=== PATIENT | male | born 1945 | race Two or more races ===

== ENCOUNTER 2016-11-28 14:15 | Emergency (ER) | payer MEDICARE, OTHER ==
[2016-11-28] MEDS ORDERED: SODIUM CHLORIDE 0.9% 2,000 ML IV STA (14:39)
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
[2016-11-28 15:02] LABS: Appearance,Urine Clear (Clear); Basophils # (A) 0.1 k/uL (0-0.2); Basophils % (A) 1 %; Bilirubin,Urine Negative (Negative); CH 30.3; CHCM 33.6; Eosinophils # (A) 0.2 k/uL (0-0.7); Eosinophils % (A) 2 %; Glucose,Urine (UA) 4+ (Negative); HCT 43.7 % (39.0-53.0); HDW 2.45; HGB 14.4 gm/dL (13.0-17.5); Ketones,Urine 1+ (Negative); Leukocyte Esterase,Urine Negative (Negative); Luc # (Auto) 0.26; Luc % (Auto) 3; Lymphocytes % (A) 26 %; MCH 29.9 pg (25.0-35.0); MCHC 33.1 g/dL (31.0-37.0); MCV 90.5 fL (80.0-100.0); Mean Platelet Volume 7.3; Monocytes # (A) 0.5 k/uL (0-1.0); Monocytes % (A) 6 %; Neutrophils # (A) 4.9 k/uL (1.3-7.7); Neutrophils % (A) 63 %; Nitrite,Urine Negative (Negative); Protein,Urine Negative (Negative); RBC 4.83 m/uL (4.30-5.90); RDW 13.6 % (11.5-15.5); Specific Gravity,Urine 1.027 (1.001-1.035); UA Billing (MACRO vs. MICRO) CHEM; Urobilinogen,Urine <2.0 mg/dL (<2.0); WBC 7.8 k/uL (3.8-10.6)
[2016-11-28 15:15] LABS: ALT 53 U/L (21-72); AST 28 U/L (17-59); Alkaline Phosphatase 76 U/L (38-126); Anion Gap 14 mmol/L; Blood Urea Nitrogen 13 mg/dL (9-20); Calcium 9.5 mg/dL (8.4-10.2); Carbon Dioxide 23 mmol/L (22-30); Chloride 104 mmol/L (98-107); Glucose 200 mg/dL (74-99); Magnesium 1.6 mg/dL (1.6-2.3); Non-African American GFR(MDRD) >60 (>60 ml/min/1.73 sqM); Phosphorous 2.7 mg/dL (2.5-4.5); Potassium 3.7 mmol/L (3.5-5.1); Sodium 141 mmol/L (137-145); Total Bilirubin 0.5 mg/dL (0.2-1.3); Total Protein 7.2 g/dL (6.3-8.2)
[2016-11-28 15:21] LABS: Glucose,Whole Blood 193 mg/dL (75-99)
[2016-11-28] MEDS ORDERED: ACETAMINOPHEN TAB 500 MG TAB PO STA (15:31)
[2016-11-28 15:49] VITALS: BP 154/78; PULSE 74; RESP 16; TEMP 98.1
[2016-11-28 15:55] LABS: Glucose,Whole Blood 137 mg/dL (75-99)
[2016-11-29 10:44] LABS: Glucose,Whole Blood 223 mg/dL (75-99)
== END 2016-11-28 15:56 | disposition home or self-care (01) ==
LOC: EC 14:15
DX: E11.65 Type 2 diabetes mellitus with hyperglycemia (principal); Z79.84 Long term (current) use of oral hypoglycemic drugs; F17.200 Nicotine dependence, unspecified, uncomplicated
CPT/HCPCS: 36415; 80053; 81003; 82009; 83735; 84100; 85025; 87086; 96360; 99284

== ENCOUNTER 2017-02-28 07:33 | Emergency (ER) | payer MEDICARE, OTHER ==
[2017-02-28] MEDS ORDERED: FAMOTIDINE 20 MG/2 ML VIAL IV STA (08:13)
[2017-02-28] MEDS ORDERED: SODIUM CHLORIDE 0.9% 1,000 ML IV STA (08:13)
[2017-02-28] MEDS ORDERED: DICYCLOMINE 10 MG/ML 2 ML AMP IM STA (08:13)
[2017-02-28] MEDS ORDERED: ONDANSETRON 4 MG/2 ML VIAL IVP STA (08:13)
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
[2017-02-28 08:29] LABS: Basophils # (A) 0.1 k/uL (0-0.2); Basophils % (A) 1 %; CH 30.8; CHCM 34.6; Eosinophils # (A) 0.2 k/uL (0-0.7); Eosinophils % (A) 2 %; HDW 2.96; HGB 14.7 gm/dL (13.0-17.5); Luc # (Auto) 0.27; Luc % (Auto) 3; Lymphocytes # (A) 2.3 k/uL (1.0-4.8); Lymphocytes % (A) 27 %; MCH 30.7 pg (25.0-35.0); MCHC 34.3 g/dL (31.0-37.0); MCV 89.5 fL (80.0-100.0); Mean Platelet Volume 8.1; Monocytes # (A) 0.6 k/uL (0-1.0); Monocytes % (A) 7 %; Neutrophils # (A) 5.3 k/uL (1.3-7.7); Neutrophils % (A) 60 %; RDW 14.1 % (11.5-15.5); WBC 8.7 k/uL (3.8-10.6); WBC (Perox) 8.58
[2017-02-28 08:50] LABS: ALT 50 U/L (21-72); AST 37 U/L (17-59); Alkaline Phosphatase 107 U/L (38-126); Amylase 55 U/L (30-110); Anion Gap 12 mmol/L; Blood Urea Nitrogen 9 mg/dL (9-20); Calcium 9.1 mg/dL (8.4-10.2); Carbon Dioxide 27 mmol/L (22-30); Chloride 107 mmol/L (98-107); Glucose 132 mg/dL (74-99); Non-African American GFR(MDRD) >60 (>60 ml/min/1.73 sqM); Potassium 3.5 mmol/L (3.5-5.1); Sodium 146 mmol/L (137-145); Total Bilirubin 0.8 mg/dL (0.2-1.3); Total Protein 7.9 g/dL (6.3-8.2)
--- NOTE | 2017-02-28 09:05 | XR ---
EXAMINATION TYPE: XR KUB DATE OF EXAM: 02/28/2017 8:59 AM COMPARISON: 09/16/2016 HISTORY: Upper abdominal pain for 2 days with associated anorexia TECHNIQUE: Upright single abdominal radiograph was obtained in the KUB projection. FINDINGS: Cholecystectomy clips reside within the right upper quadrant. Surgical sutures are seen zuhair ng the left hemidiaphragm. There is a mild rotational dextroconvex curvature of the thoracolumbar spi ne. Bowel gas pattern is unremarkable and nonobstructive. No abnormal radiopaque densities are seen w ithin the abdomen or pelvis. IMPRESSION: 1. Nonobstructive bowel gas pattern. 2. No radiopaque calculi within the abdomen or pelvis. 3. Postsurgical changes along the left hemidiaphragm and within the gallbladder fossa.
[2017-02-28 09:39] VITALS: TEMP 98.3
[2017-02-28 09:39] LABS: Appearance,Urine Clear (Clear); Bilirubin,Urine Negative (Negative); Glucose,Urine (UA) 4+ (Negative); Ketones,Urine 1+ (Negative); Leukocyte Esterase,Urine Negative (Negative); Nitrite,Urine Negative (Negative); PH, Urine 8.5 (5.0-8.0); Protein,Urine Negative (Negative); Specific Gravity,Urine 1.022 (1.001-1.035); UA Billing (MACRO vs. MICRO) CHEM; Urobilinogen,Urine <2.0 mg/dL (<2.0)
[2017-02-28] MEDS ORDERED: MORPHINE SULFATE 4 MG/ML SYRINGE IV STA (09:39)
[2017-02-28] MEDS ORDERED: RX INFO: IV CONTRAST WAS GIVEN 1 EACH MISC MISCELLANE PRN (09:39)
--- NOTE | 2017-02-28 10:54 | CT ---
EXAMINATION TYPE: CT abdomen pelvis w con DATE OF EXAM: 02/28/2017 10:45 AM COMPARISON: 09/16/2016 HISTORY: Headache and Pain CT DLP: 797.00 mGycm Automated exposure control for dose reduction was used. TECHNIQUE: Helical acquisition of images was performed from the lung bases through the pelvis. CONTRAST: Performed with Oral Contrast and with IV Contrast, patient injected with 100 ml mL of Omnipaque 300. FINDINGS: LUNG BASES: Left hemidiaphragm elevation is similar to the prior with sutures along the left hemidiap hragm and left basilar atelectasis. Pleural parenchymal scarring is also noted on the right as well a s minimal right basilar atelectasis. LIVER/GB: Diffuse hypoattenuation of the hepatic parenchyma is noted compatible with underlying hepat ic steatosis. This finding limits evaluation for underlying hepatic masses. No gross evidence of hepa tic masses seen. Gallbladder is surgically absent. PANCREAS: No pancreatic ductal dilatation. Pancreas is abnormal enhancement and morphology. SPLEEN: No significant abnormality is seen. ADRENALS: No significant abnormality is seen. KIDNEYS: The kidneys enhance and excrete symmetrically. FREE AIR: No free air is visualized. RETROPERITONEAL ADENOPATHY: None visualized REPRODUCTIVE ORGANS: [place] gland is heterogenous and enlarged measuring up to 5.3 cm in greatest tr ansverse dimension. URINARY BLADDER: No significant abnormality is seen. PELVIC ADENOPATHY: None visualized. OSSEOUS STRUCTURES: No significant abnormality is seen. BOWEL: Scattered sigmoid diverticula are seen without pericolonic fat stranding. Bowel is nondilated and nonobstructed. Appendix is within normal limits of size. OTHER: Abdominal aorta is of normal course and caliber with calcified and noncalcified atheromatous c hanges of the abdominal aorta and its branches. IMPRESSION: 1. OVERALL UNCHANGED EXAM IN COMPARISON TO THE PRIOR WITH NO ACUTE INTRA-ABDOMINAL PATHOLOGY IDENTIFI ED. 2. HEPATIC STEATOSIS. 3. SIGMOID DIVERTICULOSIS WITHOUT EVIDENCE OF DIVERTICULITIS. 4. POSTSURGICAL CHANGES ALONG THE LEFT HEMIDIAPHRAGM WITH LEFT HEMIDIAPHRAGM ELEVATION AND LEFT BASIL AR ATELECTASIS.
[2017-02-28 11:30] VITALS: BP 123/76; PULSE 95; RESP 18
== END 2017-02-28 11:37 | disposition home or self-care (01) ==
LOC: EC 07:33
DX: R10.9 Unspecified abdominal pain (principal); R51 Headache; R63.8 Other symptoms and signs concerning food and fluid intake; E11.9 Type 2 diabetes mellitus without complications; F17.200 Nicotine dependence, unspecified, uncomplicated; Z79.84 Long term (current) use of oral hypoglycemic drugs; Z90.49 Acquired absence of other specified parts of digestive tract
CPT/HCPCS: 36415; 80053; 82150; 83690; 85025; 81003; 74000; 74177; 99285; 96374; 96375 ×2; 96372; J2270; J0500; J2405; Q9967

== ENCOUNTER 2017-05-19 11:43 | Emergency (ER) | payer MEDICARE, OTHER ==
[2017-05-19] MEDS ORDERED: SODIUM CHLORIDE 0.9% 1,000 ML IV STA (12:31)
[2017-05-19] MEDS ORDERED: SODIUM CHLORIDE 0.9% 500 ML IV STA (12:31)
[2017-05-19 12:38] LABS: Glucose,Whole Blood 111 mg/dL (75-99)
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
[2017-05-19 13:10] VITALS: TEMP 98
[2017-05-19] MEDS ORDERED: MORPHINE SULFATE 4 MG/ML SYRINGE IVP STA (13:11)
[2017-05-19] MEDS ORDERED: SODIUM CHLORIDE 0.9% 500 ML IV ONE (13:12)
[2017-05-19 13:14] LABS: Basophils # (A) 0.1 k/uL (0-0.2); Basophils % (A) 1 %; CH 29.8; CHCM 33.6; Eosinophils # (A) 0.2 k/uL (0-0.7); Eosinophils % (A) 2 %; HCT 44.8 % (39.0-53.0); HDW 2.51; HGB 14.8 gm/dL (13.0-17.5); Luc # (Auto) 0.18; Luc % (Auto) 2; Lymphocytes # (A) 2.5 k/uL (1.0-4.8); Lymphocytes % (A) 29 %; MCH 29.5 pg (25.0-35.0); MCHC 33.1 g/dL (31.0-37.0); MCV 89.1 fL (80.0-100.0); Mean Platelet Volume 7.7; Monocytes # (A) 0.5 k/uL (0-1.0); Monocytes % (A) 6 %; Neutrophils # (A) 5.2 k/uL (1.3-7.7); Neutrophils % (A) 61 %; RBC 5.03 m/uL (4.30-5.90); RDW 14.8 % (11.5-15.5); WBC 8.6 k/uL (3.8-10.6); WBC (Perox) 8.22
[2017-05-19 13:21] VITALS: PULSE 69
[2017-05-19 13:25] LABS: INR 0.9 (<1.2); Prothrombin Time 9.7 sec (9.0-12.0)
[2017-05-19 13:33] LABS: ALT 28 U/L (21-72); AST 25 U/L (17-59); Alkaline Phosphatase 95 U/L (38-126); Anion Gap 12 mmol/L; Blood Urea Nitrogen 6 mg/dL (9-20); Calcium 9.6 mg/dL (8.4-10.2); Carbon Dioxide 24 mmol/L (22-30); Chloride 103 mmol/L (98-107); Glucose 101 mg/dL (74-99); Magnesium 1.8 mg/dL (1.6-2.3); Non-African American GFR(MDRD) >60 (>60 ml/min/1.73 sqM); Phosphorous 2.8 mg/dL (2.5-4.5); Potassium 4.3 mmol/L (3.5-5.1); Sodium 139 mmol/L (137-145); Total Bilirubin 0.4 mg/dL (0.2-1.3); Total Protein 7.8 g/dL (6.3-8.2)
[2017-05-19 13:36] LABS: Creatine Kinase 128 U/L (55-170)
[2017-05-19 13:49] LABS: Creatine Kinase MB 1.3 ng/mL (0.0-2.4); Troponin I <0.012 ng/mL (0.000-0.034)
--- NOTE | 2017-05-19 13:54 | CT ---
EXAMINATION TYPE: CT brain wo con DATE OF EXAM: 05/19/2017 COMPARISON: Previous study dated 06/07/2016 HISTORY: Dizziness, MORENO, weakness CT DLP: 1121 mGycm Automated exposure control for dose reduction was used. FINDINGS: There are generalized changes of sulcal prominence and ventriculomegaly, compatible with mild atrophi c change. There is diffuse periventricular white matter lucency, compatible with small vessel ischemi c change. There is no acute focal lesion, mass effect or midline shift identified. I do not see evide nce of intracranial blood. There is a 1.8 cm retention cyst or polyp involving the inferior aspect of the right maxillary sinus. There is mild, chronic mucoperiosteal thickening involving the left maxillary sinus. The remaining p aranasal sinuses are clear. Fluid in the attic of both middle ears has cleared. IMPRESSION: 1. NO ACUTE INTRACRANIAL ABNORMALITY. 2. ATROPHIC CHANGE. 3. CHRONIC WHITE MATTER ISCHEMIC CHANGE. 4. MUCOPERIOSTEAL DISEASE INVOLVING BOTH MAXILLARY SINUSES.
--- NOTE | 2017-05-19 13:59 | XR ---
EXAMINATION TYPE: XR chest 2V DATE OF EXAM: 05/19/2017 COMPARISON: 09/16/2016 HISTORY: Shortness of breath TECHNIQUE: Frontal and lateral views of the chest are obtained. FINDINGS: Scattered senescent parenchymal changes noted. Hyperinflation compatible with COPD. No evidence for infiltrate. No evidence for atelectasis. Left basilar parenchymal scarring. Chronic p leural thickening bilateral costophrenic angles. Heart size is stable. Mediastinal structures are stable and grossly unremarkable. No evidence for hilar prominence. Degenerative changes dorsal spine. IMPRESSION: 1. No evidence for acute pulmonary disease.
[2017-05-19 14:24] VITALS: BP 119/71; RESP 17
== END 2017-05-19 14:45 | disposition home or self-care (01) ==
LOC: EC 11:43
DX: R53.1 Weakness (principal); R53.83 Other fatigue; R42 Dizziness and giddiness; R51 Headache; R41.82 Altered mental status, unspecified; E11.9 Type 2 diabetes mellitus without complications; F17.200 Nicotine dependence, unspecified, uncomplicated; Z79.84 Long term (current) use of oral hypoglycemic drugs; Z79.899 Other long term (current) drug therapy
CPT/HCPCS: 99284; 96374; 96361; 36415; 93005; 80053; 82550; 82553; 83735; 84100; 84484; 85025; 85610; 85730; 71020; 70450; J2270

== ENCOUNTER 2017-08-10 17:11 | Emergency (ER) | payer MEDICARE ==
[2017-08-10 17:28] VITALS: RESP 18; TEMP 98.7
[2017-08-10] MEDS ORDERED: SODIUM CHLORIDE 0.9% 1,000 ML IV STA ×2 (17:41)
[2017-08-10] MEDS ORDERED: ONDANSETRON 4 MG/2 ML VIAL IVP STA (17:41)
[2017-08-10] MEDS ORDERED: LORazepam 2 MG/ML INJ IV STA (17:41)
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
[2017-08-10 18:30] LABS: Basophils # (A) 0.1 k/uL (0-0.2); Basophils % (A) 1 %; CH 29.9; CHCM 32.7; Eosinophils # (A) 0.2 k/uL (0-0.7); Eosinophils % (A) 3 %; HCT 42.3 % (39.0-53.0); HDW 2.56; HGB 13.7 gm/dL (13.0-17.5); Luc # (Auto) 0.27; Luc % (Auto) 3; Lymphocytes # (A) 2.3 k/uL (1.0-4.8); Lymphocytes % (A) 25 %; MCH 29.7 pg (25.0-35.0); MCHC 32.3 g/dL (31.0-37.0); Mean Platelet Volume 7.4; Monocytes # (A) 0.7 k/uL (0-1.0); Monocytes % (A) 7 %; Neutrophils # (A) 5.4 k/uL (1.3-7.7); Neutrophils % (A) 61 %; RDW 14.5 % (11.5-15.5); WBC 8.9 k/uL (3.8-10.6); WBC (Perox) 8.78
[2017-08-10 18:35] LABS: Prothrombin Time 10.4 sec (9.0-12.0)
[2017-08-10 18:39] LABS: Appearance,Urine Clear (Clear); Bilirubin,Urine Negative (Negative); Glucose,Urine (UA) Negative (Negative); Ketones,Urine Negative (Negative); Leukocyte Esterase,Urine Negative (Negative); Nitrite,Urine Negative (Negative); Protein,Urine Trace (Negative); Specific Gravity,Urine 1.024 (1.001-1.035); UA Billing (MACRO vs. MICRO) CHEM; Urobilinogen,Urine <2.0 mg/dL (<2.0)
[2017-08-10 18:43] LABS: Glucose,Whole Blood 74 mg/dL (75-99)
[2017-08-10 18:45] LABS: ALT 24 U/L (21-72); AST 15 U/L (17-59); Alkaline Phosphatase 70 U/L (38-126); Amylase 49 U/L (30-110); Anion Gap 10 mmol/L; Blood Urea Nitrogen 18 mg/dL (9-20); Calcium 9.3 mg/dL (8.4-10.2); Carbon Dioxide 22 mmol/L (22-30); Chloride 110 mmol/L (98-107); Glucose 80 mg/dL (74-99); Non-African American GFR(MDRD) >60 (>60 ml/min/1.73 sqM); Potassium 3.6 mmol/L (3.5-5.1); Sodium 142 mmol/L (137-145); Total Bilirubin 0.2 mg/dL (0.2-1.3); Total Protein 7.2 g/dL (6.3-8.2)
--- NOTE | 2017-08-10 19:17 | XR ---
EXAMINATION TYPE: XR chest 2V DATE OF EXAM: 08/10/2017 COMPARISON: Prior chest x-ray 05/19/2017 HISTORY: Headache and dizziness, nausea, COPD TECHNIQUE: Frontal and lateral views of the chest are obtained. FINDINGS: Cardiac mediastinal silhouette, pulmonary vascularity and ramos are stable. There is some e levation of the left hemidiaphragm which is chronic. Patchy basilar density is noted. Interstitium is increased. There are overlying cardiac leads. There are areas of possible scarring present. Suspect there are calcified pleural plaques. Hyperinflation may be indicative of COPD. IMPRESSION: No acute cardiopulmonary process. Possible asbestos related disease.
--- NOTE | 2017-08-10 19:18 | XR ---
Abdomen HISTORY: Dizziness, nausea Frontal view of the abdomen on 2 images correlated to prior abdomen 02/28/2017 Calcified pleural plaque noted. There are basilar scarring changes. Surgical clips present in the rig ht upper quadrant. There is a mild spinal curvature. No evident bowel obstruction or pneumoperitoneum . There are vascular calcifications. IMPRESSION: Nonobstructive bowel gas pattern.
[2017-08-10] MEDS ORDERED: ORPHENADRINE 30 MG/ML 2 ML VIAL IVP STA (19:53)
[2017-08-10] MEDS ORDERED: KETOROLAC 30 MG/ML 1 ML VIAL IVP STA (19:53)
--- NOTE | 2017-08-10 19:54 | CT ---
EXAMINATION TYPE: CT brain wo con DATE OF EXAM: 08/10/2017 COMPARISON: Prior CT 05/19/2017 HISTORY: Headache and dizziness. History of diabetes. CT DLP: 1177.00 mGycm Automated exposure control for dose reduction was used. Helical acquisition through the brain FINDINGS: Minimal inflammatory change noted in the paranasal sinuses. Cerebral vascular calcifications are pres ent. There is no hemorrhage or hydrocephalus. Cortical atrophy is noted. Periventricular white matter shows patchy low attenuation. IMPRESSION: STABLE EXAM, NO ACUTE ABNORMALITY. AGE-RELATED CHANGES OF ATROPHY AND PROBABLE CHRONIC SMALL VESSEL I SCHEMIA. MILD SINUS DISEASE.
[2017-08-10 20:26] VITALS: BP 147/78; PULSE 66
== END 2017-08-10 20:25 | disposition home or self-care (01) ==
LOC: EC 17:11
DX: R51 Headache (principal); E11.649 Type 2 diabetes mellitus with hypoglycemia without coma; R11.0 Nausea; R10.816 Epigastric abdominal tenderness; I10 Essential (primary) hypertension; F17.200 Nicotine dependence, unspecified, uncomplicated; Z79.84 Long term (current) use of oral hypoglycemic drugs; Z79.899 Other long term (current) drug therapy
CPT/HCPCS: 96375 ×4; 96361 ×2; 96374 ×2; 99285 ×2; 36415; 93005; 80053; 82150; 83690; 84484; 85025; 85610; 81003; 71020; 74000; 70450; J2060; J2360; J2405; J1885

== ENCOUNTER 2017-10-15 14:56 | Emergency (ER) | payer MEDICARE | END 2017-10-15 16:40 | disposition home or self-care (01) | LOC: EC 14:56 | DX: L29.9 Pruritus, unspecified (principal); F17.200 Nicotine dependence, unspecified, uncomplicated | CPT/HCPCS: 99282 ==

== ENCOUNTER 2018-01-01 16:42 | Emergency (ER) | payer MEDICARE ==
[2018-01-01] MEDS ORDERED: SODIUM CHLORIDE 0.9% 500 ML IV ONE (17:19)
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
[2018-01-01 17:37] VITALS: RESP 18
[2018-01-01 17:50] LABS: Basophils # (A) 0.1 k/uL (0-0.2); Basophils % (A) 1 %; Eosinophils # (A) 0.2 k/uL (0-0.7); Eosinophils % (A) 2 %; HCT 40.3 % (39.0-53.0); HGB 13.7 gm/dL (13.0-17.5); Lymphocytes # (A) 2.3 k/uL (1.0-4.8); Lymphocytes % (A) 27 %; MCH 29.6 pg (25.0-35.0); MCHC 34.1 g/dL (31.0-37.0); MCV 86.8 fL (80.0-100.0); Mean Platelet Volume 7.1; Monocytes # (A) 0.5 k/uL (0-1.0); Monocytes % (A) 6 %; Neutrophils # (A) 5.2 k/uL (1.3-7.7); Neutrophils % (A) 61 %; Platelet Count 331 k/uL (150-450); RBC 4.65 m/uL (4.30-5.90); RDW 14.2 % (11.5-15.5); WBC 8.5 k/uL (3.8-10.6)
[2018-01-01 18:03] LABS: ALT 21 U/L (21-72); AST 26 U/L (17-59); Albumin 4.5 g/dL (3.5-5.0); Alkaline Phosphatase 88 U/L (38-126); Anion Gap 13 mmol/L; Blood Urea Nitrogen 12 mg/dL (9-20); Calcium 9.8 mg/dL (8.4-10.2); Carbon Dioxide 20 mmol/L (22-30); Chloride 105 mmol/L (98-107); Glucose 141 mg/dL (74-99); Potassium 4.5 mmol/L (3.5-5.1); Sodium 138 mmol/L (137-145); Total Bilirubin 0.5 mg/dL (0.2-1.3); Total Protein 7.9 g/dL (6.3-8.2)
[2018-01-01] MEDS ORDERED: KETOROLAC 30 MG/ML 1 ML VIAL IVP STA (18:16)
[2018-01-01] MEDS ORDERED: ACETAMINOPHEN TAB 325 MG TAB PO STA (18:16)
--- NOTE | 2018-01-01 18:35 | CT ---
EXAMINATION TYPE: CT brain wo con DATE OF EXAM: 01/01/2018 HISTORY: Headache CT DLP: 1051.6 mGycm. Automated Exposure Control for Dose Reduction was Utilized. TECHNIQUE: CT scan of the head is performed without contrast. COMPARISON: CT brain August 10, 2017. FINDINGS: There is no acute intracranial hemorrhage or midline shift identified. There is diffuse v entricular and sulcal prominence consistent with diffuse age-related cerebral atrophy. There is low- attenuation in the periventricular white matter consistent with chronic small vessel ischemic change. The globes remain intact bilaterally. There is persistent mild mucosal thickening and small polyp formation in bilateral ethmoid sinuses. Stable. There is chronic opacity and sclerosis of bilateral mastoid air cells redemonstrated IMPRESSION: No acute intracranial hemorrhage or midline shift. There is persistent mild diffuse age -related cerebral atrophy and moderate chronic small vessel ischemic change redemonstrated. No signif icant change from prior CT.
[2018-01-01 18:38] VITALS: PULSE 70
[2018-01-01 19:16] VITALS: BP 142/80; TEMP 98.7
[2018-01-01 19:19] LABS: T4, Free (Free Thyroxine) 1.19 ng/dL (0.78-2.19)
== END 2018-01-01 19:54 | disposition home or self-care (01) ==
LOC: EC 16:42
DX: E03.9 Hypothyroidism, unspecified (principal); R51 Headache; E11.9 Type 2 diabetes mellitus without complications; I10 Essential (primary) hypertension; F17.200 Nicotine dependence, unspecified, uncomplicated; Z79.84 Long term (current) use of oral hypoglycemic drugs; Z79.899 Other long term (current) drug therapy
CPT/HCPCS: 36415; 84439; 80053; 84443; 85025; 70450; 99284; 96374; 96361 ×2; J1885

== ENCOUNTER → 2018-02-01 | Outpatient (CLI) | payer MEDICARE ==
[2018-02-01 12:47] LABS: HCT 40.4 % (39.0-53.0); HGB 13.7 gm/dL (13.0-17.5); MCHC 33.8 g/dL (31.0-37.0); MCV 88.7 fL (80.0-100.0); Mean Platelet Volume 7.1; Platelet Count 315 k/uL (150-450); RBC 4.56 m/uL (4.30-5.90); RDW 14.2 % (11.5-15.5); WBC 9.3 k/uL (3.8-10.6)
[2018-02-01 13:09] LABS: ALT 33 U/L (21-72); AST 21 U/L (17-59); Albumin 4.5 g/dL (3.5-5.0); Alkaline Phosphatase 94 U/L (38-126); Anion Gap 16 mmol/L; Blood Urea Nitrogen 10 mg/dL (9-20); Calcium 9.6 mg/dL (8.4-10.2); Carbon Dioxide 24 mmol/L (22-30); Chloride 106 mmol/L (98-107); Glucose 122 mg/dL (74-99); Sodium 146 mmol/L (137-145); Total Bilirubin 0.3 mg/dL (0.2-1.3); Total Protein 7.6 g/dL (6.3-8.2)
== END | disposition home or self-care (01) ==
LOC: LABWHC1 12:03
PROVIDERS: ATTEND Physician Assistant
DX: L29.9 Pruritus, unspecified (principal)
CPT/HCPCS: 36415; 80053; 85027

== ENCOUNTER 2018-03-08 05:07 | Inpatient (IN) | payer MEDICARE ==
--- NOTE | 2018-03-08 07:07 | XR ---
EXAM: XR Chest, 2 Views CLINICAL HISTORY: ITS.REASON XR Reason: Pain TECHNIQUE: Frontal and lateral views of the chest. COMPARISON: 08/10/17. FINDINGS: Lungs: Redemonstration of chronic lung changes with prominent interstitial opacities and bibasilar scarring/atelectasis. Pleural space: Persistent elevated left hemidiaphragm. No pneumothorax. Heart: Stable cardiomediastinal silhouette. Mediastinum: See above. Bones/joints: Stable. IMPRESSION: Chronic lung changes with mild basilar opacities, query scarring/atelectasis. Mild superimposed acute process is difficult to completely exclude, recommend clinical correlation.
[2018-03-08] MEDS ORDERED: IPRATROPIUM 0.5 MG/2.5 ML NEBU INHALATION STA (07:44)
[2018-03-08] MEDS ORDERED: SODIUM CHLORIDE 0.9% 1,000 ML IV STA (07:44)
[2018-03-08] MEDS ORDERED: ALBUTEROL NEBULIZED 2.5 MG/3 ML INHALATION STA (07:44)
[2018-03-08] MEDS ORDERED: SODIUM CHLORIDE 0.9% 500 ML IV STA (07:44)
[2018-03-08] MEDS ORDERED: methylPREDNISolone SOD SUCCI 125 MG/2 ML VIAL IV STA (07:44)
[2018-03-08] MEDS ORDERED: MORPHINE SULFATE 4 MG/ML SYRINGE IVP STA (07:47)
[2018-03-08] MEDS ORDERED: MORPHINE SULFATE 4 MG/ML SYRINGE IVP PRN (07:47)
[2018-03-08] MEDS ORDERED: cefTRIAXone IN SWFI 1,000 MG/10 ML SYRINGE IVP STA (07:49)
[2018-03-08] MEDS ORDERED: AZITHROMYCIN 500 MG in SODIUM CHLORIDE 0.9% 250 ML IVPB STA (07:49)
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
[2018-03-08 08:19] LABS: Basophils % (A) 0 %; Eosinophils # (A) 0.4 k/uL (0-0.7); Eosinophils % (A) 4 %; HCT 37.3 % (39.0-53.0); HGB 12.3 gm/dL (13.0-17.5); Lymphocytes # (A) 2.2 k/uL (1.0-4.8); Lymphocytes % (A) 25 %; MCHC 33.1 g/dL (31.0-37.0); MCV 87.6 fL (80.0-100.0); Mean Platelet Volume 7.5; Monocytes # (A) 0.7 k/uL (0-1.0); Monocytes % (A) 7 %; Neutrophils # (A) 5.6 k/uL (1.3-7.7); Neutrophils % (A) 62 %; Platelet Count 326 k/uL (150-450); RBC 4.26 m/uL (4.30-5.90); RDW 14.2 % (11.5-15.5); WBC 9.1 k/uL (3.8-10.6)
[2018-03-08 08:33] LABS: ALT 31 U/L (21-72); AST 18 U/L (17-59); Alkaline Phosphatase 88 U/L (38-126); Anion Gap 13 mmol/L; Blood Urea Nitrogen 6 mg/dL (9-20); Carbon Dioxide 25 mmol/L (22-30); Chloride 104 mmol/L (98-107); Glucose 139 mg/dL (74-99); Magnesium 1.9 mg/dL (1.6-2.3); Potassium 3.8 mmol/L (3.5-5.1); Sodium 142 mmol/L (137-145); Total Bilirubin 0.3 mg/dL (0.2-1.3); Total Protein 6.6 g/dL (6.3-8.2)
[2018-03-08 08:41] LABS: Creatine Kinase 118 U/L (55-170)
[2018-03-08 08:42] LABS: D-Dimer 0.49 mg/L FEU (<0.60); INR 0.9 (<1.2); Partial Thromboplastin Time 23.7 sec (22.0-30.0); Prothrombin Time 9.4 sec (9.0-12.0)
[2018-03-08 08:54] LABS: Creatine Kinase MB 0.9 ng/mL (0.0-2.4); Troponin I <0.012 ng/mL (0.000-0.034)
[2018-03-08] MEDS ORDERED: NICOTINE 21MG/24HR PATCH TRANSDERM SCH (09:00)
--- NOTE | 2018-03-08 09:12 | XR ---
EXAMINATION TYPE: XR chest 2V DATE OF EXAM: 03/08/2018 COMPARISON: 08/10/2017 HISTORY: Difficulty breathing and cough TECHNIQUE: Frontal and lateral views of the chest are obtained. FINDINGS: There is pulmonary hyperinflation, biapical lucency and pleural parenchymal scarring versu s chronic atelectasis at the lung bases. Minimal left hemidiaphragm elevation is again chronic. Surgi ariella sutures overlying the right medial clavicle are noted. Probable cholecystectomy clips are seen. D egenerative changes of the glenohumeral joints and thoracic spine are mild. IMPRESSION: Chronic changes and sequela of COPD. No new acute cardiopulmonary process.
[2018-03-08] MEDS: ENOXAPARIN 40 MG/0.4 ML SYRINGE SQ SCH (11:07)
[2018-03-08] MEDS: IPRATROPIUM-ALBUTEROL 3 ML NEB INHALATION SCH ×3 (11:42→20:37)
[2018-03-08] MEDS ORDERED: methylPREDNISolone SOD SUCCI 125 MG/2 ML VIAL IV SCH (12:00)
[2018-03-08] MEDS ORDERED: IBUPROFEN 200 MG TAB PO PRN (12:02)
[2018-03-08] MEDS ORDERED: NALOXONE 0.4 MG/ML 1 ML VIAL IV PRN (12:03)
[2018-03-08] MEDS ORDERED: MELATONIN 3 MG TABLET PO PRN (12:03)
[2018-03-08] MEDS ORDERED: CALCIUM CARBONATE 500 MG CHEWABLE PO PRN (12:03)
[2018-03-08] MEDS ORDERED: ONDANSETRON 4 MG/2 ML VIAL IVP PRN (12:03)
[2018-03-08] MEDS ORDERED: ACETAMINOPHEN TAB 325 MG TAB PO PRN (12:03)
[2018-03-08 12:05] LABS: Glucose,Whole Blood 346 mg/dL (75-99)
[2018-03-08] MEDS ORDERED: INSULIN REGULAR BOLUS (FROM DRIP BAG) IV ONE (12:15)
[2018-03-08] MEDS ORDERED: INSULIN ASPART 100 UNIT/ML 1 ML 10 ML VIAL SQ SCH (12:30)
[2018-03-08] MEDS: INSULIN ASPART 100 UNIT/ML 1 ML 10 ML VIAL SQ SCH ×2 (12:48→18:00)
[2018-03-08] MEDS: INSULIN REGULAR 100 UNIT in SODIUM CHLORIDE 0.9% 100 ML IV SCH (12:48)
[2018-03-08] MEDS: metFORMIN 500 MG TAB PO SCH ×2 (12:53→20:48)
[2018-03-08] MEDS: HYDROcodone/APAP 10-325MG 1 EACH TAB PO PRN (12:53)
[2018-03-08] MEDS: LEVOTHYROXINE 25 MCG TAB PO SCH (12:54)
[2018-03-08] MEDS: LOSARTAN 50 MG TAB PO SCH (12:54)
[2018-03-08 13:37] LABS: Glucose,Whole Blood 312 mg/dL (75-99)
[2018-03-08 13:51] LABS: Glucose,Whole Blood 244 mg/dL (75-99)
[2018-03-08 15:18] LABS: Glucose,Whole Blood 160 mg/dL (75-99)
[2018-03-08] MEDS: MORPHINE ORAL SOLN 10 MG/5 ML CUP PO PRN ×2 (16:26→22:42)
[2018-03-08] MEDS: NICOTINE 14MG/24HR PATCH TRANSDERM SCH (16:27)
[2018-03-08] MEDS: BUDESONIDE 1 MG/2 ML NEBU INHALATION SCH ×2 (16:37→20:37)
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
[2018-03-08] MEDS: guaiFENesin 600 MG TABLET.ER PO SCH ×2 (17:26→20:49)
[2018-03-08 17:33] LABS: Glucose,Whole Blood 148 mg/dL (75-99)
[2018-03-08 19:25] LABS: Hemoglobin A1C 7.4 % (4.0-6.0)
[2018-03-08 19:30] LABS: Glucose,Whole Blood 216 mg/dL (75-99)
[2018-03-08 21:15] LABS: Glucose,Whole Blood 237 mg/dL (75-99)
[2018-03-08] MEDS: ALPRAZolam 0.25 MG TAB PO PRN (22:42)
[2018-03-08] MEDS: methylPREDNISolone SOD SUCCI 40 MG/ML 1 ML VIAL IV SCH (22:43)
[2018-03-08 23:18] LABS: Glucose,Whole Blood 198 mg/dL (75-99)
[2018-03-09] MEDS: IPRATROPIUM-ALBUTEROL 3 ML NEB INHALATION SCH ×8 (00:22→23:55)
[2018-03-09 01:18] LABS: Glucose,Whole Blood 209 mg/dL (75-99)
[2018-03-09 03:28] LABS: Glucose,Whole Blood 195 mg/dL (75-99)
[2018-03-09 05:26] LABS: Glucose,Whole Blood 183 mg/dL (75-99)
[2018-03-09] MEDS: MORPHINE ORAL SOLN 10 MG/5 ML CUP PO PRN ×2 (05:36→20:08)
[2018-03-09] MEDS: LEVOTHYROXINE 25 MCG TAB PO SCH (06:08)
[2018-03-09] MEDS: INSULIN REGULAR 100 UNIT in SODIUM CHLORIDE 0.9% 100 ML IV SCH (07:02)
[2018-03-09 07:22] LABS: Glucose,Whole Blood 170 mg/dL (75-99)
[2018-03-09] MEDS: NICOTINE 14MG/24HR PATCH TRANSDERM SCH (07:56)
[2018-03-09] MEDS: ENOXAPARIN 40 MG/0.4 ML SYRINGE SQ SCH (07:56)
[2018-03-09] MEDS: methylPREDNISolone SOD SUCCI 40 MG/ML 1 ML VIAL IV SCH ×3 (07:56→23:04)
[2018-03-09] MEDS: INSULIN ASPART 100 UNIT/ML 1 ML 10 ML VIAL SQ SCH ×4 (07:56→23:05)
[2018-03-09] MEDS: cefTRIAXone IN SWFI 1,000 MG/10 ML SYRINGE IVP SCH (07:56)
[2018-03-09] MEDS: LOSARTAN 50 MG TAB PO SCH (07:57)
[2018-03-09] MEDS: metFORMIN 500 MG TAB PO SCH ×2 (07:57→21:49)
[2018-03-09] MEDS: guaiFENesin 600 MG TABLET.ER PO SCH ×2 (07:57→21:50)
[2018-03-09] MEDS: BUDESONIDE 1 MG/2 ML NEBU INHALATION SCH ×2 (08:21→19:12)
[2018-03-09] MEDS ORDERED: AZITHROMYCIN 500 MG in SODIUM CHLORIDE 0.9% 250 ML IVPB SCH (09:00)
[2018-03-09 09:12] LABS: Glucose,Whole Blood 252 mg/dL (75-99)
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
[2018-03-09 11:35] LABS: Glucose,Whole Blood 154 mg/dL (75-99)
[2018-03-09 13:52] LABS: Glucose,Whole Blood 238 mg/dL (75-99)
--- NOTE | 2018-03-09 14:55 | CT ---
EXAMINATION TYPE: CT chest wo con DATE OF EXAM: 03/09/2018 COMPARISON: CT chest February 13, 2010. HISTORY: Shortness of breath and cough for [address] DLP: 604 mGycm. Automated Exposure Control for Dose Reduction was Utilized. TECHNIQUE: CT scan of the thorax is performed without IV contrast. FINDINGS: LUNGS: There is persistent elevated left hemidiaphragm. There is persistent bibasilar scarring and/or atelectasis. There is background mild to moderate emphysematous change most prominent in the lung ap ices with mild to moderate biapical pleural/parenchymal scarring. There is stable 5 x 4 mm nodule axi al image 30 unchanged from prior study axial image 25. No new consolidation or groundglass opacity is seen. No pleural effusion or pneumothorax is evident bilaterally. Calcification or less likely sutur es are noted at level of left hemidiaphragm. Correlate clinically MEDIASTINUM: Lack of IV contrast is noted to limit evaluation for mediastinal and especially hilar ad enopathy. There are no definitive new greater than 1 cm hilar or mediastinal lymph nodes. Subcarinal lymph node measures 1.8 x 1.1 cm on axial image 32 not significantly changed from prior study. No c ardiomegaly or pericardial effusion is seen. There is 4 vessel origin from aortic arch which is que l variant. OTHER: Visualized liver is hypodense consistent with fatty infiltration. Cholecystectomy clips are re demonstrated. Slight underlying scoliosis and upper thoracic spine is again seen. There is mild to mo derate multilevel anterior and lateral spurring in the lower thoracic spine. IMPRESSION: Chronic emphysematous change with bibasilar scarring and/or atelectasis and elevated left hemidiaphragm. No suspicious acute pulmonary process.
[2018-03-09 15:07] LABS: Glucose,Whole Blood 189 mg/dL (75-99)
[2018-03-09] MEDS: HYDROcodone/APAP 10-325MG 1 EACH TAB PO PRN (15:21)
[2018-03-09 17:13] LABS: Glucose,Whole Blood 131 mg/dL (75-99)
[2018-03-09 18:49] LABS: Glucose,Whole Blood 205 mg/dL (75-99)
[2018-03-09 20:59] LABS: Glucose,Whole Blood 315 mg/dL (75-99)
--- NOTE | 2018-03-09 21:23 | PN ---
PROGRESS NOTE DATE OF SERVICE: 03/09/18. PRESENTING COMPLAINT: Short of breath, wheezing. INTERVAL HISTORY: The patient is a smoker who presented with COPD exacerbation, cough, some little sputum, up to the bathroom. Feels a shade better. Did tolerate a diet. Did some wheezing and still some wheezing and cough is present. REVIEW OF SYSTEMS: Done for constitutional, cardiovascular, GI, pulmonary and relevant findings as above. CURRENT MEDICATIONS: Reviewed that include IV Solu-Medrol, nebulized bronchodilator, Azithromycin, ceftriaxone. PHYSICAL EXAMINATION: Temperature 98.7, pulse 100, respirations 17, blood pressure 132/86, pulse ox 91% on room air. General appearance: Sitting up, awake. Eyes pupils are equal. Conjunctivae normal. HEENT external appearance of nose and ears normal. Oral cavity normal. Neck JVD not raised. Mass not palpable. Respiratory effort increased. Lungs decreased breath sounds. Some basal crackles. Prolonged expiration. Cardiovascular first and second sounds normal. No edema. ABDOMEN: Soft, nontender. Liver and spleen not palpable. PSYCHIATRY: Alert and oriented x3. Mood and affect slightly anxious. INVESTIGATIONS: Accu-Cheks are noted. ASSESSMENT: 1. Acute right lower lobe pneumonia suspect gram-negative organism, present on admission. 2. Acute chronic obstructive pulmonary disease exacerbation in a patient known smoker. 3. Chronic nicotine dependence patient is a cigarette smoker. 4. Diabetes mellitus type 2, uncontrolled, hypoglycemia, remains on insulin drip. 5. Essential hypertension. 6. Hypothyroidism. 7. Chronic low back pain from osteoarthritis. 8. Hyperglycemia, uncontrolled, steroids, patient requiring insulin drip. PLAN: Continue current medication and treatment plan. We will stop the insulin drip and use some Lantus instead. MMODL / IJN: [id number] /
[2018-03-09] MEDS: INSULIN DETEMIR 100 UNIT/ML 10 ML VIAL SQ SCH (21:49)
[2018-03-09 22:13] LABS: Glucose,Whole Blood 288 mg/dL (75-99)
[2018-03-10] MEDS: HYDROcodone/APAP 10-325MG 1 EACH TAB PO PRN ×2 (02:05→10:37)
[2018-03-10] MEDS: IPRATROPIUM-ALBUTEROL 3 ML NEB INHALATION SCH ×6 (03:45→23:48)
[2018-03-10] MEDS: LEVOTHYROXINE 25 MCG TAB PO SCH (06:29)
[2018-03-10 07:05] LABS: Glucose,Whole Blood 197 mg/dL (75-99)
[2018-03-10] MEDS: metFORMIN 500 MG TAB PO SCH ×2 (07:55→21:06)
[2018-03-10] MEDS: guaiFENesin 600 MG TABLET.ER PO SCH ×2 (07:55→21:06)
[2018-03-10] MEDS: methylPREDNISolone SOD SUCCI 40 MG/ML 1 ML VIAL IV SCH ×3 (07:55→23:01)
[2018-03-10] MEDS: cefTRIAXone IN SWFI 1,000 MG/10 ML SYRINGE IVP SCH (07:55)
[2018-03-10] MEDS: LOSARTAN 50 MG TAB PO SCH (07:56)
[2018-03-10] MEDS: ENOXAPARIN 40 MG/0.4 ML SYRINGE SQ SCH (07:56)
[2018-03-10] MEDS: AZITHROMYCIN 500 MG TAB PO SCH (07:56)
[2018-03-10] MEDS: INSULIN ASPART 100 UNIT/ML 1 ML 10 ML VIAL SQ SCH ×7 (07:56→20:40)
[2018-03-10] MEDS: BUDESONIDE 1 MG/2 ML NEBU INHALATION SCH ×2 (08:59→19:31)
[2018-03-10 09:13] LABS: Anion Gap 18 mmol/L; Blood Urea Nitrogen 14 mg/dL (9-20); Calcium 9.7 mg/dL (8.4-10.2); Carbon Dioxide 22 mmol/L (22-30); Chloride 102 mmol/L (98-107); Glucose 209 mg/dL (74-99); Potassium 3.9 mmol/L (3.5-5.1); Sodium 142 mmol/L (137-145)
[2018-03-10 11:39] LABS: Glucose,Whole Blood 205 mg/dL (75-99)
[2018-03-10 17:33] LABS: Glucose,Whole Blood 152 mg/dL (75-99)
[2018-03-10] MEDS: MORPHINE ORAL SOLN 10 MG/5 ML CUP PO PRN (17:33)
[2018-03-10] MEDS: NICOTINE 14MG/24HR PATCH TRANSDERM SCH (17:33)
[2018-03-10 20:33] LABS: Glucose,Whole Blood 103 mg/dL (75-99)
[2018-03-10] MEDS: INSULIN DETEMIR 100 UNIT/ML 10 ML VIAL SQ SCH (21:06)
--- NOTE | 2018-03-11 00:09 | PN ---
PROGRESS NOTE DATE OF SERVICE: March 10, 2018. PRESENTING COMPLAINT: Short of breath. INTERVAL HISTORY: Patient is a smoker, presented with COPD exacerbation. Still this sputum is coming up. Still wheezing, feeling a shade better. Diet is improving. He has been up to the bathroom a couple of times. REVIEW OF SYSTEMS: Done for constitutional, cardiovascular, GI, pulmonary findings as above. CURRENT MEDICATIONS: Reviewed that include Zithromax and ceftriaxone. PHYSICAL EXAMINATION: Temperature 97.2, pulse 72, respiratory 18, blood pressure fluctuating, will get a 2nd reading. Last reading was 198/88, though also reading with 140 present pulse ox 98% on room air. General appearance: Sitting up in bed, awake. Eyes: Pupils equal, conjunctivae normal. HEENT external appearance of nose and ears normal. Oral cavity normal. Neck JVD not raised. Mass not palpable. Respiratory effort increased. Lungs decreased breath sounds. Prolonged expiration and wheezing. Cardiovascular: 1st and 2nd sounds normal. No edema. ABDOMEN: Soft, nontender. Liver and spleen not palpable. Psychiatry: Alert and oriented x3. Mood and affect normal. INVESTIGATIONS: CT scan of chest shows elevated left diaphragm. Potassium 3.9. Hematocrit is normal. Accu-Cheks are noted. ASSESSMENT: 1. Pneumonia suspect gram-negative organism, slowly improving. 2. Acute chronic obstructive pulmonary disease exacerbation in a patient with known smoker. 3. Chronic nicotine dependence in a cigarette smoker. 4. Diabetes mellitus type 2 uncontrolled. 5. Hyperglycemia. Remains on insulin drip. 6. Essential hypertension. 7. Hypothyroidism. 8. Chronic low back pain from osteoarthritis. 9. Chronically elevated left diaphragm. PLAN: Continue medication and treatment plan. Care was discussed with the patient. Encouraged to ambulate. MMODL / IJN: [id number] /
[2018-03-11] MEDS: IPRATROPIUM-ALBUTEROL 3 ML NEB INHALATION SCH ×6 (02:56→23:55)
[2018-03-11] MEDS: ALPRAZolam 0.25 MG TAB PO PRN (03:22)
[2018-03-11] MEDS: LEVOTHYROXINE 25 MCG TAB PO SCH (06:43)
[2018-03-11] MEDS: HYDROcodone/APAP 10-325MG 1 EACH TAB PO PRN ×2 (07:16→22:32)
[2018-03-11 07:19] LABS: Glucose,Whole Blood 199 mg/dL (75-99)
[2018-03-11] MEDS: BUDESONIDE 1 MG/2 ML NEBU INHALATION SCH ×2 (07:28→20:10)
[2018-03-11] MEDS: INSULIN ASPART 100 UNIT/ML 1 ML 10 ML VIAL SQ SCH ×7 (08:09→20:47)
[2018-03-11] MEDS: methylPREDNISolone SOD SUCCI 40 MG/ML 1 ML VIAL IV SCH ×3 (08:09→20:40)
[2018-03-11] MEDS: cefTRIAXone IN SWFI 1,000 MG/10 ML SYRINGE IVP SCH (08:09)
[2018-03-11] MEDS: guaiFENesin 600 MG TABLET.ER PO SCH ×2 (08:10→20:40)
[2018-03-11] MEDS: ENOXAPARIN 40 MG/0.4 ML SYRINGE SQ SCH (08:10)
[2018-03-11] MEDS: LOSARTAN 50 MG TAB PO SCH (08:10)
[2018-03-11] MEDS: metFORMIN 500 MG TAB PO SCH ×2 (08:10→20:40)
[2018-03-11] MEDS: AZITHROMYCIN 500 MG TAB PO SCH (08:10)
[2018-03-11] MEDS: NICOTINE 14MG/24HR PATCH TRANSDERM SCH (08:25)
[2018-03-11 08:55] LABS: Anion Gap 16 mmol/L; Blood Urea Nitrogen 20 mg/dL (9-20); Calcium 9.7 mg/dL (8.4-10.2); Carbon Dioxide 25 mmol/L (22-30); Chloride 99 mmol/L (98-107); Glucose 207 mg/dL (74-99); Potassium 4.7 mmol/L (3.5-5.1); Sodium 140 mmol/L (137-145)
[2018-03-11] MEDS: MORPHINE ORAL SOLN 10 MG/5 ML CUP PO PRN ×2 (11:12→18:16)
[2018-03-11] MEDS ORDERED: MAGNESIUM HYDROXIDE 2,400 MG/10 ML CUP PO PRN (11:57)
[2018-03-11 12:29] LABS: Glucose,Whole Blood 171 mg/dL (75-99)
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
[2018-03-11 16:50] LABS: Glucose,Whole Blood 279 mg/dL (75-99)
[2018-03-11] MEDS: CEFUROXIME 250 MG TAB PO SCH (20:40)
[2018-03-11] MEDS: INSULIN DETEMIR 100 UNIT/ML 10 ML VIAL SQ SCH (20:47)
--- NOTE | 2018-03-11 20:49 | PN ---
PROGRESS NOTE DATE OF SERVICE: 03/11/2018 PRESENTING COMPLAINT: Short of breath. INTERVAL HISTORY: Patient with a COPD exacerbation. Breathing is getting better, still short of breath when he gets about. Overall doing better, tolerating his diet well, being followed by Pulmonary. REVIEW OF SYSTEMS: Done for constitutional, cardiovascular, GI, pulmonary; relevant findings as above. CURRENT MEDICATIONS: Reviewed that include IV Solu-Medrol. EXAMINATION: Temperature 98.3, pulse 92, respirations 18, blood pressure 162/95 pulse ox 98% on 2L. GENERAL APPEARANCE: Sitting up, not in distress. EYES: Pupils equal. Conjunctivae normal. HEENT: External nose and ears normal. Oral cavity normal. NECK: JVD not raised. Mass not palpable. RESPIRATORY: Effort increased. LUNGS: Decreased breath sounds. Prolonged expiration, wheezing. CARDIOVASCULAR: First and second sounds normal. No edema. ABDOMEN: Soft, nontender. Liver and spleen not palpable. PSYCHIATRY: Alert and oriented x3. Mood and affect anxious-appearing. INVESTIGATIONS: Potassium 4.7. Accu-Cheks are noted. ASSESSMENT: 1. Pneumonia, suspect gram-negative organism, improving. 2. Acute chronic obstructive pulmonary disease exacerbation in a patient with known smoker, slow to respond. 3. Chronic nicotine dependence in a cigarette smoker. 4. Diabetes mellitus type 2, uncontrolled with hyperglycemia. The patient has been on insulin drip. 5. Essential hypertension. 6. Hypothyroidism. 7. Chronic low back pain from osteoarthritis. 8. Chronically elevated left diaphragm. The patient is off the insulin drip. Continue current medication and treatment plan. Since the patient is afebrile, will switch over to oral antibiotic. MMODL / IJN: [id number] /
[2018-03-11 20:52] LABS: Glucose,Whole Blood 232 mg/dL (75-99)
[2018-03-12] MEDS: IPRATROPIUM-ALBUTEROL 3 ML NEB INHALATION SCH ×5 (03:39→20:32)
[2018-03-12] MEDS: LEVOTHYROXINE 25 MCG TAB PO SCH (06:13)
[2018-03-12 07:28] LABS: Glucose,Whole Blood 264 mg/dL (75-99)
[2018-03-12] MEDS: INSULIN ASPART 100 UNIT/ML 1 ML 10 ML VIAL SQ SCH ×7 (08:05→21:44)
[2018-03-12] MEDS: ENOXAPARIN 40 MG/0.4 ML SYRINGE SQ SCH (08:06)
[2018-03-12] MEDS: CEFUROXIME 250 MG TAB PO SCH ×2 (08:06→21:47)
[2018-03-12] MEDS: methylPREDNISolone SOD SUCCI 40 MG/ML 1 ML VIAL IV SCH (08:06)
[2018-03-12] MEDS: metFORMIN 500 MG TAB PO SCH ×2 (08:06→21:46)
[2018-03-12] MEDS: guaiFENesin 600 MG TABLET.ER PO SCH ×2 (08:07→21:46)
[2018-03-12] MEDS: LOSARTAN 50 MG TAB PO SCH (08:07)
[2018-03-12] MEDS: AZITHROMYCIN 500 MG TAB PO SCH (08:07)
[2018-03-12] MEDS: NICOTINE 14MG/24HR PATCH TRANSDERM SCH (08:08)
[2018-03-12 08:33] LABS: Anion Gap 15 mmol/L; Blood Urea Nitrogen 21 mg/dL (9-20); Calcium 9.9 mg/dL (8.4-10.2); Carbon Dioxide 23 mmol/L (22-30); Chloride 98 mmol/L (98-107); Glucose 234 mg/dL (74-99); Potassium 4.4 mmol/L (3.5-5.1); Sodium 136 mmol/L (137-145)
[2018-03-12] MEDS: BUDESONIDE 1 MG/2 ML NEBU INHALATION SCH ×2 (08:43→20:32)
[2018-03-12] MEDS: MORPHINE ORAL SOLN 10 MG/5 ML CUP PO PRN (11:13)
[2018-03-12 12:14] LABS: Glucose,Whole Blood 262 mg/dL (75-99)
[2018-03-12 17:19] LABS: Glucose,Whole Blood 140 mg/dL (75-99)
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
[2018-03-12] MEDS: HYDROcodone/APAP 10-325MG 1 EACH TAB PO PRN (18:22)
--- NOTE | 2018-03-12 20:43 | PN ---
PROGRESS NOTE DATE OF SERVICE: March 12, 2018. PRESENT COMPLAINT: Short of breath. INTERVAL HISTORY: The patient presented with COPD exacerbation. Cough is getting better. Sputum production is minimal. Appetite is getting better. Up and about from the bathroom. REVIEW OF SYSTEMS: Done for constitutional, cardiovascular, GI, pulmonary; relevant findings as above. CURRENT MEDICATIONS: Reviewed that include IV Solu-Medrol, bronchodilators, Zithromax, Ceftin. PHYSICAL EXAMINATION: Temperature 99.2, pulse 93, respiration 16, blood pressure 127/78, pulse ox 98% on room air. General appearance: Sitting up in a chair, more comfortable. Eyes pupils are equal. Conjunctivae normal. HEENT: External appearance of nose and ears normal. Oral cavity normal. Neck JVD not raised. Mass not palpable. Respiratory effort increased. Lungs decreased breath sounds. Decreased wheezing. Cardiovascular 1st and second sounds normal. No edema. ABDOMEN: Soft, nontender. Liver and spleen not palpable. Psychiatry: Alert and oriented x3. Mood and affect normal. INVESTIGATIONS: Potassium 4.4. Accu-Cheks are noted. ASSESSMENT: 1. Pneumonia suspect gram-negative organism. Continues to improve. 2. Acute chronic obstructive pulmonary disease exacerbation in a no smoker getting better. 3. Chronic nicotine dependence in a cigarette smoker. 4. Diabetes mellitus type 2, uncontrolled with hypoglycemia. 5. Essential hypertension. 6. Hypothyroidism. 7. Chronic low back pain from osteoarthritis. 8. Chronically elevated left diaphragm. PLAN: Overall doing much better. Patient was switched over to oral steroids. Care was discussed with the patient. Looking for possible discharge tomorrow. MMODL / IJN: [id number] /
[2018-03-12 21:09] LABS: Glucose,Whole Blood 116 mg/dL (75-99)
[2018-03-12] MEDS: predniSONE 20 MG TAB PO SCH (21:46)
[2018-03-12] MEDS: INSULIN DETEMIR 100 UNIT/ML 10 ML VIAL SQ SCH (21:47)
[2018-03-13] MEDS: IPRATROPIUM-ALBUTEROL 3 ML NEB INHALATION SCH ×4 (00:25→11:43)
[2018-03-13] MEDS: LEVOTHYROXINE 25 MCG TAB PO SCH (06:21)
[2018-03-13 07:39] LABS: Glucose,Whole Blood 222 mg/dL (75-99)
[2018-03-13 07:43] VITALS: BP 134/82; RESP 16; TEMP 97.4
[2018-03-13] MEDS: CEFUROXIME 250 MG TAB PO SCH (07:45)
[2018-03-13] MEDS: INSULIN ASPART 100 UNIT/ML 1 ML 10 ML VIAL SQ SCH ×4 (07:45→12:05)
[2018-03-13] MEDS: AZITHROMYCIN 500 MG TAB PO SCH (07:46)
[2018-03-13] MEDS: guaiFENesin 600 MG TABLET.ER PO SCH (07:46)
[2018-03-13] MEDS: metFORMIN 500 MG TAB PO SCH (07:46)
[2018-03-13] MEDS: ENOXAPARIN 40 MG/0.4 ML SYRINGE SQ SCH (07:46)
[2018-03-13] MEDS: LOSARTAN 50 MG TAB PO SCH (07:47)
[2018-03-13] MEDS: predniSONE 20 MG TAB PO SCH (07:47)
[2018-03-13] MEDS: BUDESONIDE 1 MG/2 ML NEBU INHALATION SCH (08:01)
[2018-03-13 11:56] VITALS: PULSE 96
[2018-03-13 12:09] LABS: Glucose,Whole Blood 182 mg/dL (75-99)
[2018-03-13 12:37] LABS: Anion Gap 17 mmol/L; Blood Urea Nitrogen 25 mg/dL (9-20); Calcium 10.1 mg/dL (8.4-10.2); Carbon Dioxide 22 mmol/L (22-30); Chloride 99 mmol/L (98-107); Glucose 221 mg/dL (74-99); Potassium 4.9 mmol/L (3.5-5.1); Sodium 138 mmol/L (137-145)
--- NOTE | 2018-03-14 06:10 | DS ---
DISCHARGE SUMMARY DATE OF ADMISSION: 03/08/2018 DATE OF DISCHARGE: 03/13/2018 FINAL DIAGNOSES: 1. Pneumonia suspect gram-negative organism. 2. Acute chronic obstructive pulmonary disease exacerbation in a current smoker. 3. Chronic nicotine dependence in a cigarette smoker. 4. Diabetes mellitus type 2, uncontrolled with hyperglycemia. 5. Essential hypertension. 6. Hypothyroidism. 7. Chronic low back pain from osteoarthritis. 8. Chronically elevated left diaphragm. HOSPITAL COURSE: This is a patient presented with pneumonia, COPD exacerbation, doing much better with antibiotics. By the time of discharge, tolerating a diet. ON EXAM: LUNGS: Improved air entry. CARDIOVASCULAR: First and second sounds normal. CONSULTATION: Dr. Bakari Herbert from Pulmonary. DISCHARGE MEDICATIONS: 1. Metformin 1000 mg b.i.d. 2. Cozaar 100 mg daily. 3. Advil 200 mg q.8 p.r.n. 4. Synthroid 25 mcg a day. 5. [place] 10 one tablet t.i.d. p.r.n. 6. Ceftin 500 mg p.o. b.i.d. 6 tablets. 7. DuoNeb t.i.d. 8. Melatonin 3 mg at bedtime p.r.n. 9. Nicotine patch 14, 30. 10.Prednisone taper. Follow up with Dr. Bakari Herbert in one week. MMODL / IJN: [id number] /
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
== END 2018-03-13 15:22 | disposition home or self-care (01) | DRG 177 ==
LOC: EC 05:07 → 4MS4W 07:45
PROVIDERS: ADMIT Hospitalist; ATTEND Hospitalist
DX: J15.6 Pneumonia due to other Gram-negative bacteria (principal); J96.21 Acute and chronic respiratory failure with hypoxia; J44.0 Chronic obstructive pulmonary disease with (acute) lower respiratory infection; J44.1 Chronic obstructive pulmonary disease with (acute) exacerbation; E11.42 Type 2 diabetes mellitus with diabetic polyneuropathy; E11.65 Type 2 diabetes mellitus with hyperglycemia; E03.9 Hypothyroidism, unspecified; F17.210 Nicotine dependence, cigarettes, uncomplicated; T38.0X5A Adverse effect of glucocorticoids and synthetic analogues, initial encounter; G89.29 Other chronic pain; I11.9 Hypertensive heart disease without heart failure; K21.9 Gastro-esophageal reflux disease without esophagitis; J98.6 Disorders of diaphragm; M47.9 Spondylosis, unspecified; K40.90 Unilateral inguinal hernia, without obstruction or gangrene, not specified as recurrent; M19.90 Unspecified osteoarthritis, unspecified site; M54.5 Low back pain; Z79.899 Other long term (current) drug therapy; Z79.890 Hormone replacement therapy; Z79.84 Long term (current) use of oral hypoglycemic drugs; Z90.49 Acquired absence of other specified parts of digestive tract; Z90.2 Acquired absence of lung [part of]; Z83.3 Family history of diabetes mellitus; Y92.009 Unspecified place in unspecified non-institutional (private) residence as the place of occurrence of the external cause
CPT/HCPCS: 36415; 71046; 71250; 80048; 80053; 82550; 82553; 83036; 83735; 84484; 85025; 85379; 85610; 85730; 93005; 94640; 94760; 96374; 96375; 99285

== ENCOUNTER 2018-09-12 08:33 | Emergency (ER) | payer MEDICARE ==
[2018-09-12 08:59] VITALS: RESP 18
[2018-09-12] MEDS ORDERED: ONDANSETRON 4 MG/2 ML VIAL IVP STA (09:26)
[2018-09-12] MEDS ORDERED: HYDROmorphone 1 MG/ML 1 ML SYRINGE IVP STA (09:26)
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
[2018-09-12 10:26] LABS: Basophils % (A) 1 %; Eosinophils # (A) 0.2 k/uL (0-0.7); Eosinophils % (A) 2 %; HCT 43.6 % (39.0-53.0); HGB 14.2 gm/dL (13.0-17.5); Lymphocytes # (A) 1.9 k/uL (1.0-4.8); Lymphocytes % (A) 23 %; MCH 29.1 pg (25.0-35.0); MCHC 32.6 g/dL (31.0-37.0); MCV 89.4 fL (80.0-100.0); Mean Platelet Volume 7.3; Monocytes # (A) 0.5 k/uL (0-1.0); Monocytes % (A) 6 %; Neutrophils # (A) 5.6 k/uL (1.3-7.7); Neutrophils % (A) 66 %; Platelet Count 324 k/uL (150-450); RBC 4.87 m/uL (4.30-5.90); RDW 13.6 % (11.5-15.5); WBC 8.5 k/uL (3.8-10.6)
[2018-09-12 10:33] LABS: ALT 30 U/L (21-72); AST 37 U/L (17-59); Albumin 4.5 g/dL (3.5-5.0); Alkaline Phosphatase 102 U/L (38-126); Anion Gap 13 mmol/L; Blood Urea Nitrogen 9 mg/dL (9-20); Calcium 9.5 mg/dL (8.4-10.2); Carbon Dioxide 23 mmol/L (22-30); Chloride 103 mmol/L (98-107); Glucose 189 mg/dL (74-99); Magnesium 2.6 mg/dL (1.6-2.3); Potassium 4.2 mmol/L (3.5-5.1); Sodium 139 mmol/L (137-145); Total Bilirubin 0.5 mg/dL (0.2-1.3); Total Protein 7.8 g/dL (6.3-8.2)
[2018-09-12 10:51] LABS: Creatine Kinase 69 U/L (55-170)
[2018-09-12 10:54] LABS: INR 0.9 (<1.2); Partial Thromboplastin Time 22.9 sec (22.0-30.0); Prothrombin Time 9.4 sec (9.0-12.0)
--- NOTE | 2018-09-12 10:56 | CT ---
EXAMINATION TYPE: CT brain wo con DATE OF EXAM: 09/12/2018 COMPARISON: 01/01/2018 HISTORY: hypertension/headache CT DLP: 855.[address] of the brain was performed. The ventricles, basal cisterns and sulci overlying the cerebral convexities demonstrate mild enlargem ent. There is no evidence for intracranial hemorrhage or sulcal effacement. There is decreased attenuation about the periventricular white matter and deep white matter of both c erebral hemispheres, compatible with chronic small vessel ischemia. Differential diagnosis does inclu de demyelination. No mass effects are seen.No midline shift. Osseous calvarium is intact. Left maxillary mucosal thickening. If symptoms persist consider MRI. IMPRESSION: 1. Age related atrophic and chronic small vessel ischemic change without acute intracranial process s een at this time.
--- NOTE | 2018-09-12 11:00 | XR ---
EXAMINATION TYPE: XR chest 2V DATE OF EXAM: 09/12/2018 COMPARISON: 03/08/2018 HISTORY: 73-year-old male with chest pain and shortness of breath TECHNIQUE: PA and lateral views FINDINGS: Heart normal size. Mild elongation thoracic aorta. Mild diffuse interstitial prominence. Some minimal blunting of the right costophrenic angle without appreciable pleural effusion on the lateral view moore ggesting pleural parenchymal scarring. Strandy and patchy left basilar opacity. Stable line along the medial right upper lobe from prior wedge resection. Some more focal patchy peripheral right mid to u pper lung opacity. IMPRESSION: COPD with some atelectasis or early developing infiltrate at the peripheral right upper and midlung. Correlate for any infectious signs/symptoms. Continued bibasilar areas of atelectasis or scarring.
[2018-09-12 11:04] LABS: Creatine Kinase MB 0.7 ng/mL (0.0-2.4); Troponin I <0.012 ng/mL (0.000-0.034)
[2018-09-12] MEDS ORDERED: KETOROLAC 60 MG/2 ML VIAL IVP STA (11:29)
[2018-09-12 13:02] VITALS: BP 151/90; PULSE 70; TEMP 98.6
== END 2018-09-12 13:02 | disposition home or self-care (01) ==
LOC: EC 08:33
DX: R51 Headache (principal); J44.9 Chronic obstructive pulmonary disease, unspecified; E11.9 Type 2 diabetes mellitus without complications; I10 Essential (primary) hypertension; E03.9 Hypothyroidism, unspecified; K21.9 Gastro-esophageal reflux disease without esophagitis; F17.200 Nicotine dependence, unspecified, uncomplicated; Z79.84 Long term (current) use of oral hypoglycemic drugs; Z79.1 Long term (current) use of non-steroidal anti-inflammatories (NSAID); Z79.899 Other long term (current) drug therapy
CPT/HCPCS: 36415; 93005; 80053; 82550; 82553; 83735; 84484; 85025; 85610; 85730; 71046; 70450; 99284; 96374; 96375 ×2; J2405; J1885; J1170

== ENCOUNTER 2018-10-02 23:25 | Inpatient (IN) | payer MEDICARE ==
[2018-10-02] MEDS ORDERED: SODIUM CHLORIDE 0.9% 1,000 ML IV STA (23:33)
[2018-10-02] MEDS ORDERED: IPRATROPIUM-ALBUTEROL 3 ML NEB INHALATION STA (23:41)
[2018-10-02] MEDS ORDERED: methylPREDNISolone SOD SUCCI 125 MG/2 ML VIAL IV STA (23:41)
[2018-10-02] MEDS ORDERED: ALBUTEROL NEBULIZED 2.5 MG/3 ML INHALATION STA (23:42)
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
[2018-10-02] MEDS ORDERED: ACETAMINOPHEN TAB 500 MG TAB PO STA (23:50)
[2018-10-02 23:56] LABS: Basophils # (A) 0.1 k/uL (0-0.2); Basophils % (A) 0 %; Eosinophils # (A) 0.2 k/uL (0-0.7); Eosinophils % (A) 2 %; HCT 38.3 % (39.0-53.0); HGB 12.5 gm/dL (13.0-17.5); Lymphocytes # (A) 1.2 k/uL (1.0-4.8); Lymphocytes % (A) 10 %; MCH 29.1 pg (25.0-35.0); MCHC 32.7 g/dL (31.0-37.0); Mean Platelet Volume 7.2; Monocytes # (A) 0.6 k/uL (0-1.0); Monocytes % (A) 5 %; Neutrophils # (A) 9.9 k/uL (1.3-7.7); Neutrophils % (A) 81 %; Platelet Count 258 k/uL (150-450); RBC 4.31 m/uL (4.30-5.90); RDW 13.4 % (11.5-15.5); WBC 12.3 k/uL (3.8-10.6)
[2018-10-03 00:06] LABS: ALT 29 U/L (21-72); AST 34 U/L (17-59); Albumin 4.3 g/dL (3.5-5.0); Alkaline Phosphatase 84 U/L (38-126); Anion Gap 10 mmol/L; Blood Urea Nitrogen 12 mg/dL (9-20); Calcium 9.2 mg/dL (8.4-10.2); Carbon Dioxide 22 mmol/L (22-30); Chloride 104 mmol/L (98-107); Glucose 177 mg/dL (74-99); Magnesium 1.5 mg/dL (1.6-2.3); Potassium 4.3 mmol/L (3.5-5.1); Sodium 136 mmol/L (137-145); Total Bilirubin 0.3 mg/dL (0.2-1.3); Total Protein 7.1 g/dL (6.3-8.2)
[2018-10-03 00:16] LABS: INR 0.9 (<1.2); Partial Thromboplastin Time 23.8 sec (22.0-30.0); Prothrombin Time 9.6 sec (9.0-12.0)
[2018-10-03] MEDS ORDERED: MAGNESIUM SULFATE-D5W PMX 1 GM in DEXTROSE/WATER 1 100ML.BAG IVPB ONE ×2 (00:16→18:30)
[2018-10-03 00:21] LABS: Creatine Kinase 288 U/L (55-170)
[2018-10-03] MEDS ORDERED: AZITHROMYCIN 500 MG in SODIUM CHLORIDE 0.9% 250 ML IVPB STA (00:23)
--- NOTE | 2018-10-03 00:23 | XR ---
EXAMINATION TYPE: XR chest 2V DATE OF EXAM: 10/03/2018 COMPARISON: 09/12/2018 HISTORY: Difficulty breathing TECHNIQUE: Frontal and lateral views of the chest are obtained. FINDINGS: There is patchy atelectasis at the lung bases. There is no heart failure. Heart size is no rmal. There are no hilar masses. Mediastinum is normal. IMPRESSION: Bilateral lower lobe basilar atelectasis slightly worse than last exam. Normal heart.
[2018-10-03 00:33] LABS: Creatine Kinase MB 0.7 ng/mL (0.0-2.4); Troponin I <0.012 ng/mL (0.000-0.034)
[2018-10-03] MEDS ORDERED: IPRATROPIUM-ALBUTEROL 3 ML NEB INHALATION PRN (01:21)
[2018-10-03] MEDS ORDERED: ACETAMINOPHEN TAB 500 MG TAB PO PRN (01:42)
[2018-10-03] MEDS ORDERED: IBUPROFEN 600 MG TAB PO STA (01:50)
[2018-10-03] MEDS: SODIUM CHLORIDE 0.9% 1,000 ML IV SCH ×2 (01:54→16:58)
[2018-10-03 03:11] VITALS: BMI 26.2
[2018-10-03 05:43] LABS: Appearance,Urine Clear (Clear); Bilirubin,Urine Negative (Negative); Blood,Urine Negative (Negative); Color,Urine Light Yellow; Glucose,Urine (UA) 4+ (Negative); Ketones,Urine 1+ (Negative); Leukocyte Esterase,Urine Negative (Negative); Nitrite,Urine Negative (Negative); PH, Urine 5.5 (5.0-8.0); Protein,Urine Negative (Negative); Specific Gravity,Urine 1.015 (1.001-1.035); Urobilinogen,Urine <2.0 mg/dL (<2.0)
[2018-10-03 07:10] LABS: Glucose,Whole Blood 511 mg/dL (75-99)
[2018-10-03] MEDS: ALBUTEROL NEBULIZED 2.5 MG/3 ML INHALATION SCH ×4 (07:18→20:53)
[2018-10-03] MEDS ORDERED: INSULIN ASPART 100 UNIT/ML 1 ML 10 ML VIAL SQ ONE ×2 (08:15→12:16)
[2018-10-03] MEDS: predniSONE 20 MG TAB PO SCH (08:31)
[2018-10-03] MEDS ORDERED: DIVALPROEX 250 MG TABLET.DR PO SCH (09:00)
[2018-10-03] MEDS: NAPROXEN 250 MG TAB PO SCH ×2 (09:14→21:18)
[2018-10-03] MEDS: metFORMIN 500 MG TAB PO SCH ×2 (09:14→21:17)
[2018-10-03] MEDS: LEVOTHYROXINE 25 MCG TAB PO SCH (09:15)
[2018-10-03] MEDS: LOSARTAN-HCTZ 50-12.5 MG 1 EACH TAB PO SCH (09:16)
[2018-10-03] MEDS: HYDROcodone/APAP 10-325MG 1 EACH TAB PO PRN ×2 (10:23→17:24)
[2018-10-03 11:27] LABS: Glucose,Whole Blood 412 mg/dL (75-99)
[2018-10-03 11:42] LABS: Basophils % (A) 0 %; Eosinophils # (A) 0.1 k/uL (0-0.7); Eosinophils % (A) 0 %; HCT 35.4 % (39.0-53.0); HGB 11.6 gm/dL (13.0-17.5); Lymphocytes # (A) 0.8 k/uL (1.0-4.8); Lymphocytes % (A) 6 %; MCH 29.9 pg (25.0-35.0); MCHC 32.8 g/dL (31.0-37.0); MCV 91.1 fL (80.0-100.0); Mean Platelet Volume 7.7; Monocytes # (A) 0.3 k/uL (0-1.0); Monocytes % (A) 3 %; Neutrophils # (A) 11.6 k/uL (1.3-7.7); Neutrophils % (A) 90 %; Platelet Count 231 k/uL (150-450); RBC 3.89 m/uL (4.30-5.90); RDW 13.4 % (11.5-15.5); WBC 12.9 k/uL (3.8-10.6)
[2018-10-03 11:58] LABS: Albumin 3.9 g/dL (3.5-5.0); Calcium 9.3 mg/dL (8.4-10.2); Magnesium 2.1 mg/dL (1.6-2.3); Potassium 4.8 mmol/L (3.5-5.1); Total Bilirubin 0.2 mg/dL (0.2-1.3); Total Protein 6.6 g/dL (6.3-8.2)
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
[2018-10-03] MEDS: NICOTINE 14MG/24HR PATCH TRANSDERM SCH (12:28)
[2018-10-03] MEDS: guaiFENesin 600 MG TABLET.ER PO SCH ×2 (12:28→21:18)
[2018-10-03] MEDS: INSULIN ASPART 100 UNIT/ML 1 ML 10 ML VIAL SQ SCH ×3 (12:29→21:18)
[2018-10-03] MEDS ORDERED: SUMAtriptan SUCCINATE 25 MG TAB PO STA (12:42)
[2018-10-03] MEDS: ENOXAPARIN 40 MG/0.4 ML SYRINGE SQ SCH (13:06)
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
[2018-10-03 17:16] LABS: Glucose,Whole Blood 372 mg/dL (75-99)
[2018-10-03] MEDS: DIVALPROEX 250 MG TABLET.DR PO SCH (19:22)
[2018-10-03] MEDS: METOCLOPRAMIDE 5 MG/ML 2 ML VIAL IVP SCH (19:26)
[2018-10-03 21:15] LABS: Glucose,Whole Blood 329 mg/dL (75-99)
--- NOTE | 2018-10-03 21:39 | MR ---
EXAMINATION TYPE: MR brain wo/w con DATE OF EXAM: 10/03/2018 COMPARISON: None HISTORY: New onset headache TECHNIQUE: Multiplanar, multisequence images of the brain and brainstem is performed without and with IV contras t, utilizing 7.5 mL intravenous Gadavist . FINDINGS: There is cerebral cortical atrophy. There is no mass effect nor midline shift. There is no sign of intracranial hemorrhage. There is no evidence of cortical infarct. There is coalescent increa sed signal in the periventricular white matter with areas that measure up to 2 cm. The brain stem is intact. There is some mucosal thickening in the ethmoid sinus. Sella turcica appears normal. The contrast images show no pathologic enhancement. There is no evidence of an orbital mass. There is normal contrast opacification of the venous sinuses. There is arterial flow in the anterior middle a nd posterior cerebral arteries. There is arterial flow in the vertebrobasilar artery system. Sella tu rcica appears normal. IMPRESSION: Mild atrophy. Moderate periventricular white matter changes. I would consider both demyel inating disease and chronic small vessel ischemia. Mild sinusitis.
[2018-10-03 21:43] LABS: Hemoglobin A1C 9.1 % (4.0-6.0)
[2018-10-03] MEDS: AZITHROMYCIN 500 MG TAB PO SCH (23:27)
[2018-10-04] MEDS: HYDROcodone/APAP 10-325MG 1 EACH TAB PO PRN ×3 (00:29→16:46)
[2018-10-04] MEDS: methylPREDNISolone SOD SUCCI 125 MG/2 ML VIAL IV SCH ×3 (03:41→16:44)
[2018-10-04] MEDS: METOCLOPRAMIDE 5 MG/ML 2 ML VIAL IVP SCH ×3 (03:42→17:45)
[2018-10-04] MEDS: SODIUM CHLORIDE 0.9% 1,000 ML IV SCH ×3 (03:46→21:30)
[2018-10-04] MEDS: LEVOTHYROXINE 25 MCG TAB PO SCH (06:27)
[2018-10-04 07:06] LABS: Glucose,Whole Blood 304 mg/dL (75-99)
[2018-10-04] MEDS: predniSONE 20 MG TAB PO SCH (07:14)
[2018-10-04] MEDS: ALBUTEROL NEBULIZED 2.5 MG/3 ML INHALATION SCH ×4 (07:51→19:59)
[2018-10-04] MEDS: INSULIN ASPART 100 UNIT/ML 1 ML 10 ML VIAL SQ SCH ×4 (08:02→21:27)
[2018-10-04] MEDS: guaiFENesin 600 MG TABLET.ER PO SCH ×2 (08:08→21:25)
[2018-10-04] MEDS: metFORMIN 500 MG TAB PO SCH ×2 (08:08→21:26)
[2018-10-04] MEDS: FAMOTIDINE 20 MG TAB PO SCH (08:08)
[2018-10-04] MEDS: ENOXAPARIN 40 MG/0.4 ML SYRINGE SQ SCH (08:10)
[2018-10-04] MEDS: NAPROXEN 250 MG TAB PO SCH ×2 (08:11→22:24)
[2018-10-04] MEDS: LOSARTAN-HCTZ 50-12.5 MG 1 EACH TAB PO SCH (08:11)
[2018-10-04] MEDS: DIVALPROEX 250 MG TABLET.DR PO SCH ×3 (08:12→22:25)
[2018-10-04] MEDS: NICOTINE 14MG/24HR PATCH TRANSDERM SCH (08:17)
--- NOTE | 2018-10-04 09:24 | CONS ---
CONSULTATION DATE OF CONSULTATION: 10/03/2018 CHIEF COMPLAINT: Headache. HISTORY OF PRESENT ILLNESS: Mr. Camacho is a pleasant 73-year-old male, who is being evaluated today on 10/03/2018 by the neurology service per the request of Dr. Tejeda for intractable headache. The patient was brought into [facility] Emergency Room with the main complaint of uncontrolled coughing and shortness of breath. He also had a fever with a temperature of 102.5. His CBC showed leukocytosis at 12.3, and his chest x-ray showed evidence of right lower lobe pneumonia. He was started on IV antibiotics and admitted for further workup and management. He was also complaining of a headache that is mostly in the bilateral frontal region. He started having this headache several weeks ago and was recently started on Depakote with no improvements. He states that he has not had any radiological imaging done for his new onset headache. He denies any history of migraines. His comprehensive metabolic profile was normal except for hyperglycemia at 177. His cardiac enzymes were normal except for slightly elevated CPK at 288. His urinalysis and flu tests were normal. At the time of my evaluation, he is lying in his bed and appears to be in no acute distress. He is complaining of headache at the time of my evaluation, and rates it at 7 out of 10 in intensity. He describes the pain as a pressure pain and denies any associated photophobia or phonophobia, nausea or vomiting. He is also complaining of low back pain. He states he has chronic low back pain for several years. He denied any specific injury or trauma. He does take Epps at home as needed. PAST MEDICAL HISTORY: Chronic obstructive pulmonary disease, diabetes, gastroesophageal reflux disease, hypertension, hypothyroidism, chronic low back pain, history of lower GI bleed, history of orthopedic surgeries and cholecystectomy. SOCIAL HISTORY: The patient is a current everyday smoker. He denies any alcohol or drug use. FAMILY HISTORY: Positive for diabetes. HOME MEDICATIONS: Reviewed in the chart. ALLERGIES: No known drug allergies. REVIEW OF SYSTEMS: CONSTITUTIONAL: Positive for fatigue. EYES: Negative. ENT: Negative. CARDIOVASCULAR: Negative. RESPIRATORY: As mentioned above. NEUROLOGICAL: As mentioned above. He denies any lateralizing weakness. He does report numbness and tingling in bilateral feet. GASTROINTESTINAL: Negative. GENITOURINARY: Negative. PSYCHIATRIC: Negative. MUSCULOSKELETAL: As mentioned above. ENDOCRINE: Positive for diabetes and hypothyroidism. DERMATOLOGICAL: Negative. PHYSICAL EXAM: Vital signs show a temperature 97.6, pulse 77, respiration 17, blood pressure 118/72. GENERAL APPEARANCE: The patient is a well-developed, elderly male, who appears to be in no acute distress. HEENT: Normocephalic, atraumatic, no facial asymmetry is seen. NECK: Supple with no masses felt. CARDIOVASCULAR: Regular rate and rhythm. ABDOMEN: Nontender, nondistended. Extremities showed edema with no clubbing seen. NEUROLOGICAL EXAM: The patient is awake and oriented x3. Speech and language are normal. Strength is full in all 4 extremities. Sensory exam showed diminished light touch sensation in bilateral distal lower extremities. No facial asymmetry is seen on cranial nerve testing. No tremors or seizure-like activity is seen. IMPRESSION: 1. Intractable headache. 2. Pneumonia. 3. Chronic low back pain. 4. Lower extremity sensory deficit. 5. Diabetes. RECOMMENDATION: The patient continues to complain of a pressure headache mainly in the bilateral frontal region. He denies any previous history of headaches and started having these headaches several weeks ago given his current age, intracranial etiology needs to be ruled out. I will order an MRI of the brain with and without contrast. For his current pain, I will give him 3 doses of IV Solu-Medrol at 125 mg every 8 hours. I will also give him Reglan 10 mg IV every 8 hours and magnesium sulfate 1 gram as a single dose. An EEG has been ordered. 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 I discussed with him treatment options regarding his low back pain and this will be discussed further in outpatient clinic. Continue the rest of your current workup and management. I will continue to follow with you. Further recommendations to follow. Thank you for allowing me to participate in the care of your patient. If you have any questions, please feel free to contact me. MMVIPUL / IJN: [id number] /
[2018-10-04 09:45] LABS: Basophils % (A) 0 %; Eosinophils % (A) 0 %; HCT 36.7 % (39.0-53.0); Lymphocytes # (A) 1.6 k/uL (1.0-4.8); Lymphocytes % (A) 9 %; MCH 30.1 pg (25.0-35.0); MCHC 32.6 g/dL (31.0-37.0); MCV 92.1 fL (80.0-100.0); Mean Platelet Volume 7.8; Monocytes # (A) 0.6 k/uL (0-1.0); Monocytes % (A) 3 %; Neutrophils # (A) 15.1 k/uL (1.3-7.7); Neutrophils % (A) 87 %; Platelet Count 226 k/uL (150-450); RBC 3.98 m/uL (4.30-5.90); RDW 13.4 % (11.5-15.5); WBC 17.4 k/uL (3.8-10.6)
[2018-10-04 09:53] LABS: ALT 34 U/L (21-72); AST 40 U/L (17-59); Albumin 4.1 g/dL (3.5-5.0); Alkaline Phosphatase 76 U/L (38-126); Anion Gap 14 mmol/L; Blood Urea Nitrogen 21 mg/dL (9-20); Calcium 9.6 mg/dL (8.4-10.2); Carbon Dioxide 23 mmol/L (22-30); Chloride 100 mmol/L (98-107); Glucose 266 mg/dL (74-99); Magnesium 1.8 mg/dL (1.6-2.3); Potassium 4.7 mmol/L (3.5-5.1); Sodium 137 mmol/L (137-145); Total Bilirubin 0.4 mg/dL (0.2-1.3)
[2018-10-04 11:10] LABS: Glucose,Whole Blood 229 mg/dL (75-99)
--- NOTE | 2018-10-04 11:20 | P.PN ---
Subjective Progress Note Date: 10/04/18 This is a 73-year-old male, patient of [facility]. Patient has a known past medical history of COPD, diabetes mellitus type 2, GERD, hypertension , vertebral fractures, nicotine dependence and hypothyroidism. Patient presents to the emergency room with 3 day complaint of nonproductive cough and worsening shortness of breath with no improvement. Chest x-ray showed bilateral lower lobe atelectasis. He did have elevated white count 12.3 temp as high as 102.5 and was tachycardic on admission. Influenza screen was negative. He was started on Rocephin and azithromycin for a possible developing pneumonia. Was given 1 dose of IV Solu-Medrol in the ER. Pulmonary service has been placed on consult. Patient also complaining of a headache. Patient reports that his been dealing with frequent headaches since August. He is followed up with neurology in the outpatient setting he had a computed tomography scan of the brain in August with no acute changes. And he is recently been started on Depakote 3 days ago. Patient is still complaining of a headache. Did have some improvement with the Murdock. Patient denies any chest pain, nausea or vomiting, bowel movement changes or urinary symptoms. He did have elevated blood sugar in the 500s likely related to steroids this polyp as well as eating the neighboring patients burrito. Patient is been educated to follow diabetic diet. 10/04/18 patient reports improvement in his shortness of breath. Still having slight cough. He's been afebrile. IV site medical started by neurology in regards to patient's headache. MRI of the brain revealing mild atrophy, moderate periventricular white matter changes. Consider demyelination disease and chronic small vessel ischemic changes. And mild sinusitis. Patient doesn' t port some improvement in his headache with the IV Solu-Medrol. However, patient reports the headache is still persisting. Blood sugars are elevated in the 300s. NovoLog extra 5 units was given. If remains elevated patient will need to be placed on a insulin drip. Patient denies any chest pain. Reports having bowel movements. Denies any burning with urination. Objective - Vital Signs Vital signs: Vital Signs Temp 98.9 F 10/04/18 05:00 Pulse 84 10/04/18 08:01 Resp 16 10/04/18 05:00 BP 154/73 10/04/18 05:00 Pulse Ox 93 L 10/04/18 05:00 Intake & Output 10/03/18 10/04/18 10/04/18 18:59 06:59 18:59 Intake Total 2079 1300 Balance 2079 1300 Weight 83 kg Intake: Intake, IV Titration 900 800 Amount Magnesium Sulfate-D5w Pmx 100 1 gm In Dextrose/Water 1 100ml.bag @ 100 mls/hr IVPB ONCE ONE Rx#: [id number] Sodium Chloride 0.9% 1, 900 650 000 ml @ 75 mls/hr IV . [id number] TER[facility] Rx#:[id number] cefTRIAXone 1,000 mg In 50 Sodium Chloride 0.9% 50 ml @ 100 mls/hr IVPB Q24H [facility] Rx#:[id number] Oral 1180 500 Other: Voiding Method Toilet Toilet Toilet # Voids 3 1 - Exam Head normocephalic Neck supple Lungs a few coarse breath sounds and diminished bilaterally Heart regular rate and rhythm S1-S2, no rub or gallop Abdomen is soft nontender nondistended positive bowel sounds no hepatosplenomegaly Extremities no edema Neuro alert and orientated to 3 - Labs CBC & Chem 7: 10/04/18 09:02 10/04/18 09:02 Labs: Abnormal Lab Results - Last 24 Hours (Table) 10/03/18 10/03/18 10/03/18 Range/Units 11:22 11:22 11:22 WBC 12.9 H (3.8-10.6) k/uL RBC 3.89 L (4.30-5.90) m/uL Hgb 11.6 L (13.0-17.5) gm/dL Hct 35.4 L (39.0-53.0) % Neutrophils # 11.6 H (1.3-7.7) k/uL Lymphocytes # 0.8 L (1.0-4.8) k/uL Chloride 108 H (98-107) mmol/L Carbon Dioxide 20 L (22-30) mmol/L BUN 21 H (9-20) mg/dL Glucose 429 H (74-99) mg/dL POC Glucose (mg/dL) (75-99) mg/dL Hemoglobin A1c 9.1 H (4.0-6.0) % 10/03/18 10/03/18 10/03/18 Range/Units 11:26 17:15 21:13 WBC (3.8-10.6) k/uL RBC (4.30-5.90) m/uL Hgb (13.0-17.5) gm/dL Hct (39.0-53.0) % Neutrophils # (1.3-7.7) k/uL Lymphocytes # (1.0-4.8) k/uL Chloride (98-107) mmol/L Carbon Dioxide (22-30) mmol/L BUN (9-20) mg/dL Glucose (74-99) mg/dL POC Glucose (mg/dL) 412 H 372 H 329 H (75-99) mg/dL Hemoglobin A1c (4.0-6.0) % 10/04/18 10/04/18 10/04/18 Range/Units 07:04 09:02 09:02 WBC 17.4 H (3.8-10.6) k/uL RBC 3.98 L (4.30-5.90) m/uL Hgb 12.0 L (13.0-17.5) gm/dL Hct 36.7 L (39.0-53.0) % Neutrophils # 15.1 H (1.3-7.7) k/uL Lymphocytes # (1.0-4.8) k/uL Chloride (98-107) mmol/L Carbon Dioxide (22-30) mmol/L BUN 21 H (9-20) mg/dL Glucose 266 H (74-99) mg/dL POC Glucose (mg/dL) 304 H (75-99) mg/dL Hemoglobin A1c (4.0-6.0) % 10/04/18 Range/Units 11:08 WBC (3.8-10.6) k/uL RBC (4.30-5.90) m/uL Hgb (13.0-17.5) gm/dL Hct (39.0-53.0) % Neutrophils # (1.3-7.7) k/uL Lymphocytes # (1.0-4.8) k/uL Chloride (98-107) mmol/L Carbon Dioxide (22-30) mmol/L BUN (9-20) mg/dL Glucose (74-99) mg/dL POC Glucose (mg/dL) 229 H (75-99) mg/dL Hemoglobin A1c (4.0-6.0) % Microbiology - Last 24 Hours (Table) 10/02/18 23:40 Blood Culture - Preliminary Blood No Growth after 24 hours Assessment and Plan Assessment: 1. Acute COPD exacerbation: Continue nebulizer treatments and prednisone. Patient did receive 1 dose of IV Solu-Medrol in the ER. Await pulmonary evaluation 2. Possible developing community-acquired pneumonia: Chest x-ray showing bilateral lower lobe atelectasis. Patient currently on Rocephin and azithromycin. Consult pulmonary service. Add incentive spirometer. Add Mucinex 3. Sepsis present on admission with temporal 102.5, tachycardic and elevated white count 12.3. Influenza screen negative. Likely related to a possible developing pneumonia. Continue antibiotics. Continue IV fluids. Check blood culture. 4. Hypomagnesemia: Improved with supplement. Repeat magnesium 2.1 5. Nicotine dependence: Discussed smoking cessation greater than 3 minutes. add nicotine patch 6. Migraine headaches: Recently started on Depakote about [address] Irvin. Computed tomography scan of the brain completed in August 2018 showing no acute changes. Did reveal chronic small vessel ischemic changes and age-related atrophy. Patient still complaining of headaches. Did have some improvement with the Murdock. Patient evaluated by neurology. They have ordered 3 doses of IV Solu-Medrol and IV magnesium. MRI of the brain showing mild atrophy and moderate periventricular white matter changes. Await further neurology recommendations. 7. Essential hypertension. Blood pressure stable 8. Hypothyroidism continue Synthroid 9. History of vertebral fractures and chronic back pain 10. Diabetes type 2: resume metformin and add sliding scale. Hyperglycemia secondary to steroids. Patient receiving a dose of NovoLog 5 units. We'll monitor. If blood sugars remain elevated. Patient may require insulin drip. 11. Mild sinusitis. Continue antibiotics Consult physical therapy GI prophylaxis Pepcid and DVT prophylaxis Lovenox
[2018-10-04] MEDS ORDERED: BUTALB/APAP/CAFF 50-325-40MG TAB PO PRN (15:36)
--- NOTE | 2018-10-04 15:59 | P.PN ---
Subjective Progress Note Date: 10/04/18 Principal diagnosis: Patient is a pleasant 73-year-old male who is being followed by the neurology service for intractable headache. Patient reports he saw Dr. Irvin on Wednesday and was given Depakote 250 mg 3 times a day. Patient states no improvement in headache with Depakote. Patient became short of breath the following day and came to [facility] for evaluation. Patient does not have any history of migraine headaches. Patient had MRI of the brain done which showed mild atrophy. MRI of the brain also showed white matter changes. No acute finding. Patient has been receiving IV Solu-Medrol, Reglan and had a one-time dose of magnesium. Patient states this did help his headache. He reports his headache is back at this time. His blood pressure has been elevated which may be contributing to his headache. At the time of my evaluation, patient's resting comfortably in bed and appears to be in no acute distress. Objective - Vital Signs Vital signs: Vital Signs Temp 97.5 F L 10/04/18 12:23 Pulse 87 10/04/18 12:23 Resp 16 10/04/18 12:23 BP 162/83 10/04/18 12:23 Pulse Ox 91 L 10/04/18 12:23 Intake & Output 10/03/18 10/04/18 10/04/18 18:59 06:59 18:59 Intake Total 2080 1300 600 Balance 2080 1300 600 Weight 83 kg 83 kg Intake: Intake, IV Titration 900 800 600 Amount Magnesium Sulfate-D5w Pmx 100 1 gm In Dextrose/Water 1 100ml.bag @ 100 mls/hr IVPB ONCE ONE Rx#: [id number] Sodium Chloride 0.9% 1, 900 650 600 000 ml @ 75 mls/hr IV . [id number] [facility] Rx#:[id number] cefTRIAXone 1,000 mg In 50 Sodium Chloride 0.9% 50 ml @ 100 mls/hr IVPB Q24H TER[facility] Rx#:[id number] Oral 1180 500 Other: Voiding Method Toilet Toilet Toilet # Voids 3 1 - Exam PHYSICAL EXAM: GENERAL APPEARANCE: Patient is a well-developed, male who appears to be in no acute distress. HEENT: Normocephalic, atraumatic, no facial asymmetry is seen. Neck is supple with no masses felt. CARDIOVASCULAR: Regular rate and rhythm. ABDOMEN: Nontender, nondistended. EXTREMITIES: Show no edema or clubbing. NEUROLOGICAL EXAM: Patient is awake, alert, and oriented 3. Speech and language are normal. Strength is full in all 4 extremities. Sensory deficit noted to bilateral distal lower extremities. No facial asymmetry is seen on cranial nerve testing. No tremors or seizure-like activity noted. - Labs CBC & Chem 7: 10/04/18 09:02 10/04/18 09:02 Labs: Abnormal Lab Results - Last 24 Hours (Table) 10/03/18 10/03/18 10/03/18 Range/Units 11:22 17:15 21:13 WBC (3.8-10.6) k/uL RBC (4.30-5.90) m/uL Hgb (13.0-17.5) gm/dL Hct (39.0-53.0) % Neutrophils # (1.3-7.7) k/uL BUN (9-20) mg/dL Glucose (74-99) mg/dL POC Glucose (mg/dL) 372 H 329 H (75-99) mg/dL Hemoglobin A1c 9.1 H (4.0-6.0) % 10/04/18 10/04/18 10/04/18 Range/Units 07:04 09:02 09:02 WBC 17.4 H (3.8-10.6) k/uL RBC 3.98 L (4.30-5.90) m/uL Hgb 12.0 L (13.0-17.5) gm/dL Hct 36.7 L (39.0-53.0) % Neutrophils # 15.1 H (1.3-7.7) k/uL BUN 21 H (9-20) mg/dL Glucose 266 H (74-99) mg/dL POC Glucose (mg/dL) 304 H (75-99) mg/dL Hemoglobin A1c (4.0-6.0) % 10/04/18 Range/Units 11:08 WBC (3.8-10.6) k/uL RBC (4.30-5.90) m/uL Hgb (13.0-17.5) gm/dL Hct (39.0-53.0) % Neutrophils # (1.3-7.7) k/uL BUN (9-20) mg/dL Glucose (74-99) mg/dL POC Glucose (mg/dL) 229 H (75-99) mg/dL Hemoglobin A1c (4.0-6.0) % Microbiology - Last 24 Hours (Table) 10/02/18 23:40 Blood Culture - Preliminary Blood No Growth after 24 hours Assessment and Plan Plan: Impression: 1. Intractable headache 2. Pneumonia 3. Chronic low back pain 4. Lower extremity sensory deficit 5. Diabetes Recommendation: The patient continues to complain of headache which she describes as a pressure in his head. Patient states headache is mostly in the frontal area. Patient states headaches are new for him. This started in August. As mentioned above, MRI of the brain with and without contrast showed no acute abnormality. MRI of the brain did show small vessel ischemic disease or demyelinating disease which is in the differential. I recommend starting aspirin 81 mg for chronic small vessel ischemic disease as this is more likely in a patient this age. EEG was done and results are pending. As for his ongoing headache, I will prescribe Toradol 15 mg IV every 8 hours when necessary and Fioricet every 8 hours when necessary. No focal neurological deficit noted. As for his sensory deficit and low back pain, further workup can be performed in the outpatient clinic. Continue current medical management. I will continue to follow with you. Further recommendations to follow. I performed an examination of the patient and discussed the management with the RESTAURANT ASSISTANT MANAGER. I have reviewed the RESTAURANT ASSISTANT MANAGER notes and agree with the findings and plan of care.
[2018-10-04] MEDS: KETOROLAC 30 MG/ML 1 ML VIAL IVP PRN (16:45)
[2018-10-04 17:05] LABS: Glucose,Whole Blood 297 mg/dL (75-99)
--- NOTE | 2018-10-04 18:54 | P.PN ---
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, hypertension hypertensive cardiovascular disease, chronic migrainous headaches 10/04/2018, patient seen eval examined during the rounds cuff congestion shortness breath is improved respiratory status slightly better with still get short of breath and activity and exertion patient is still continue to complain of headaches intermittently neurology is evaluating this patient on is for EEG later on today 73-year-old male who has end-stage lung disease is severe COPD emphysema with complex past medical history associated with type 2 diabetes mellitus GERD hypertension a potential cardiovascular disease and disease The second to severe COPD emphysema patient has been long-term smoker he has not been feeling well for the last 3 or 4 days increased cuff congestion shortness of breath he was started on Rocephin for Zithromax with some relief and improvement but still get short of breath, patient has intermittent headaches as well neurology has been following, on specific questioning denies any seizure-like to a loss of consciousness hemiparesis, denies any chest pain or radiation of pain dye and dry as any bowel or bladder dysfunction Objective - Vital Signs Vital signs: Vital Signs Temp 97.5 F L 10/04/18 12:23 Pulse 80 10/04/18 16:47 Resp 16 10/04/18 12:23 BP 162/83 10/04/18 12:23 Pulse Ox 91 L 10/04/18 12:23 Intake & Output 10/03/18 10/04/18 10/04/18 18:59 06:59 18:59 Intake Total 2080 1300 600 Balance 2080 1300 600 Weight 83 kg 83 kg Intake: Intake, IV Titration 900 800 600 Amount Magnesium Sulfate-D5w Pmx 100 1 gm In Dextrose/Water 1 100ml.bag @ 100 mls/hr IVPB ONCE ONE Rx#: [id number] Sodium Chloride 0.9% 1, 900 650 600 000 ml @ 75 mls/hr IV . [id number] [facility] Rx#:[id number] cefTRIAXone 1,000 mg In 50 Sodium Chloride 0.9% 50 ml @ 100 mls/hr IVPB Q24H [facility] Rx#:[id number] Oral 1180 500 Other: Voiding Method Toilet Toilet Toilet # Voids 3 1 - Exam HEENT head atraumatic normocephalic Eyes clear without exam neck supple without adenopathy jugular venous distention or bruit Neck supple without adenopathy jugular venous distention carotid bruit, no lymphadenopathy Lungs bilateral respiratory extreme wheezing and rhonchi present Heart regular rate and rhythm S1-S2 audible abdominal soft no rebound rigidity extremities +1 pedal pulses neurological examination awake alert no focal neurological deficit - Labs CBC & Chem 7: 10/04/18 09:02 10/04/18 09:02 Labs: Abnormal Lab Results - Last 24 Hours (Table) 10/03/18 10/03/18 10/04/18 Range/Units 11:22 21:13 07:04 WBC (3.8-10.6) k/uL RBC (4.30-5.90) m/uL Hgb (13.0-17.5) gm/dL Hct (39.0-53.0) % Neutrophils # (1.3-7.7) k/uL BUN (9-20) mg/dL Glucose (74-99) mg/dL POC Glucose (mg/dL) 329 H 304 H (75-99) mg/dL Hemoglobin A1c 9.1 H (4.0-6.0) % 10/04/18 10/04/18 10/04/18 Range/Units 09:02 09:02 11:08 WBC 17.4 H (3.8-10.6) k/uL RBC 3.98 L (4.30-5.90) m/uL Hgb 12.0 L (13.0-17.5) gm/dL Hct 36.7 L (39.0-53.0) % Neutrophils # 15.1 H (1.3-7.7) k/uL BUN 21 H (9-20) mg/dL Glucose 266 H (74-99) mg/dL POC Glucose (mg/dL) 229 H (75-99) mg/dL Hemoglobin A1c (4.0-6.0) % 10/04/18 Range/Units 17:04 WBC (3.8-10.6) k/uL RBC (4.30-5.90) m/uL Hgb (13.0-17.5) gm/dL Hct (39.0-53.0) % Neutrophils # (1.3-7.7) k/uL BUN (9-20) mg/dL Glucose (74-99) mg/dL POC Glucose (mg/dL) 297 H (75-99) mg/dL Hemoglobin A1c (4.0-6.0) % Microbiology - Last 24 Hours (Table) 10/02/18 23:40 Blood Culture - Preliminary Blood No Growth after 24 hours Assessment and Plan Assessment: Acute COPD exacerbation Purulent tracheobronchitis Bilateral lower lobe pneumonia Sepsis with a spiking fever tachypnea and tachycardia and leukocytosis Hypomagnesemia Severe COPD emphysema Chronic headaches Plan: Broad-spectrum antibiotics Breathing treatments IV steroids Increase activity as tolerated further evaluation outpatient setting Antibiotics and steroids can be switched to oral 24 hours Neurological workup for chronic headaches Time with Patient: Greater than 30
--- NOTE | 2018-10-04 18:58 | EEG ---
ELECTROENCEPHALOGRAM REPORT DATE OF SERVICE: 10/04/2018 REASON FOR TESTING: Headache and dizziness. DESCRIPTION OF THE PROCEDURE: This EEG was performed using a 21-channel digital electroencephalograph, following international 10-20 system. DESCRIPTION OF THE RECORDING: From the beginning of the tracing, and with the patient's eyes closed, the background rhythm was mostly consisting of 8 Hz alpha frequency in the posterior occipital leads. No obvious asymmetry is seen. Occasional movement artifacts and lead artifacts are seen. Photic stimulation was performed with a minimal driving response seen. No pathological waves were elicited. Hyperventilation was not performed. The patient remains awake throughout the tracing. No epileptiform discharges were seen. His EKG lead showed a regular rate and rhythm. INTERPRETATION: This awake EEG can be considered within normal limits. There was no asymmetry seen. No epileptiform discharges were noticed. The absence of epileptiform discharges does not rule out the diagnosis of epilepsy; therefore clinical correlation is recommended. MMVIPUL / MARALN: [id number] /
[2018-10-04 20:06] LABS: Glucose,Whole Blood 375 mg/dL (75-99)
[2018-10-05] MEDS: HYDROcodone/APAP 10-325MG 1 EACH TAB PO PRN ×4 (00:33→23:48)
[2018-10-05] MEDS: methylPREDNISolone SOD SUCCI 125 MG/2 ML VIAL IV SCH ×2 (00:35→08:00)
[2018-10-05] MEDS: AZITHROMYCIN 500 MG TAB PO SCH ×2 (01:02→22:48)
[2018-10-05] MEDS: METOCLOPRAMIDE 5 MG/ML 2 ML VIAL IVP SCH ×3 (03:42→17:57)
[2018-10-05] MEDS: LEVOTHYROXINE 25 MCG TAB PO SCH (05:55)
[2018-10-05 07:26] LABS: Glucose,Whole Blood 301 mg/dL (75-99)
[2018-10-05] MEDS: INSULIN ASPART 100 UNIT/ML 1 ML 10 ML VIAL SQ SCH ×3 (08:00→17:57)
[2018-10-05] MEDS: ENOXAPARIN 40 MG/0.4 ML SYRINGE SQ SCH (08:00)
[2018-10-05] MEDS: NICOTINE 14MG/24HR PATCH TRANSDERM SCH (08:01)
[2018-10-05] MEDS: guaiFENesin 600 MG TABLET.ER PO SCH ×2 (08:01→22:47)
[2018-10-05] MEDS: metFORMIN 500 MG TAB PO SCH ×2 (08:02→22:47)
[2018-10-05] MEDS: ASPIRIN 81 MG PO SCH (08:02)
[2018-10-05] MEDS: FAMOTIDINE 20 MG TAB PO SCH (08:02)
[2018-10-05] MEDS: DIVALPROEX 250 MG TABLET.DR PO SCH ×3 (08:03→22:50)
[2018-10-05] MEDS: LOSARTAN-HCTZ 50-12.5 MG 1 EACH TAB PO SCH (08:03)
[2018-10-05] MEDS: NAPROXEN 250 MG TAB PO SCH ×2 (08:04→22:48)
[2018-10-05] MEDS: ALBUTEROL NEBULIZED 2.5 MG/3 ML INHALATION SCH ×4 (09:18→20:05)
[2018-10-05 09:32] LABS: Basophils % (A) 0 %; Eosinophils # (A) 0.6 k/uL (0-0.7); Eosinophils % (A) 3 %; HCT 40.1 % (39.0-53.0); HGB 12.8 gm/dL (13.0-17.5); Lymphocytes # (A) 1.4 k/uL (1.0-4.8); Lymphocytes % (A) 7 %; MCH 28.8 pg (25.0-35.0); MCHC 31.9 g/dL (31.0-37.0); MCV 90.2 fL (80.0-100.0); Mean Platelet Volume 7.6; Monocytes # (A) 0.7 k/uL (0-1.0); Monocytes % (A) 3 %; Neutrophils # (A) 17.1 k/uL (1.3-7.7); Neutrophils % (A) 86 %; Platelet Count 305 k/uL (150-450); RBC 4.45 m/uL (4.30-5.90); RDW 13.4 % (11.5-15.5); WBC 19.8 k/uL (3.8-10.6)
[2018-10-05 09:58] LABS: ALT 30 U/L (21-72); AST 32 U/L (17-59); Albumin 4.4 g/dL (3.5-5.0); Alkaline Phosphatase 81 U/L (38-126); Anion Gap 17 mmol/L; Blood Urea Nitrogen 25 mg/dL (9-20); Carbon Dioxide 21 mmol/L (22-30); Chloride 99 mmol/L (98-107); Glucose 314 mg/dL (74-99); Potassium 5.4 mmol/L (3.5-5.1); Sodium 137 mmol/L (137-145); Total Bilirubin 0.5 mg/dL (0.2-1.3); Total Protein 7.4 g/dL (6.3-8.2)
[2018-10-05] MEDS ORDERED: SODIUM POLYSTYRENE SULFONATE 15 GM/60 ML BOTTLE PO STA (10:47)
--- NOTE | 2018-10-05 10:56 | P.PN ---
Subjective Progress Note Date: 10/05/18 This is a 73-year-old male, patient of [facility]. Patient has a known past medical history of COPD, diabetes mellitus type 2, GERD, hypertension , vertebral fractures, nicotine dependence and hypothyroidism. Patient presents to the emergency room with 3 day complaint of nonproductive cough and worsening shortness of breath with no improvement. Chest x-ray showed bilateral lower lobe atelectasis. He did have elevated white count 12.3 temp as high as 102.5 and was tachycardic on admission. Influenza screen was negative. He was started on Rocephin and azithromycin for a possible developing pneumonia. Was given 1 dose of IV Solu-Medrol in the ER. Pulmonary service has been placed on consult. Patient also complaining of a headache. Patient reports that his been dealing with frequent headaches since August. He is followed up with neurology in the outpatient setting he had a computed tomography scan of the brain in August with no acute changes. And he is recently been started on Depakote 3 days ago. Patient is still complaining of a headache. Did have some improvement with the [place]. Patient denies any chest pain, nausea or vomiting, bowel movement changes or urinary symptoms. He did have elevated blood sugar in the 500s likely related to steroids this polyp as well as eating the neighboring patients burrito. Patient is been educated to follow diabetic diet. 10/04/18 patient reports improvement in his shortness of breath. Still having slight cough. He's been afebrile. IV site medical started by neurology in regards to patient's headache. MRI of the brain revealing mild atrophy, moderate periventricular white matter changes. Consider demyelination disease and chronic small vessel ischemic changes. And mild sinusitis. Patient doesn' t port some improvement in his headache with the IV Solu-Medrol. However, patient reports the headache is still persisting. Blood sugars are elevated in the 300s. NovoLog extra 5 units was given. If remains elevated patient will need to be placed on a insulin drip. Patient denies any chest pain. Reports having bowel movements. Denies any burning with urination. On 10/05/2018 patient is currently resting in bed. Patient does report some improvement shortness of breath still has cough. Patient remains afebrile. Patient remains on IV Solu-Medrol for migraine headache. This time patient denies chest pain or shortness of breath. Patient denies nausea vomiting or diarrhea. Patient denies any urinary burning or frequency Objective - Vital Signs Vital signs: Vital Signs Temp 98.1 F 10/05/18 05:00 Pulse 78 10/05/18 09:33 Resp 18 10/05/18 05:00 BP 169/84 10/05/18 05:00 Pulse Ox 91 L 10/05/18 05:00 Intake & Output 10/04/18 10/05/18 10/05/18 18:59 06:59 18:59 Intake Total 600 860 Balance 600 860 Weight 83 kg Intake: Intake, IV Titration 600 860 Amount Sodium Chloride 0.9% 1, 600 760 000 ml @ 75 mls/hr IV . [id number] [facility] Rx#:[id number] cefTRIAXone 1,000 mg In 100 Sodium Chloride 0.9% 50 ml @ 100 mls/hr IVPB Q24H [facility] Rx#:[id number] Other: Voiding Method Toilet Toilet - Exam Head normocephalic Neck supple Lungs a few coarse breath sounds and diminished bilaterally Heart regular rate and rhythm S1-S2, no rub or gallop Abdomen is soft nontender nondistended positive bowel sounds no hepatosplenomegaly Extremities no edema Neuro alert and orientated to 3 - Labs CBC & Chem 7: 10/05/18 08:51 10/05/18 08:51 Labs: Abnormal Lab Results - Last 24 Hours (Table) 10/04/18 10/04/18 10/04/18 Range/Units 11:08 17:04 20:05 WBC (3.8-10.6) k/uL Hgb (13.0-17.5) gm/dL Neutrophils # (1.3-7.7) k/uL Potassium (3.5-5.1) mmol/L Carbon Dioxide (22-30) mmol/L BUN (9-20) mg/dL Glucose (74-99) mg/dL POC Glucose (mg/dL) 229 H 297 H 375 H (75-99) mg/dL 10/05/18 10/05/18 10/05/18 Range/Units 07:21 08:51 08:51 WBC 19.8 H (3.8-10.6) k/uL Hgb 12.8 L (13.0-17.5) gm/dL Neutrophils # 17.1 H (1.3-7.7) k/uL Potassium 5.4 H (3.5-5.1) mmol/L Carbon Dioxide 21 L (22-30) mmol/L BUN 25 H (9-20) mg/dL Glucose 314 H (74-99) mg/dL POC Glucose (mg/dL) 301 H (75-99) mg/dL Microbiology - Last 24 Hours (Table) 10/02/18 23:40 Blood Culture - Preliminary Blood No Growth after 48 hours Assessment and Plan Assessment: 1. Acute COPD exacerbation: Continue nebulizer treatments and prednisone. Patient did receive 1 dose of IV Solu-Medrol in the ER. Per pulmonary services continue breathing treatments and antibiotics 2. Possible developing community-acquired pneumonia: Chest x-ray showing bilateral lower lobe atelectasis. Patient currently on Rocephin and azithromycin. Consult pulmonary service. Add incentive spirometer. Add Mucinex 3. Sepsis present on admission with temporal 102.5, tachycardic and elevated white count 12.3. Influenza screen negative. Likely related to a possible developing pneumonia. Continue antibiotics. Continue IV fluids. Check blood culture. 4. Hypomagnesemia: Improved with supplement. Repeat magnesium 2.1 5. Nicotine dependence: Discussed smoking cessation greater than 3 minutes. add nicotine patch 6. Migraine headaches: Recently started on Depakote about [address] Irvin. Computed tomography scan of the brain completed in August 2018 showing no acute changes. Did reveal chronic small vessel ischemic changes and age-related atrophy. Patient still complaining of headaches. Did have some improvement with the [place]. Patient evaluated by neurology. They have ordered 3 doses of IV Solu-Medrol and IV magnesium. MRI of the brain showing mild atrophy and moderate periventricular white matter changes. Per neurology MRI of brain did show small vessel ischemic disease or demyelinating disease which is in the differential patient started aspirin 81 mg patient also started on Toradol and fioricet. 7. Essential hypertension. Blood pressure stable 8. Hypothyroidism continue Synthroid 9. History of vertebral fractures and chronic back pain 10. Diabetes type 2: resume metformin and add sliding scale. Hyperglycemia secondary to steroids. Patient receiving a dose of NovoLog 5 units. We'll monitor. If blood sugars remain elevated. Patient may require insulin drip. 11. Mild sinusitis. Continue antibiotics 12. Hyperkalemia potassium 5.4. Kayexalate will be ordered recheck from 1300 Consult physical therapy GI prophylaxis Pepcid and DVT prophylaxis Lovenox I performed an examination of the patient and discussed their management with the Nurse Practitioner. I have reviewed the Nurse Practitioner's notes and agree with the documented findings and plan of care
[2018-10-05 11:27] LABS: Glucose,Whole Blood 316 mg/dL (75-99)
--- NOTE | 2018-10-05 17:17 | P.PN ---
Subjective Progress Note Date: 10/05/18 Principal diagnosis: Patient is a pleasant 73-year-old male who is being followed by the neurology service for intractable headache. Patient reports he saw Dr. Irvin on Wednesday and was given Depakote 250 mg 3 times a day. Patient states no improvement in headache with Depakote. Patient became short of breath the following day and came to [facility] for evaluation. Patient does not have any history of migraine headaches. Patient had MRI of the brain done which showed mild atrophy. MRI of the brain also showed white matter changes. No acute finding. Patient has been receiving IV Solu-Medrol, Reglan and had a one-time dose of magnesium. Patient states this did help his headache. He reports his headache is back at this time. His blood pressure has been elevated which may be contributing to his headache. At the time of my evaluation, patient's resting comfortably in bed and appears to be in no acute distress. 10/05/2018 Patient is a 73-year-old male who is being followed by the neurology service for intractable headache. Patient reports headaches started around the beginning of August. Patient saw Dr. Irvin was put on Depakote 250 mg 3 times a day with little relief of headache. Patient is getting IV steroids along with when necessary Toradol and Fioricet. Patient reports slight improvement in headache. MRI of the brain showed no acute abnormality. EEG was normal. At the time of my evaluation, patient's resting comfortably in bed and appears to be in no acute distress. Objective - Vital Signs Vital signs: Vital Signs Temp 97.8 F 10/05/18 13:00 Pulse 82 10/05/18 15:53 Resp 18 10/05/18 13:00 BP 130/68 10/05/18 13:00 Pulse Ox 96 10/05/18 13:00 Intake & Output 10/04/18 10/05/18 10/05/18 18:59 06:59 18:59 Intake Total 937 452 2194 Balance 492 359 9960 Weight 83 kg Intake: Intake, IV Titration 600 860 600 Amount Sodium Chloride 0.9% 1, 600 760 600 000 ml @ 75 mls/hr IV . [id number] [facility] Rx#:[id number] cefTRIAXone 1,000 mg In 100 Sodium Chloride 0.9% 50 ml @ 100 mls/hr IVPB Q24H [facility] Rx#:[id number] Oral 620 Other: Voiding Method Toilet Toilet Toilet # Voids 5 - Exam PHYSICAL EXAM: GENERAL APPEARANCE: Patient is a well-developed, male who appears to be in no acute distress. HEENT: Normocephalic, atraumatic, no facial asymmetry is seen. Neck is supple with no masses felt. CARDIOVASCULAR: Regular rate and rhythm. ABDOMEN: Nontender, nondistended. EXTREMITIES: Show no edema or clubbing. NEUROLOGICAL EXAM: Patient is awake, alert, and oriented 3. Speech and language are normal. Strength is full in all 4 extremities. Sensory deficit noted to bilateral distal lower extremities. No facial asymmetry is seen on cranial nerve testing. No tremors or seizure-like activity noted. - Labs CBC & Chem 7: 10/05/18 08:51 10/05/18 13:57 Labs: Abnormal Lab Results - Last 24 Hours (Table) 10/04/18 10/05/18 10/05/18 Range/Units 20:05 07:21 08:51 WBC 19.8 H (3.8-10.6) k/uL Hgb 12.8 L (13.0-17.5) gm/dL Neutrophils # 17.1 H (1.3-7.7) k/uL Potassium (3.5-5.1) mmol/L Carbon Dioxide (22-30) mmol/L BUN (9-20) mg/dL Glucose (74-99) mg/dL POC Glucose (mg/dL) 375 H 301 H (75-99) mg/dL 10/05/18 10/05/18 Range/Units 08:51 11:25 WBC (3.8-10.6) k/uL Hgb (13.0-17.5) gm/dL Neutrophils # (1.3-7.7) k/uL Potassium 5.4 H (3.5-5.1) mmol/L Carbon Dioxide 21 L (22-30) mmol/L BUN 25 H (9-20) mg/dL Glucose 314 H (74-99) mg/dL POC Glucose (mg/dL) 316 H (75-99) mg/dL Microbiology - Last 24 Hours (Table) 10/02/18 23:40 Blood Culture - Preliminary Blood No Growth after 48 hours Assessment and Plan Plan: Impression: 1. Intractable headache 2. Pneumonia 3. Chronic low back pain 4. Lower extremity sensory deficit 5. Diabetes Recommendation: The patient continues to complain of headache which he describes as a pressure in his head. Patient states headache is mostly in the frontal area. Patient states headaches are new for him. This started in August. As mentioned above, MRI of the brain with and without contrast showed no acute abnormality. MRI of the brain did show small vessel ischemic disease or demyelinating disease which is in the differential. I recommend starting aspirin 81 mg for chronic small vessel ischemic disease as this is more likely in a patient this age. EEG was normal. As for his ongoing headache , he may continue Toradol 15 mg IV every 8 hours when necessary and Fioricet every 8 hours when necessary. If headaches persist, a sphenopalatine block can be performed in the office. No focal neurological deficit noted. As for his sensory deficit and low back pain, further workup can be performed in the outpatient clinic. Continue current medical management. I will continue to follow with you. Further recommendations to follow. I performed an examination of the patient and discussed the management with the CHOKER SETTER. I have reviewed the CHOKER SETTER notes and agree with the findings and plan of care.
[2018-10-05 17:28] LABS: Glucose,Whole Blood 413 mg/dL (75-99)
[2018-10-05] MEDS: KETOROLAC 30 MG/ML 1 ML VIAL IVP PRN (17:55)
[2018-10-05] MEDS ORDERED: INSULIN ASPART 100 UNIT/ML 1 ML 10 ML VIAL SQ ONE (18:57)
[2018-10-05 19:30] LABS: Glucose,Whole Blood 456 mg/dL (75-99)
[2018-10-05 20:06] LABS: Glucose,Whole Blood 551 mg/dL (75-99)
[2018-10-05] MEDS ORDERED: INSULIN REGULAR BOLUS (FROM DRIP BAG) IV ONE (20:34)
[2018-10-05] MEDS ORDERED: INSULIN REGULAR 100 UNIT in SODIUM CHLORIDE 0.9% 100 ML IV SCH (20:45)
[2018-10-05 22:08] LABS: Glucose,Whole Blood 245 mg/dL (75-99)
[2018-10-05 23:59] LABS: Glucose,Whole Blood 82 mg/dL (75-99)
--- NOTE | 2018-10-06 00:21 | P.PN ---
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, hypertension hypertensive cardiovascular disease, chronic migrainous headaches 10/05/2018, patient seen eval examined during the rounds clinically patient has been doing slightly better in terms of breathing but is still of ongoing cough congestion shortness of breath, neurology is evaluating patient for migraine headache, patient has been gently rehydrated also getting IV steroids for COPD exacerbation 10/04/2018, patient seen eval examined during the rounds cuff congestion shortness breath is improved respiratory status slightly better with still get short of breath and activity and exertion patient is still continue to complain of headaches intermittently neurology is evaluating this patient on is for EEG later on today 73-year-old male who has end-stage lung disease is severe COPD emphysema with complex past medical history associated with type 2 diabetes mellitus GERD hypertension a potential cardiovascular disease and disease The second to severe COPD emphysema patient has been long-term smoker he has not been feeling well for the last 3 or 4 days increased cuff congestion shortness of breath he was started on Rocephin for Zithromax with some relief and improvement but still get short of breath, patient has intermittent headaches as well neurology has been following, on specific questioning denies any seizure-like to a loss of consciousness hemiparesis, denies any chest pain or radiation of pain dye and dry as any bowel or bladder dysfunction Objective - Vital Signs Vital signs: Vital Signs Temp 96.9 F L 10/05/18 20:17 Pulse 97 10/05/18 20:17 Resp 16 10/05/18 20:17 BP 156/76 10/05/18 20:17 Pulse Ox 93 L 10/05/18 20:17 Intake & Output 10/05/18 10/05/18 10/06/18 06:59 18:59 06:59 Intake Total 860 1220 35.939 Balance 860 1220 35.939 Intake: Intake, IV Titration 860 600 35.939 Amount Insulin Regular 100 unit 35.939 In Sodium Chloride 0.9% 100 ml @ Titrate IV .Q0M [facility] Rx#:[id number] Sodium Chloride 0.9% 1, 760 600 000 ml @ 75 mls/hr IV . [id number] [facility] Rx#:[id number] cefTRIAXone 1,000 mg In 100 Sodium Chloride 0.9% 50 ml @ 100 mls/hr IVPB Q24H [facility] Rx#:[id number] Oral 620 Other: Voiding Method Toilet Toilet # Voids 5 - Exam HEENT head atraumatic normocephalic Eyes clear without exam neck supple without adenopathy jugular venous distention or bruit Neck supple without adenopathy jugular venous distention carotid bruit, no lymphadenopathy Lungs bilateral respiratory extreme wheezing and rhonchi present Heart regular rate and rhythm S1-S2 audible abdominal soft no rebound rigidity extremities +1 pedal pulses neurological examination awake alert no focal neurological deficit - Labs CBC & Chem 7: 10/05/18 08:51 10/05/18 13:57 Labs: Abnormal Lab Results - Last 24 Hours (Table) 10/05/18 10/05/18 10/05/18 Range/Units 07:21 08:51 08:51 WBC 19.8 H (3.8-10.6) k/uL Hgb 12.8 L (13.0-17.5) gm/dL Neutrophils # 17.1 H (1.3-7.7) k/uL Potassium 5.4 H (3.5-5.1) mmol/L Carbon Dioxide 21 L (22-30) mmol/L BUN 25 H (9-20) mg/dL Glucose 314 H (74-99) mg/dL POC Glucose (mg/dL) 301 H (75-99) mg/dL 10/05/18 10/05/18 10/05/18 Range/Units 11:25 17:26 19:28 WBC (3.8-10.6) k/uL Hgb (13.0-17.5) gm/dL Neutrophils # (1.3-7.7) k/uL Potassium (3.5-5.1) mmol/L Carbon Dioxide (22-30) mmol/L BUN (9-20) mg/dL Glucose (74-99) mg/dL POC Glucose (mg/dL) 316 H 413 H 456 H (75-99) mg/dL 10/05/18 10/05/18 Range/Units 20:04 22:07 WBC (3.8-10.6) k/uL Hgb (13.0-17.5) gm/dL Neutrophils # (1.3-7.7) k/uL Potassium (3.5-5.1) mmol/L Carbon Dioxide (22-30) mmol/L BUN (9-20) mg/dL Glucose (74-99) mg/dL POC Glucose (mg/dL) 551 H 245 H (75-99) mg/dL Microbiology - Last 24 Hours (Table) 10/02/18 23:40 Blood Culture - Preliminary Blood No Growth after 48 hours Assessment and Plan Assessment: Acute COPD exacerbation Purulent tracheobronchitis Bilateral lower lobe pneumonia Sepsis with a spiking fever tachypnea and tachycardia and leukocytosis Hypomagnesemia Severe COPD emphysema Chronic headaches Plan: Broad-spectrum antibiotics Breathing treatments IV steroids Increase activity as tolerated further evaluation outpatient setting Antibiotics and steroids can be switched to oral Once clinically improved in next 24-48 hours Neurological workup for chronic headaches Time with Patient: Greater than 30
[2018-10-06 00:59] LABS: Glucose,Whole Blood 102 mg/dL (75-99)
[2018-10-06 02:07] LABS: Glucose,Whole Blood 165 mg/dL (75-99)
[2018-10-06] MEDS: METOCLOPRAMIDE 5 MG/ML 2 ML VIAL IVP SCH ×2 (02:54→08:20)
[2018-10-06 04:22] VITALS: BP 138/83; RESP 16; TEMP 98
[2018-10-06 04:29] LABS: Glucose,Whole Blood 133 mg/dL (75-99)
[2018-10-06 05:59] LABS: Glucose,Whole Blood 136 mg/dL (75-99)
[2018-10-06] MEDS: LEVOTHYROXINE 25 MCG TAB PO SCH (06:22)
[2018-10-06] MEDS: ALBUTEROL NEBULIZED 2.5 MG/3 ML INHALATION SCH ×2 (07:13→11:32)
[2018-10-06] MEDS ORDERED: INSULIN ASPART 100 UNIT/ML 1 ML 10 ML VIAL SQ SCH (07:30)
[2018-10-06] MEDS: SODIUM CHLORIDE 0.9% 1,000 ML IV SCH ×2 (08:11→08:20)
[2018-10-06] MEDS: metFORMIN 500 MG TAB PO SCH (08:14)
[2018-10-06] MEDS: LOSARTAN-HCTZ 50-12.5 MG 1 EACH TAB PO SCH (08:14)
[2018-10-06] MEDS: DIVALPROEX 250 MG TABLET.DR PO SCH (08:14)
[2018-10-06] MEDS: ASPIRIN 81 MG PO SCH (08:14)
[2018-10-06] MEDS: NAPROXEN 250 MG TAB PO SCH (08:14)
[2018-10-06] MEDS: guaiFENesin 600 MG TABLET.ER PO SCH (08:15)
[2018-10-06] MEDS: NICOTINE 14MG/24HR PATCH TRANSDERM SCH (08:16)
[2018-10-06] MEDS: ENOXAPARIN 40 MG/0.4 ML SYRINGE SQ SCH (08:16)
[2018-10-06] MEDS: FAMOTIDINE 20 MG TAB PO SCH (08:16)
[2018-10-06] MEDS: HYDROcodone/APAP 10-325MG 1 EACH TAB PO PRN (08:32)
[2018-10-06 08:37] LABS: Glucose,Whole Blood 231 mg/dL (75-99)
[2018-10-06 08:59] LABS: ALT 31 U/L (21-72); AST 23 U/L (17-59); Alkaline Phosphatase 65 U/L (38-126); Anion Gap 11 mmol/L; Basophils % (A) 0 %; Blood Urea Nitrogen 31 mg/dL (9-20); Calcium 9.7 mg/dL (8.4-10.2); Carbon Dioxide 28 mmol/L (22-30); Chloride 100 mmol/L (98-107); Eosinophils # (A) 0.1 k/uL (0-0.7); Eosinophils % (A) 0 %; Glucose 107 mg/dL (74-99); HCT 39.6 % (39.0-53.0); HGB 12.9 gm/dL (13.0-17.5); Lymphocytes # (A) 2.6 k/uL (1.0-4.8); Lymphocytes % (A) 16 %; MCH 29.1 pg (25.0-35.0); MCHC 32.6 g/dL (31.0-37.0); MCV 89.4 fL (80.0-100.0); Mean Platelet Volume 8.3; Monocytes # (A) 1.3 k/uL (0-1.0); Monocytes % (A) 8 %; Neutrophils # (A) 11.9 k/uL (1.3-7.7); Neutrophils % (A) 74 %; Platelet Count 277 k/uL (150-450); Potassium 4.2 mmol/L (3.5-5.1); RBC 4.43 m/uL (4.30-5.90); RDW 13.5 % (11.5-15.5); Sodium 139 mmol/L (137-145); Total Bilirubin 0.4 mg/dL (0.2-1.3); WBC 16.1 k/uL (3.8-10.6)
[2018-10-06] MEDS ORDERED: predniSONE 20 MG TAB PO SCH (09:00)
[2018-10-06 09:59] LABS: Glucose,Whole Blood 165 mg/dL (75-99)
[2018-10-06 11:35] VITALS: PULSE 80
[2018-10-06 12:13] LABS: Glucose,Whole Blood 91 mg/dL (75-99)
--- NOTE | 2018-10-06 12:55 | P.DS ---
Providers Date of admission: 10/03/18 01:21 Expected date of discharge: 10/06/18 Attending physician: Anastacia Tejeda Consults: 10/03/18 01:21 Consult Physician Routine Consulting Provider: Bakari Herbert Consult Reason/Comments: COPD exacerbation Do you want consulting provider notified?: Yes, Notify in am 10/03/18 12:24 Consult Physician Routine Consulting Provider: Johnny Ferrer Consult Reason/Comments: migraines Do you want consulting provider notified?: Already Contacted Primary care physician: Nadia Fox [place] [facility] Course: Discharge diagnosis 1. Acute COPD exacerbation: Continue nebulizer treatments and prednisone. Patient did receive 1 dose of IV Solu-Medrol in the ER. Discussed case with Dr. Herebrt per pulmonary service. Patient has been cleared for discharge from pulmonary standpoint. Patient will be DC'd home on prednisone taper along with azithromycin for 5 more days patient to follow-up closely with PCP in consulting providers including refueler 2. Possible developing community-acquired pneumonia: Chest x-ray showing bilateral lower lobe atelectasis. Patient has been cleared for discharge from pulmonary standpoint. Patient will be DC'd home on prednisone taper and azithromycin. 3. Sepsis present on admission with temporal 102.5, tachycardic and elevated white count 12.3. Influenza screen negative. Likely related to a possible developing pneumonia. Continue antibiotics. Continue IV fluids. Culture currently showing no growth. Patient has been afebrile. Patient will be DC'd home on azithromycin antibiotic. Patient has been cleared for discharge from pulmonary standpoint 4. Hypomagnesemia: Improved with supplement. Repeat magnesium 2.1 5. Nicotine dependence: Discussed smoking cessation greater than 3 minutes. add nicotine patch. 13 patch will be ordered upon discharge 6. Migraine headaches: Recently started on Depakote about [address] Irvin. Computed tomography scan of the brain completed in August 2018 showing no acute changes. Did reveal chronic small vessel ischemic changes and age-related atrophy. Patient still complaining of headaches. Did have some improvement with the T[place]. Patient evaluated by neurology. They have ordered 3 doses of IV Solu-Medrol and IV magnesium. MRI of the brain showing mild atrophy and moderate periventricular white matter changes. Per neurology MRI of brain did show small vessel ischemic disease or demyelinating disease which is in the differential patient started aspirin 81 mg patient also started on Toradol and fioricet. Migraine headaches have resolved. Per neurology services if headaches persist a sphenopalatine block and be performed in the outpatient setting. Patient to follow-up outpatient for neurology services. 7. Essential hypertension. Blood pressure stable 8. Hypothyroidism continue Synthroid 9. History of vertebral fractures and chronic back pain 10. Diabetes type 2: resume metformin and add sliding scale. Hyperglycemia secondary to steroids. Patient receiving a dose of NovoLog 5 units. Patient is blood sugar remained high. Patient was started on insulin drip overnight. Blood sugars have significantly improved. Patient currently is off IV steroids. Patient will be DC'd home on home metformin dose along with glipizide 5 mg before meals. Patient educated to hold dose if meal is skipped. Patient will also be given a paper prescription for glucometer patient to follow-up closely with primary care provider for further management of his diabetes. 11. Mild sinusitis. Continue antibiotics. Patient to be DC'd on 5 more days of azithromycin 12. Hyperkalemia potassium 5.4. Kayexalate will be ordered. Resolved repeat potassium 4.2 Hospital course This is a 73-year-old male, patient of [facility]. Patient has a known past medical history of COPD, diabetes mellitus type 2, GERD, hypertension , vertebral fractures, nicotine dependence and hypothyroidism. Patient presents to the emergency room with 3 day complaint of nonproductive cough and worsening shortness of breath with no improvement. Chest x-ray showed bilateral lower lobe atelectasis. He did have elevated white count 12.3 temp as high as 102.5 and was tachycardic on admission. Influenza screen was negative. He was started on Rocephin and azithromycin for a possible developing pneumonia. Was given 1 dose of IV Solu-Medrol in the ER. Pulmonary service has been placed on consult. Patient also complaining of a headache. Patient reports that his been dealing with frequent headaches since August. He is followed up with neurology in the outpatient setting he had a computed tomography scan of the brain in August with no acute changes. And he is recently been started on Depakote 3 days ago. Patient is still complaining of a headache. Did have some improvement with the Tilton. Patient denies any chest pain, nausea or vomiting, bowel movement changes or urinary symptoms. He did have elevated blood sugar in the 500s likely related to steroids this polyp as well as eating the neighboring patients lashay. Patient is been educated to follow diabetic diet. 10/04/18 patient reports improvement in his shortness of breath. Still having slight cough. He's been afebrile. IV site medical started by neurology in regards to patient's headache. MRI of the brain revealing mild atrophy, moderate periventricular white matter changes. Consider demyelination disease and chronic small vessel ischemic changes. And mild sinusitis. Patient doesn' t port some improvement in his headache with the IV Solu-Medrol. However, patient reports the headache is still persisting. Blood sugars are elevated in the 300s. NovoLog extra 5 units was given. If remains elevated patient will need to be placed on a insulin drip. Patient denies any chest pain. Reports having bowel movements. Denies any burning with urination. On 10/05/2018 patient is currently resting in bed. Patient does report some improvement shortness of breath still has cough. Patient remains afebrile. Patient remains on IV Solu-Medrol for migraine headache. This time patient denies chest pain or shortness of breath. Patient denies nausea vomiting or diarrhea. Patient denies any urinary burning or frequency On 10/06/2018 patient is currently sitting up in chair. Patient states he is very eager to go home. Patient states that he feels much improved. Headaches have completely subsided. Patient is currently on insulin drip due to elevated blood sugars. IV Solu-Medrol has been discontinued. Patient will be resumed on home metformin dose along with glipizide 500s before meals patient educated to hold dose if meal is skipped. Patient will also begin ordered for glucometer to monitor blood sugars at home. Patient to follow-up closely with early next week to follow-up with ongoing issues. At this time patient denies chest pain or shortness of breath. Patient denies nausea vomiting or diarrhea. Patient denies any urinary burning or frequency. Pulmonary services have cleared patient for discharge. Patient to follow-up outpatient with pulmonology and neurology services. Patient will be DC'd home on prednisone taper along with azithromycin antibiotic. I performed an examination of the patient and discussed their management with the Nurse Practitioner. I have reviewed the Nurse Practitioner's notes and agree with the documented findings and plan of care Patient Condition at Discharge: Stable Plan - Discharge Summary New Discharge Prescriptions: New Azithromycin [Zithromax] 500 mg PO Q24H 5 Days #5 tab Nicotine 14Mg/24Hr Patch [Habitrol] 1 patch TRANSDERM DAILY #30 patch predniSONE 10 mg PO DIRECTED #30 tab glipiZIDE [Glucotrol] 5 mg PO AC-TID #90 tab Continue metFORMIN HCL 1,000 mg PO BID Levothyroxine Sodium [Synthroid] 25 mcg PO DAILY #30 tab HYDROcodone/APAP 10-325MG [Tilton 10-325] 1 tab PO TID PRN PRN Reason: Pain hydrOXYzine HCL [Atarax] 25 mg PO QID PRN PRN Reason: Itching Naproxen 500 mg PO BID Losartan/Hydrochlorothiazide [Losartan-Hctz 100-25 mg Tab] 1 tab PO DAILY Divalproex [Depakote] 250 mg PO BID Discharge Medication List metFORMIN HCL 1,000 mg PO BID 09/16/16 [History] Levothyroxine Sodium [Synthroid] 25 mcg PO DAILY #30 tab 01/01/18 [Rx] HYDROcodone/APAP 10-325MG [Tilton 10-325] 1 tab PO TID PRN 03/08/18 [History] Losartan/Hydrochlorothiazide [Losartan-Hctz 100-25 mg Tab] 1 tab PO DAILY [History] Naproxen 500 mg PO BID 09/12/18 [History] hydrOXYzine HCL [Atarax] 25 mg PO QID PRN 09/12/18 [History] Divalproex [Depakote] 250 mg PO BID 10/03/18 [History] Azithromycin [Zithromax] 500 mg PO Q24H 5 Days #5 tab 10/06/18 [Rx] Nicotine 14Mg/24Hr Patch [Habitrol] 1 patch TRANSDERM DAILY #30 patch 10/06/18 [ Rx] glipiZIDE [Glucotrol] 5 mg PO AC-TID #90 tab 10/06/18 [Rx] predniSONE 10 mg PO DIRECTED #30 tab 10/06/18 [Rx] Follow up Appointment(s)/Referral(s): Johnny Ferrer MD [STAFF PHYSICIAN] - 2 Weeks Nadia Fox DO [Primary Care Provider] - 10/10/18 2:30 pm Activity/Diet/Wound Care/Special Instructions: Activity as tolerated Diet heart healthy Patient to follow-up with Ruddy motley on 10/10/2018 for close monitoring of blood sugar Patient to resume home metformin along with new prescription for glipizide 5 mg before meals. Patient to not take dose if meal is skipped Glucometer prescription given to patient Discharge Disposition: HOME SELF-CARE
--- NOTE | 2018-10-06 14:13 | P.PN ---
Subjective Progress Note Date: 10/06/18 Principal diagnosis: Bilateral pneumonia, acute COPD exacerbation, end-stage lung disease in his severe COPD emphysema, hypertension hypertensive cardiovascular disease, chronic migrainous headaches 10/06/2018, patient seen eval examined during rounds clinically patient has been doing slightly better but is still short of breath still of ongoing cough congestion but severity has improved her IV steroids being switched to oral care plan discussed with the primary service likely will be discharged home later on today, patient has been emphasized about outpatient follow-up 10/05/2018, patient seen eval examined during the rounds clinically patient has been doing slightly better in terms of breathing but is still of ongoing cough congestion shortness of breath, neurology is evaluating patient for migraine headache, patient has been gently rehydrated also getting IV steroids for COPD exacerbation 10/04/2018, patient seen eval examined during the rounds cuff congestion shortness breath is improved respiratory status slightly better with still get short of breath and activity and exertion patient is still continue to complain of headaches intermittently neurology is evaluating this patient on is for EEG later on today 73-year-old male who has end-stage lung disease is severe COPD emphysema with complex past medical history associated with type 2 diabetes mellitus GERD hypertension a potential cardiovascular disease and disease The second to severe COPD emphysema patient has been long-term smoker he has not been feeling well for the last 3 or 4 days increased cuff congestion shortness of breath he was started on Rocephin for Zithromax with some relief and improvement but still get short of breath, patient has intermittent headaches as well neurology has been following, on specific questioning denies any seizure-like to a loss of consciousness hemiparesis, denies any chest pain or radiation of pain dye and dry as any bowel or bladder dysfunction Objective - Vital Signs Vital signs: Vital Signs Temp 98.0 F 10/06/18 04:22 Pulse 80 10/06/18 11:43 Resp 16 10/06/18 08:00 BP 138/83 10/06/18 04:22 Pulse Ox 93 L 10/06/18 04:22 Intake & Output 10/05/18 10/06/18 10/06/18 18:59 06:59 18:59 Intake Total 1220 896.220 9313.985 Balance 1220 735.431 7076.985 Weight 83 kg Intake: Intake, IV Titration 600 691.518 612.985 Amount Insulin Regular 100 unit 41.518 12.985 In Sodium Chloride 0.9% 100 ml @ Titrate IV .Q0M TERRI Rx#:[id number] Sodium Chloride 0.9% 1, 600 600 600 000 ml @ 75 mls/hr IV . [id number] TERRI Rx#:[id number] cefTRIAXone 1,000 mg In 50 Sodium Chloride 0.9% 50 ml @ 100 mls/hr IVPB Q24H TERRI Rx#:[id number] Oral 620 1200 Other: Voiding Method Toilet Toilet Toilet # Voids 5 3 4 - Exam HEENT head atraumatic normocephalic Eyes clear without exam neck supple without adenopathy jugular venous distention or bruit Neck supple without adenopathy jugular venous distention carotid bruit, no lymphadenopathy Lungs bilateral respiratory extreme wheezing and rhonchi present Heart regular rate and rhythm S1-S2 audible abdominal soft no rebound rigidity extremities +1 pedal pulses neurological examination awake alert no focal neurological deficit - Labs CBC & Chem 7: 10/06/18 07:30 10/06/18 07:30 Labs: Abnormal Lab Results - Last 24 Hours (Table) 10/05/18 10/05/18 10/05/18 Range/Units 17:26 19:28 20:04 WBC (3.8-10.6) k/uL Hgb (13.0-17.5) gm/dL Neutrophils # (1.3-7.7) k/uL Monocytes # (0-1.0) k/uL BUN (9-20) mg/dL Glucose (74-99) mg/dL POC Glucose (mg/dL) 413 H 456 H 551 H (75-99) mg/dL 10/05/18 10/06/18 10/06/18 Range/Units 22:07 00:57 01:59 WBC (3.8-10.6) k/uL Hgb (13.0-17.5) gm/dL Neutrophils # (1.3-7.7) k/uL Monocytes # (0-1.0) k/uL BUN (9-20) mg/dL Glucose (74-99) mg/dL POC Glucose (mg/dL) 245 H 102 H 165 H (75-99) mg/dL 10/06/18 10/06/18 10/06/18 Range/Units 04:17 05:57 07:30 WBC 16.1 H (3.8-10.6) k/uL Hgb 12.9 L (13.0-17.5) gm/dL Neutrophils # 11.9 H (1.3-7.7) k/uL Monocytes # 1.3 H (0-1.0) k/uL BUN (9-20) mg/dL Glucose (74-99) mg/dL POC Glucose (mg/dL) 133 H 136 H (75-99) mg/dL 10/06/18 10/06/18 10/06/18 Range/Units 07:30 08:24 09:58 WBC (3.8-10.6) k/uL Hgb (13.0-17.5) gm/dL Neutrophils # (1.3-7.7) k/uL Monocytes # (0-1.0) k/uL BUN 31 H (9-20) mg/dL Glucose 107 H (74-99) mg/dL POC Glucose (mg/dL) 231 H 165 H (75-99) mg/dL Microbiology - Last 24 Hours (Table) 10/02/18 23:40 Blood Culture - Preliminary Blood No Growth after 72 hours Assessment and Plan Assessment: Acute COPD exacerbation Purulent tracheobronchitis Bilateral lower lobe pneumonia Sepsis with a spiking fever tachypnea and tachycardia and leukocytosis Hypomagnesemia Severe COPD emphysema Chronic headaches Plan: Broad-spectrum antibiotics Breathing treatments Increase activity as tolerated further evaluation outpatient setting Antibiotics and steroids can be switched to oral Agree with discharge planning follow-up in outpatient setting Neurological workup for chronic headaches Time with Patient: Greater than 30
== END 2018-10-06 14:26 | disposition home or self-care (01) | DRG 871 ==
LOC: EC 23:25 → 3NMEDONC 10-03 01:21
PROVIDERS: ADMIT Internal Medicine; ATTEND Internal Medicine
DX: A41.9 Sepsis, unspecified organism (principal); J18.9 Pneumonia, unspecified organism; J98.11 Atelectasis; E11.65 Type 2 diabetes mellitus with hyperglycemia; E11.42 Type 2 diabetes mellitus with diabetic polyneuropathy; E87.5 Hyperkalemia; J43.9 Emphysema, unspecified; E83.42 Hypomagnesemia; I11.9 Hypertensive heart disease without heart failure; I44.4 Left anterior fascicular block; J20.9 Acute bronchitis, unspecified; T38.0X5A Adverse effect of glucocorticoids and synthetic analogues, initial encounter; J32.9 Chronic sinusitis, unspecified; R09.02 Hypoxemia; G43.909 Migraine, unspecified, not intractable, without status migrainosus; E03.9 Hypothyroidism, unspecified; I25.10 Atherosclerotic heart disease of native coronary artery without angina pectoris; G89.29 Other chronic pain; M54.5 Low back pain; K21.9 Gastro-esophageal reflux disease without esophagitis; M25.512 Pain in left shoulder; M25.511 Pain in right shoulder; F17.210 Nicotine dependence, cigarettes, uncomplicated; Z71.6 Tobacco abuse counseling; Z79.84 Long term (current) use of oral hypoglycemic drugs; Z79.890 Hormone replacement therapy; Z79.899 Other long term (current) drug therapy; Z86.718 Personal history of other venous thrombosis and embolism; Z87.19 Personal history of other diseases of the digestive system; Z90.49 Acquired absence of other specified parts of digestive tract; Z87.81 Personal history of (healed) traumatic fracture; Z86.010 Personal history of colon polyps; Z83.3 Family history of diabetes mellitus; Z81.1 Family history of alcohol abuse and dependence
CPT/HCPCS: 36415; 70553; 71046; 80053; 81003; 82550; 82553; 83036; 83605; 83735; 83880; 84132; 84484; 85025; 85610; 85730; 87040; 87502; 93005; 94640; 95816; 96361; 96365; 96368; 99285

== ENCOUNTER 2018-11-08 10:10 | Emergency (ER) | payer MEDICARE ==
[2018-11-08 10:15] VITALS: RESP 18; TEMP 97.6
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
--- NOTE | 2018-11-08 11:04 | XR ---
EXAMINATION TYPE: XR chest 2V DATE OF EXAM: 11/08/2018 COMPARISON: 10/03/2018 HISTORY: Neck pain and chest pain TECHNIQUE: Frontal and lateral views of the chest are obtained. FINDINGS: Chronic bibasilar platelike subsegmental atelectasis is seen. Pulmonary hyperinflation sug gests underlying COPD with flattening of the right hemidiaphragm. Slight left hemidiaphragm elevation is chronic. Surgical sutures are noted at the medial right lung apex. Cardia mediastinal silhouette is mildly enlarged. No new focal consolidation, pleural effusion or pneumothorax is seen. There is mi ld diffuse osseous demineralization and mild multilevel degenerative change of the thoracic spine. IMPRESSION: Chronic findings of left hemidiaphragm elevation, bibasilar atelectasis, underlying COPD and postsurgical change of the right lung apex. No acute cardiopulmonary process.
--- NOTE | 2018-11-08 11:06 | XR ---
EXAMINATION TYPE: XR soft tissue neck DATE OF EXAM: 11/08/2018 COMPARISON: NONE HISTORY: Neck pain TECHNIQUE: Frontal and lateral views of the soft tissues of the neck were obtained FINDINGS: Nasopharynx and oropharynx appear patent. The C2-C5 vertebral bodies appear aligned. The pa tient's shoulders obscure the lower cervical spine. Mild multilevel degenerative changes are seen. No radiopaque foreign body. Incidentally noted left carotid calcifications are present. Surgical suture s at the right lung apex are partially visualized medially as well as dentures. IMPRESSION: Unremarkable radiograph of the soft tissues the neck.
[2018-11-08] MEDS ORDERED: IBUPROFEN 600 MG TAB PO STA (11:16)
[2018-11-08 12:37] VITALS: BP 144/76; PULSE 79
== END 2018-11-08 12:30 | disposition home or self-care (01) ==
LOC: EC 10:10
DX: J02.9 Acute pharyngitis, unspecified (principal); J44.9 Chronic obstructive pulmonary disease, unspecified; E11.9 Type 2 diabetes mellitus without complications; I10 Essential (primary) hypertension; E03.9 Hypothyroidism, unspecified; F17.200 Nicotine dependence, unspecified, uncomplicated; Z79.84 Long term (current) use of oral hypoglycemic drugs; Z79.890 Hormone replacement therapy; Z79.899 Other long term (current) drug therapy
CPT/HCPCS: 70360; 71046; 87081; 87430; 99284

== ENCOUNTER 2019-05-14 20:32 | Emergency (ER) | payer MEDICARE ==
[2019-05-14 20:50] VITALS: BP 102/57; PULSE 91; RESP 17; TEMP 98.6
[2019-05-14] MEDS ORDERED: DIPH,PERTUS(ACELL)TETVAC-LF 0.5 ML VIAL IM ONE (20:54)
[2019-05-14] MEDS ORDERED: ACETAMINOPHEN TAB 500 MG TAB PO STA (20:57)
[2019-05-14] MEDS ORDERED: IBUPROFEN 800 MG TAB PO STA (20:57)
[2019-05-14] MEDS ORDERED: LIDOCAINE 1% INJ 10MG/ML (20 ML MDV) SQ ONE (21:13)
[2019-05-14] MEDS ORDERED: KETOROLAC 30 MG/ML 1 ML VIAL IM STA (21:14)
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
== END 2019-05-14 21:52 | disposition home or self-care (01) ==
LOC: EC 20:32
DX: S60.450A Superficial foreign body of right index finger, initial encounter (principal); E11.9 Type 2 diabetes mellitus without complications; I10 Essential (primary) hypertension; E03.9 Hypothyroidism, unspecified; F17.200 Nicotine dependence, unspecified, uncomplicated; Z23 Encounter for immunization; Z79.84 Long term (current) use of oral hypoglycemic drugs; Z79.890 Hormone replacement therapy; Z79.899 Other long term (current) drug therapy; W45.8XXA Other foreign body or object entering through skin, initial encounter
CPT/HCPCS: 90715; 99283; 10120; 90471; 96372; J2001; J1885

== ENCOUNTER → 2019-05-30 | Outpatient (CLI) | payer MEDICARE ==
--- NOTE | 2019-05-30 09:07 | MR ---
EXAMINATION TYPE: MR lumbar spine wo con DATE OF EXAM: 05/30/2019 COMPARISON: MRI 08/20/2003 HISTORY: Low back pain TECHNIQUE: T1 and T2 axial and sagittal images of the lumbar spine are submitted. FINDINGS: There is no abnormal signal seen within the visualized spinal cord or paraspinal soft tissu es. There is multilevel degenerative mild disc disease with hypertrophic spurring noted anteriorly at multiple levels. Aorta measures 2.7 cm in maximum dimension At T12-L1 there is no disc herniation or canal stenosis. No foraminal encroachment. At L1-2 there is no disc herniation or canal stenosis. No foraminal encroachment. Mild facet arthropa thy. At L2-3 there is no disc herniation or canal stenosis. No foraminal encroachment. Mild facet arthropa thy. At L3-4 there is moderate facet arthropathy. No disc herniation. No Canal stenosis. At L4-5 there is moderate facet arthropathy. No Canal stenosis. No disc herniation or foraminal encro achment At L5-S1 there is advanced facet arthropathy. No significant foraminal encroachment or canal stenosis . No disc herniation. IMPRESSION: 1. Multilevel mild degenerative disc disease with no disc herniation, canal stenosis, or foraminal en croachment. 2. Multilevel moderate facet arthropathy with advanced facet arthropathy at L5-S1.
== END | disposition home or self-care (01) ==
LOC: RADMRIMAIN 07:55
PROVIDERS: ATTEND Family Medicine
DX: M51.36 Other intervertebral disc degeneration, lumbar region (principal); M46.96 Unspecified inflammatory spondylopathy, lumbar region
CPT/HCPCS: 72148

== ENCOUNTER 2019-07-15 13:40 | Inpatient (IN) | payer MEDICARE ==
[2019-07-15] MEDS ORDERED: SODIUM CHLORIDE 0.9% 1,000 ML IV STA ×2 (14:07)
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
[2019-07-15 14:26] LABS: Basophils % (A) 0 %; Eosinophils # (A) 0.5 k/uL (0-0.7); Eosinophils % (A) 6 %; HCT 37.3 % (39.0-53.0); HGB 12.6 gm/dL (13.0-17.5); Lymphocytes # (A) 2.2 k/uL (1.0-4.8); Lymphocytes % (A) 24 %; MCH 29.1 pg (25.0-35.0); MCHC 33.8 g/dL (31.0-37.0); Mean Platelet Volume 7.3; Monocytes # (A) 0.7 k/uL (0-1.0); Monocytes % (A) 7 %; Neutrophils # (A) 5.6 k/uL (1.3-7.7); Neutrophils % (A) 61 %; Platelet Count 354 k/uL (150-450); RBC 4.34 m/uL (4.30-5.90); RDW 15.9 % (11.5-15.5); WBC 9.3 k/uL (3.8-10.6)
[2019-07-15 14:36] LABS: Albumin 4.1 g/dL (3.5-5.0); Calcium 9.3 mg/dL (8.4-10.2); Potassium 4.7 mmol/L (3.5-5.1); Total Bilirubin 0.3 mg/dL (0.2-1.3); Total Protein 7.3 g/dL (6.3-8.2)
--- NOTE | 2019-07-15 14:40 | XR ---
EXAMINATION TYPE: XR chest 2V DATE OF EXAM: 07/15/2019 COMPARISON: 11/08/2018 HISTORY: Dizziness TECHNIQUE: Frontal and lateral views of the chest are obtained. FINDINGS: There is some atelectasis left lung base. There is no heart failure. Heart size is normal. There are chest leads. Bony thorax is intact. IMPRESSION: Left basilar pleural reaction and atelectasis unchanged. No heart failure.
[2019-07-15 14:43] LABS: INR 0.9 (<1.2); Prothrombin Time 9.4 sec (9.0-12.0)
--- NOTE | 2019-07-15 14:50 | CT ---
EXAMINATION TYPE: CT brain wo con DATE OF EXAM: 07/15/2019 COMPARISON: 09/12/2018 HISTORY: dizziness, fall CT DLP: 1098.4 mGycm Automated exposure control for dose reduction was used. FINDINGS: There is cerebral cortical atrophy. There is no mass effect nor midline shift. There is no sign of in tracranial hemorrhage. There is mild white matter hypodensity. Calvarium is intact. There is little p neumatization of the mastoid sinuses. IMPRESSION: CEREBRAL ATROPHY AND CHRONIC MILD SMALL VESSEL ISCHEMIA. CHRONIC MASTOIDITIS. NO CHANGE.
[2019-07-15] MEDS ORDERED: ORPHENADRINE 30 MG/ML 2 ML VIAL IVP STA (16:13)
[2019-07-15] MEDS ORDERED: MECLIZINE 12.5 MG TAB PO STA (16:13)
[2019-07-15 16:19] LABS: Appearance,Urine Clear (Clear); Bilirubin,Urine Negative (Negative); Blood,Urine Negative (Negative); Color,Urine Light Yellow; Glucose,Urine (UA) Negative (Negative); Ketones,Urine Negative (Negative); Leukocyte Esterase,Urine Negative (Negative); Nitrite,Urine Negative (Negative); Protein,Urine Negative (Negative); Specific Gravity,Urine 1.014 (1.001-1.035); Urobilinogen,Urine <2.0 mg/dL (<2.0)
[2019-07-15] MEDS ORDERED: SODIUM CHLORIDE 0.9% 1,000 ML IV ONE (16:42)
[2019-07-15] MEDS ORDERED: ACETAMINOPHEN TAB 500 MG TAB PO STA (16:42)
[2019-07-15] MEDS ORDERED: NALOXONE 0.4 MG/ML 1 ML VIAL IV PRN (17:16)
[2019-07-15] MEDS ORDERED: ACETAMINOPHEN TAB 325 MG TAB PO PRN (17:16)
[2019-07-15] MEDS ORDERED: ONDANSETRON 4 MG/2 ML VIAL IVP PRN (17:16)
[2019-07-15] MEDS: SODIUM CHLORIDE 0.9% 1,000 ML IV SCH (18:28)
[2019-07-15 19:01] VITALS: BMI 24.3
[2019-07-15] MEDS: MORPHINE SULFATE 4 MG/ML SYRINGE IV PRN ×2 (19:14→23:48)
[2019-07-15 20:03] LABS: Glucose,Whole Blood 158 mg/dL (75-99)
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
[2019-07-16] MEDS: SODIUM CHLORIDE 0.9% 1,000 ML IV SCH ×2 (04:45→14:44)
[2019-07-16] MEDS: LEVOTHYROXINE 25 MCG TAB PO SCH (05:50)
[2019-07-16] MEDS: KETOROLAC 30 MG/ML 1 ML VIAL IVP PRN ×2 (05:53→17:08)
[2019-07-16 06:51] LABS: Glucose,Whole Blood 104 mg/dL (75-99)
[2019-07-16 07:28] LABS: Basophils # (A) 0.1 k/uL (0-0.2); Basophils % (A) 1 %; Eosinophils # (A) 0.6 k/uL (0-0.7); Eosinophils % (A) 7 %; HCT 37.9 % (39.0-53.0); HGB 12.4 gm/dL (13.0-17.5); Lymphocytes # (A) 2.7 k/uL (1.0-4.8); Lymphocytes % (A) 32 %; MCH 28.8 pg (25.0-35.0); MCHC 32.8 g/dL (31.0-37.0); MCV 87.9 fL (80.0-100.0); Mean Platelet Volume 7.2; Monocytes # (A) 0.6 k/uL (0-1.0); Monocytes % (A) 8 %; Neutrophils # (A) 4.3 k/uL (1.3-7.7); Neutrophils % (A) 50 %; Platelet Count 328 k/uL (150-450); RBC 4.32 m/uL (4.30-5.90); RDW 15.9 % (11.5-15.5); WBC 8.6 k/uL (3.8-10.6)
[2019-07-16] MEDS: PANTOPRAZOLE 40 MG/10 ML VIAL IV SCH (07:35)
[2019-07-16] MEDS: HEPARIN SODIUM,PORCINE 5,000 UNIT/ML 1 ML VIAL SQ SCH ×2 (07:35→15:27)
[2019-07-16 07:43] LABS: Calcium 9.3 mg/dL (8.4-10.2); Potassium 5.3 mmol/L (3.5-5.1)
[2019-07-16] MEDS: IBUPROFEN 400 MG TAB PO PRN ×2 (08:35→15:29)
[2019-07-16 08:40] LABS: T4, Free (Free Thyroxine) 1.58 ng/dL (0.78-2.19)
[2019-07-16 10:56] LABS: Glucose,Whole Blood 97 mg/dL (75-99)
[2019-07-16] MEDS: HYDROcodone/APAP 10-325MG 1 EACH TAB PO PRN ×2 (12:01→20:34)
[2019-07-16 16:58] LABS: Glucose,Whole Blood 103 mg/dL (75-99)
[2019-07-16 19:58] LABS: Glucose,Whole Blood 120 mg/dL (75-99)
[2019-07-17] MEDS: SODIUM CHLORIDE 0.9% 1,000 ML IV SCH ×2 (00:19→08:52)
[2019-07-17] MEDS: HEPARIN SODIUM,PORCINE 5,000 UNIT/ML 1 ML VIAL SQ SCH ×3 (00:19→15:17)
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
[2019-07-17] MEDS: KETOROLAC 30 MG/ML 1 ML VIAL IVP PRN (04:14)
[2019-07-17] MEDS: HYDROcodone/APAP 10-325MG 1 EACH TAB PO PRN ×2 (04:38→10:35)
[2019-07-17] MEDS: LEVOTHYROXINE 25 MCG TAB PO SCH (05:21)
[2019-07-17 06:55] LABS: Glucose,Whole Blood 92 mg/dL (75-99)
[2019-07-17 07:55] LABS: Basophils # (A) 0.2 k/uL (0-0.2); Basophils % (A) 2 %; Eosinophils # (A) 0.4 k/uL (0-0.7); Eosinophils % (A) 6 %; HCT 35.1 % (39.0-53.0); HGB 11.4 gm/dL (13.0-17.5); Lymphocytes # (A) 2.1 k/uL (1.0-4.8); Lymphocytes % (A) 28 %; MCH 28.3 pg (25.0-35.0); MCHC 32.5 g/dL (31.0-37.0); MCV 87.2 fL (80.0-100.0); Mean Platelet Volume 7.4; Monocytes # (A) 0.5 k/uL (0-1.0); Monocytes % (A) 7 %; Neutrophils # (A) 4.2 k/uL (1.3-7.7); Neutrophils % (A) 56 %; Platelet Count 316 k/uL (150-450); RBC 4.02 m/uL (4.30-5.90); RDW 15.6 % (11.5-15.5); WBC 7.5 k/uL (3.8-10.6)
[2019-07-17 08:24] LABS: African American GFR (CKD) >90 (>60 ml/min/1.73 sqM); Anion Gap 8 mmol/L; Blood Urea Nitrogen 23 mg/dL (9-20); Calcium 8.8 mg/dL (8.4-10.2); Carbon Dioxide 19 mmol/L (22-30); Chloride 113 mmol/L (98-107); Glucose 88 mg/dL (74-99); Potassium 5.4 mmol/L (3.5-5.1); Sodium 140 mmol/L (137-145)
[2019-07-17] MEDS: PANTOPRAZOLE 40 MG/10 ML VIAL IV SCH (08:52)
[2019-07-17] MEDS ORDERED: MECLIZINE 12.5 MG TAB PO PRN (10:38)
[2019-07-17 11:22] LABS: Glucose,Whole Blood 114 mg/dL (75-99)
[2019-07-17 11:51] VITALS: BP 155/71; PULSE 71; RESP 17; TEMP 98.3
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
== END 2019-07-17 17:03 | disposition home or self-care (01) | DRG 641 ==
LOC: EC 13:40 → 3NMEDONC 17:22 → OBSVTOIN 07-17 13:20
PROVIDERS: ADMIT Family Medicine; ATTEND Family Medicine
DX: E86.0 Dehydration (principal); J98.11 Atelectasis; N17.9 Acute kidney failure, unspecified; E87.2 Acidosis; J44.9 Chronic obstructive pulmonary disease, unspecified; E86.9 Volume depletion, unspecified; E11.9 Type 2 diabetes mellitus without complications; E03.9 Hypothyroidism, unspecified; F17.200 Nicotine dependence, unspecified, uncomplicated; G89.29 Other chronic pain; H70.10 Chronic mastoiditis, unspecified ear; I10 Essential (primary) hypertension; I95.1 Orthostatic hypotension; K21.9 Gastro-esophageal reflux disease without esophagitis; R20.0 Anesthesia of skin; M54.9 Dorsalgia, unspecified; M47.9 Spondylosis, unspecified; G44.89 Other headache syndrome; Z79.899 Other long term (current) drug therapy; Z79.1 Long term (current) use of non-steroidal anti-inflammatories (NSAID); Z79.890 Hormone replacement therapy; Z79.84 Long term (current) use of oral hypoglycemic drugs; Z90.49 Acquired absence of other specified parts of digestive tract; Z86.010 Personal history of colon polyps; Z83.3 Family history of diabetes mellitus
CPT/HCPCS: 36415; 70450; 71046; 80048; 80053; 81003; 82150; 83605; 83690; 84439; 84443; 84484; 85025; 85610; 93005; 96361; 96374; 99285

== ENCOUNTER 2020-10-09 07:15 | Emergency (ER) | payer MEDICARE ==
[2020-10-09 07:28] VITALS: RESP 18
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
[2020-10-09] MEDS ORDERED: DEXAMETHASONE SOD PHOSPHATE 10 MG/ML 1 ML VIAL IM STA (08:16)
[2020-10-09 08:31] VITALS: BP 148/84; PULSE 72; TEMP 98
== END 2020-10-09 08:30 | disposition home or self-care (01) ==
LOC: EC 07:15
DX: J40 Bronchitis, not specified as acute or chronic (principal); J02.9 Acute pharyngitis, unspecified; E11.9 Type 2 diabetes mellitus without complications; I10 Essential (primary) hypertension; E03.9 Hypothyroidism, unspecified; F17.200 Nicotine dependence, unspecified, uncomplicated; Z79.84 Long term (current) use of oral hypoglycemic drugs; Z79.890 Hormone replacement therapy; Z79.899 Other long term (current) drug therapy; Z90.49 Acquired absence of other specified parts of digestive tract; Z20.828 Contact with and (suspected) exposure to other viral communicable diseases
CPT/HCPCS: 99284 ×2; 96372 ×2; 87635; J1100

== ENCOUNTER 2020-10-12 06:48 | Inpatient (IN) | payer MEDICARE ==
[2020-10-12] MEDS ORDERED: ACETAMINOPHEN TAB 500 MG TAB PO STA (06:59)
[2020-10-12] MEDS ORDERED: methylPREDNISolone SOD SUCCI 125 MG/2 ML VIAL IV STA (07:01)
[2020-10-12] MEDS ORDERED: SODIUM CHLORIDE 0.9% 1,000 ML IV ONE (07:03)
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
--- NOTE | 2020-10-12 07:21 | XR ---
EXAMINATION TYPE: XR chest 1V portable DATE OF EXAM: 10/12/2020 COMPARISON: 07/15/2019 HISTORY: Cough TECHNIQUE: Single frontal view of the chest is obtained. FINDINGS: There are bilateral infiltrates. Coarsened interstitium and underlying COPD. No pneumothor ax. Heart size normal. IMPRESSION: Bilateral lower lobe infiltrate.
[2020-10-12] MEDS: SODIUM CHLORIDE 0.9% 1,000 ML IV SCH ×2 (07:35→16:14)
[2020-10-12] MEDS ORDERED: AZITHROMYCIN 500 MG in SODIUM CHLORIDE 0.9% 250 ML IVPB STA ×2 (07:40→09:00)
[2020-10-12 07:44] LABS: Basophils # (A) 0.1 k/uL (0-0.2); Basophils % (A) 1 %; Eosinophils # (A) 0.3 k/uL (0-0.7); Eosinophils % (A) 2 %; HCT 42.6 % (39.0-53.0); HGB 14.1 gm/dL (13.0-17.5); Lymphocytes # (A) 3.8 k/uL (1.0-4.8); Lymphocytes % (A) 23 %; MCHC 33.2 g/dL (31.0-37.0); MCV 90.3 fL (80.0-100.0); Mean Platelet Volume 7.8; Monocytes # (A) 1.3 k/uL (0-1.0); Monocytes % (A) 7 %; Neutrophils # (A) 11.2 k/uL (1.3-7.7); Neutrophils % (A) 66 %; Platelet Count 367 k/uL (150-450); RBC 4.71 m/uL (4.30-5.90); RDW 14.1 % (11.5-15.5)
[2020-10-12] MEDS ORDERED: ALBUTEROL HFA INHALER INHALATION STA (07:47)
[2020-10-12 07:56] LABS: ALT 25 U/L (4-49); AST 22 U/L (17-59); African American GFR (CKD) >90 (>60 ml/min/1.73 sqM); Albumin 4.3 g/dL (3.5-5.0); Alkaline Phosphatase 115 U/L (38-126); Anion Gap 7 mmol/L; Blood Urea Nitrogen 9 mg/dL (9-20); C Reactive Protein <5.0 mg/L (<10.0); Calcium 9.3 mg/dL (8.4-10.2); Carbon Dioxide 29 mmol/L (22-30); Chloride 102 mmol/L (98-107); Glucose 280 mg/dL (74-99); LDH 418 U/L (313-618); Magnesium 1.7 mg/dL (1.6-2.3); Non-African American GFR(CKD) 89 (>60 ml/min/1.73 sqM); Potassium 3.8 mmol/L (3.5-5.1); Sodium 138 mmol/L (137-145); Total Bilirubin 0.4 mg/dL (0.2-1.3); Total Protein 7.4 g/dL (6.3-8.2)
[2020-10-12 08:08] LABS: INR 0.9 (<1.2); Prothrombin Time 9.5 sec (9.0-12.0)
[2020-10-12 08:11] LABS: Partial Thromboplastin Time 21.2 sec (22.0-30.0)
[2020-10-12] MEDS ORDERED: NALOXONE 0.4 MG/ML 1 ML VIAL IV PRN (08:58)
[2020-10-12] MEDS ORDERED: ONDANSETRON 4 MG/2 ML VIAL IVP PRN (08:58)
[2020-10-12] MEDS ORDERED: ACETAMINOPHEN TAB 325 MG TAB PO PRN (08:58)
[2020-10-12] MEDS ORDERED: IBUPROFEN 400 MG TAB PO PRN (08:58)
[2020-10-12] MEDS ORDERED: PANTOPRAZOLE 40 MG/10 ML VIAL IV SCH (09:00)
[2020-10-12] MEDS ORDERED: PNEUMONIA PROTOCOL UTILIZED 1 EACH MISC PO PRN (09:00)
[2020-10-12 11:14] LABS: Glucose,Whole Blood 294 mg/dL (75-99)
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
[2020-10-12] MEDS ORDERED: INSULIN ASPART (NovoLOG) 100 UNIT/ML VIAL SQ SCH (12:30)
[2020-10-12] MEDS: INSULIN ASPART (NovoLOG) 100 UNIT/ML VIAL SQ SCH ×3 (13:03→21:26)
[2020-10-12] MEDS: NICOTINE 14MG/24HR PATCH TRANSDERM SCH (13:04)
[2020-10-12 13:38] LABS: Ferritin 17.5 ng/mL (22.0-322.0)
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
[2020-10-12] MEDS: methylPREDNISolone SOD SUCCI 40 MG/ML 1 ML VIAL IV SCH (16:13)
[2020-10-12] MEDS: ALBUTEROL NEBULIZED 2.5 MG/3 ML INHALATION SCH ×2 (16:35→20:51)
[2020-10-12] MEDS: KETOROLAC 15 MG/ML 1 ML VIAL IVP PRN (17:22)
[2020-10-12 17:30] LABS: Glucose,Whole Blood 483 mg/dL (75-99)
[2020-10-12] MEDS ORDERED: methylPREDNISolone SOD SUCCI 125 MG/2 ML VIAL IV SCH (18:00)
[2020-10-12] MEDS: oxyCODONE-APAP 5-325MG 1 EACH TAB PO PRN (19:35)
[2020-10-12 20:35] LABS: Glucose,Whole Blood 302 mg/dL (75-99)
[2020-10-12] MEDS: SYMBICORT 160-4.5 MCG INHALER INHALATION SCH (20:51)
[2020-10-12] MEDS: FAMOTIDINE 20 MG TAB PO SCH (21:25)
[2020-10-13] MEDS: oxyCODONE-APAP 5-325MG 1 EACH TAB PO PRN (00:19)
[2020-10-13] MEDS: methylPREDNISolone SOD SUCCI 40 MG/ML 1 ML VIAL IV SCH ×2 (01:42→08:03)
[2020-10-13] MEDS: SODIUM CHLORIDE 0.9% 1,000 ML IV SCH ×3 (02:00→21:10)
[2020-10-13] MEDS: KETOROLAC 15 MG/ML 1 ML VIAL IVP PRN (04:01)
[2020-10-13 07:07] LABS: Glucose,Whole Blood 372 mg/dL (75-99)
--- NOTE | 2020-10-13 07:41 | XR ---
EXAMINATION TYPE: XR chest 1V DATE OF EXAM: 10/13/2020 HISTORY: Shortness of breath. COMPARISON: 10/12/2020 TECHNIQUE: Single view of the chest is submitted. FINDINGS: Demonstrated are scattered senescent parenchymal change. Patchy basilar infiltrates persist without significant interval change. The heart is stable. Hilar and mediastinal structures are within normal limits. Degenerative changes are seen of the dorsal spine. IMPRESSION: 1. Patchy basilar infiltrates persist without significant interval change.
[2020-10-13] MEDS: INSULIN ASPART (NovoLOG) 100 UNIT/ML VIAL SQ SCH ×4 (08:02→21:10)
[2020-10-13] MEDS: ENOXAPARIN 40 MG/0.4 ML SYRINGE SQ SCH (08:02)
[2020-10-13] MEDS: FAMOTIDINE 20 MG TAB PO SCH ×2 (08:03→21:11)
[2020-10-13] MEDS: PANTOPRAZOLE 40 MG TABLET PO SCH (08:03)
[2020-10-13] MEDS: NICOTINE 14MG/24HR PATCH TRANSDERM SCH (08:03)
[2020-10-13] MEDS ORDERED: AZITHROMYCIN 500 MG TAB PO SCH (09:00)
[2020-10-13] MEDS: SYMBICORT 160-4.5 MCG INHALER INHALATION SCH ×3 (10:55→20:45)
[2020-10-13] MEDS: ALBUTEROL NEBULIZED 2.5 MG/3 ML INHALATION SCH ×4 (10:55→20:45)
[2020-10-13 11:07] LABS: Glucose,Whole Blood 390 mg/dL (75-99)
--- NOTE | 2020-10-13 12:24 | P.PN ---
Subjective 75-year-old pleasant male came in with complaints of cough with sputum production patient does symptoms started on December 10 as a sore throat. Breezy nicole denied any fever or night sweats chest x-ray showing bilateral infiltrates with possibly of pneumonia patient was recently treated for pharyngitis and bronchitis with on Augmentin and Medrol Dosepak comes back with worsening cough with sputum production. Patient white blood cell count is elevated but can be a steroid effect patient was started on Rocephin and azithromycin and lactic acid was 2.0Toprol calcitonin is within normal limits although patient is hypoxic and is in COPD exacerbation. Patient was started on 6 systemic steroids patient was negative for covid 19the patient doesn't use any oxygen at home was requiring oxygen on admission presently on room air saturating low 90s. 10/13/2020 Patient is on room air not requiring any oxygen patient blood sugars are highly elevated and patient is noncompliant with diet. We'll cut down the steroids to 40 mg daily. We'll change the scale of steroids. Constitutional: Denied any fatigue denied any fever. Cardio vascular: denied any chest pain, palpitations Gastrointestinal denied any nausea vomiting Pulmonary: shortness of breath significantly improved Neurologic denied any new focal deficits All inpatient medications were reviewed and appropriate changes in these medications as dictated in the interval history and assessment and plan. Objective - Vital Signs Vital signs: Vital Signs Temp 96.9 F L 10/13/20 11:00 Pulse 87 10/13/20 12:08 Resp 17 10/13/20 11:00 BP 180/83 10/13/20 11:00 Pulse Ox 92 L 10/13/20 11:00 Intake & Output 10/12/20 10/13/20 10/13/20 18:59 06:59 18:59 Intake Total 350 Output Total 475 600 Balance -475 -250 Weight 81.647 kg Intake: Oral 350 Output: Urine 475 600 Other: Voiding Method Urinal Urinal # Voids 300 2 - Exam PHYSICAL EXAMINATION: GENERAL: The patient is alert and oriented x3, not in any acute distress. Well developed, well nourished. HEENT: Pupils are round and equally reacting to light. EOMI. No scleral icterus. No conjunctival pallor. Normocephalic, atraumatic. No pharyngeal erythema. No thyromegaly. CARDIOVASCULAR: S1 and S2 present. No murmurs, rubs, or gallops. PULMONARY: significantly diminished air entry into bilateral lung reilly with mild expiratory wheezing , respiratory status overall improved compared to yesterday ABDOMEN: Soft, nontender, nondistended, normoactive bowel sounds. No palpable organomegaly. MUSCULOSKELETAL: No joint swelling or deformity. EXTREMITIES: No cyanosis, clubbing, or pedal edema. NEUROLOGICAL: Gross neurological examination did not reveal any focal deficits. SKIN: No rashes. - Labs CBC & Chem 7: 10/12/20 07:29 10/12/20 07:29 Labs: Abnormal Lab Results - Last 24 Hours (Table) 10/12/20 10/12/20 10/12/20 Range/Units 07:29 17:29 20:34 POC Glucose (mg/dL) 483 H 302 H (75-99) mg/dL Ferritin 17.5 L (22.0-322.0) ng/mL 10/13/20 10/13/20 Range/Units 07:05 11:06 POC Glucose (mg/dL) 372 H 390 H (75-99) mg/dL Ferritin (22.0-322.0) ng/mL Microbiology - Last 24 Hours (Table) 10/12/20 07:29 Blood Culture - Preliminary Blood No Growth after 24 hours Assessment and Plan Plan: -COPD exacerbation: With the tracheobronchitis possibility of pneumonia is low for calcitonin is pendingthe patient is pleasant and systemic steroids inhalational treatmentssteroids will be switched to oral -Nicotine dependence: Counseling was provided -hypertension -Type 2 diabetes mellitus: elevated uncontrolled blood sugars secondary to IV steroids patient will be switched to oral steroids continue with the sliding scale apart from his home regimen for diabetes -Hypothyroidism -Gastroesophageal reflux disease -Chronic low back pain -due to prophylaxis with Lovenox GI prophylaxis with Pepcid
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
[2020-10-13 17:09] LABS: Glucose,Whole Blood 345 mg/dL (75-99)
[2020-10-13 20:32] LABS: Glucose,Whole Blood 284 mg/dL (75-99)
[2020-10-13] MEDS: DOXYCYCLINE 100 MG CAP PO SCH (21:10)
[2020-10-13 22:31] VITALS: RESP 18
[2020-10-14 05:44] VITALS: BP 161/81; TEMP 98
[2020-10-14 07:09] LABS: Glucose,Whole Blood 212 mg/dL (75-99)
[2020-10-14] MEDS: ALBUTEROL NEBULIZED 2.5 MG/3 ML INHALATION SCH (07:20)
[2020-10-14] MEDS: SYMBICORT 160-4.5 MCG INHALER INHALATION SCH (07:21)
[2020-10-14 07:24] VITALS: PULSE 76
[2020-10-14] MEDS: ENOXAPARIN 40 MG/0.4 ML SYRINGE SQ SCH (08:09)
[2020-10-14] MEDS: DOXYCYCLINE 100 MG CAP PO SCH (08:09)
[2020-10-14] MEDS: INSULIN ASPART (NovoLOG) 100 UNIT/ML VIAL SQ SCH (08:09)
[2020-10-14] MEDS: PANTOPRAZOLE 40 MG TABLET PO SCH (08:09)
[2020-10-14] MEDS: FAMOTIDINE 20 MG TAB PO SCH (08:09)
[2020-10-14] MEDS: NICOTINE 14MG/24HR PATCH TRANSDERM SCH (08:10)
[2020-10-14] MEDS ORDERED: predniSONE 20 MG TAB PO SCH (09:00)
[2020-10-14] MEDS: SODIUM CHLORIDE 0.9% 1,000 ML IV SCH (09:44)
== END 2020-10-14 11:05 | disposition home or self-care (01) | DRG 192 ==
LOC: EC 06:48 → 6NMEDSUR 09:05
PROVIDERS: ADMIT Family Medicine; ATTEND Family Medicine
DX: J44.1 Chronic obstructive pulmonary disease with (acute) exacerbation (principal); J44.0 Chronic obstructive pulmonary disease with (acute) lower respiratory infection; E03.9 Hypothyroidism, unspecified; E11.9 Type 2 diabetes mellitus without complications; F17.200 Nicotine dependence, unspecified, uncomplicated; G89.29 Other chronic pain; I10 Essential (primary) hypertension; K21.9 Gastro-esophageal reflux disease without esophagitis; M54.5 Low back pain; Z20.828 Contact with and (suspected) exposure to other viral communicable diseases; Z83.3 Family history of diabetes mellitus; Z79.899 Other long term (current) drug therapy; Z79.890 Hormone replacement therapy; Z79.84 Long term (current) use of oral hypoglycemic drugs; Z79.1 Long term (current) use of non-steroidal anti-inflammatories (NSAID); Z90.49 Acquired absence of other specified parts of digestive tract; Z98.890 Other specified postprocedural states
CPT/HCPCS: 36415; 71045; 80053; 82728; 83605; 83615; 83735; 83880; 84145; 85025; 85610; 85730; 86140; 87040; 87635; 93005; 94640; 96365; 96367; 96375; 99285

== ENCOUNTER 2020-11-02 13:39 | Inpatient (IN) | payer MEDICARE ==
[2020-11-02 14:19] LABS: Basophils # (A) 0.1 k/uL (0-0.2); Basophils % (A) 0 %; Eosinophils # (A) 0.1 k/uL (0-0.7); Eosinophils % (A) 0 %; HGB 12.1 gm/dL (13.0-17.5); Lymphocytes # (A) 1.6 k/uL (1.0-4.8); Lymphocytes % (A) 11 %; MCH 30.8 pg (25.0-35.0); MCHC 34.6 g/dL (31.0-37.0); Mean Platelet Volume 7.3; Monocytes # (A) 1.1 k/uL (0-1.0); Monocytes % (A) 7 %; Neutrophils # (A) 12.1 k/uL (1.3-7.7); Neutrophils % (A) 80 %; Platelet Count 333 k/uL (150-450); RBC 3.94 m/uL (4.30-5.90); WBC 15.1 k/uL (3.8-10.6)
[2020-11-02 14:32] LABS: Albumin 3.6 g/dL (3.5-5.0); Partial Thromboplastin Time 22.3 sec (22.0-30.0); Potassium 3.1 mmol/L (3.5-5.1); Prothrombin Time 10.4 sec (9.0-12.0); Total Bilirubin 0.6 mg/dL (0.2-1.3); Total Protein 6.4 g/dL (6.3-8.2)
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
--- NOTE | 2020-11-02 14:34 | XR ---
EXAMINATION TYPE: XR chest 1V portable DATE OF EXAM: 11/02/2020 COMPARISON: 10/13/2020 HISTORY: Short of breath TECHNIQUE: Single view FINDINGS: There is blunting of the costophrenic angles and poor inspiration. There is coarsening of i nterstitial markings. There is no gross heart failure. IMPRESSION: There is pleural reaction and atelectasis at the lung bases unchanged compared to old exa m. No heart failure seen. Pulmonary fibrosis.
[2020-11-02 14:43] LABS: D-Dimer 1.34 mg/L FEU (<0.60)
[2020-11-02] MEDS ORDERED: SODIUM CHLORIDE 0.9% 1,000 ML IV ONE (14:45)
[2020-11-02] MEDS: SODIUM CHLORIDE 0.9% 1,000 ML IV SCH (14:48)
[2020-11-02] MEDS ORDERED: VANCOMYCIN IV PER PHARMACY 1 EACH MISC MISCELLANE PRN (15:17)
[2020-11-02] MEDS ORDERED: PIPERACILLIN-TAZOBACTAM 3.375 GM in SODIUM CHLORIDE 0.9% 100 ML IVPB STA (15:17)
[2020-11-02] MEDS ORDERED: VANCOMYCIN 1,500 MG in SODIUM CHLORIDE 0.9% 250 ML IVPB ONE (15:45)
[2020-11-02] MEDS: POTASSIUM CHLORIDE 10 MEQ in WATER FOR INJECTION 1 100ML.BAG IVPB SCH ×2 (16:06→18:08)
[2020-11-02] MEDS ORDERED: NALOXONE 0.4 MG/ML 1 ML VIAL IV PRN ×2 (17:39→21:35)
--- NOTE | 2020-11-02 18:15 | NM ---
EXAMINATION TYPE: NM pul vent and perfuse DATE OF EXAM: 11/02/2020 COMPARISON: NONE HISTORY: TECHNIQUE: Utilizing inhalation of 38.8 mCi Tc 99m DTPA aerosol and intravenous injection of 5.1 mCi of Tc 99m MAA, ventilation and perfusion images are acquired post injection in multiple projections. FINDINGS: There are large matching defects involving both upper lobes. There is patchy abnormal decreased venti lation and perfusion in both lower lobes. Ventilation abnormalities appear larger than the perfusion abnormalities.. IMPRESSION: Numerous matching large defects consistent with severe airway disease. There is intermediate probabil ity of pulmonary embolism.
[2020-11-02] MEDS ORDERED: HEPARIN SODIUM,PORCINE 5,000 UNIT/ML 1 ML VIAL IV PRN (19:20)
[2020-11-02] MEDS ORDERED: HEPARIN SODIUM,PORCINE 10,000 UNIT/ML 1 ML VIAL IV ONE (19:20)
[2020-11-02 19:46] LABS: Glucose,Whole Blood 222 mg/dL (75-99)
[2020-11-02] MEDS ORDERED: IPRATROPIUM-ALBUTEROL 3 ML NEB INHALATION PRN (20:45)
[2020-11-02] MEDS: ALBUTEROL HFA INHALER INHALATION PRN (21:05)
[2020-11-02] MEDS: HEPARIN SOD,PORK IN 0.45% NACL 25,000 UNIT in 0.45% NACL 1 250ML.BAG IV SCH (21:22)
[2020-11-02] MEDS: HYDROcodone/APAP 10-325MG 1 EACH TAB PO PRN (21:28)
[2020-11-02] MEDS: GABAPENTIN 300 MG CAP PO SCH (21:28)
[2020-11-02] MEDS: INSULIN ASPART (NovoLOG) 100 UNIT/ML VIAL SQ SCH (21:29)
[2020-11-03] MEDS: SODIUM CHLORIDE 0.9% 1,000 ML IV SCH ×3 (01:30→17:09)
[2020-11-03] MEDS: HYDROcodone/APAP 10-325MG 1 EACH TAB PO PRN ×2 (03:27→17:07)
[2020-11-03 03:29] LABS: Basophils % (A) 0 %; Eosinophils # (A) 0.1 k/uL (0-0.7); Eosinophils % (A) 1 %; HCT 32.4 % (39.0-53.0); HGB 10.9 gm/dL (13.0-17.5); Lymphocytes # (A) 1.1 k/uL (1.0-4.8); Lymphocytes % (A) 10 %; MCH 30.1 pg (25.0-35.0); MCHC 33.8 g/dL (31.0-37.0); MCV 89.1 fL (80.0-100.0); Mean Platelet Volume 8.1; Monocytes # (A) 0.6 k/uL (0-1.0); Monocytes % (A) 6 %; Neutrophils % (A) 81 %; Platelet Count 254 k/uL (150-450); RBC 3.64 m/uL (4.30-5.90); RDW 14.2 % (11.5-15.5)
[2020-11-03 03:39] LABS: Calcium 7.6 mg/dL (8.4-10.2); Potassium 3.1 mmol/L (3.5-5.1)
[2020-11-03 03:45] LABS: Partial Thromboplastin Time 22.5 sec (22.0-30.0); Prothrombin Time 10.6 sec (9.0-12.0)
[2020-11-03] MEDS ORDERED: Potassium Replacement Protocol 1 EACH MISC MISCELLANE PRN (04:39)
[2020-11-03] MEDS: POTASSIUM CHLORIDE ER 20 MEQ TAB.ER PO SCH ×2 (05:26→06:38)
[2020-11-03] MEDS: LEVOTHYROXINE 50 MCG TAB PO SCH (05:26)
[2020-11-03 06:12] LABS: Glucose,Whole Blood 385 mg/dL (75-99)
[2020-11-03] MEDS: INSULIN ASPART (NovoLOG) 100 UNIT/ML VIAL SQ SCH ×4 (06:38→20:32)
[2020-11-03] MEDS: ALBUTEROL HFA INHALER INHALATION PRN ×4 (07:49→19:48)
[2020-11-03] MEDS: TIOTROPIUM 2.5 MCG INHALER INHALATION SCH (07:50)
[2020-11-03] MEDS: ATORVASTATIN 20 MG TAB PO SCH (08:34)
[2020-11-03] MEDS: GABAPENTIN 300 MG CAP PO SCH (08:34)
[2020-11-03 08:35] LABS: Magnesium 1.7 mg/dL (1.6-2.3); Potassium 3.2 mmol/L (3.5-5.1)
--- NOTE | 2020-11-03 09:16 | CT ---
EXAMINATION TYPE: CT chest wo con DATE OF EXAM: 11/03/2020 COMPARISON: HISTORY: ILD/Pulmonary Fibrosis CT DLP: 303.4 mGycm. Automated Exposure Control for Dose Reduction was Utilized. TECHNIQUE: CT scan of the thorax is performed without IV contrast. FINDINGS: LUNGS: There is bilateral groundglass changes and areas of consolidation. Underlying COPD noted with no pneumothorax. Along the diaphragm suggestion of pleural calcification. Mild interlobular septal th ickening at the lung bases.. MEDIASTINUM: Lack of IV contrast is noted to limit evaluation for mediastinal and especially hilar ad enopathy. There are no definitive greater than 1 cm hilar or mediastinal lymph nodes. No cardiomega ly or pericardial effusion is seen. Atherosclerotic change of the aorta. Calcification near the aorti c valve. Coronary artery calcification noted. OTHER: Surgical clips in the gallbladder fossa.. IMPRESSION: 1. COPD with patchy groundglass bilateral areas of infiltrate correlate for pneumonia. 2. Changes of mild basilar interlobular septal thickening and interstitial lung disease.
--- NOTE | 2020-11-03 09:56 | US ---
EXAMINATION TYPE: US venous doppler duplex LE DATE OF EXAM: 11/03/2020 9:39 AM COMPARISON: NONE CLINICAL HISTORY: dvt abnormal vq scan. patient is agitated and very difficult to understand, no leg swelling, possible PE SIDE PERFORMED: Bialteral TECHNIQUE: The lower extremity deep venous system is examined utilizing real time linear array sonog flavio with graded compression, doppler sonography and color-flow sonography. VESSELS IMAGED: Common Femoral Vein Deep Femoral Vein Greater Saphenous Vein * Femoral Vein Popliteal Vein Small Saphenous Vein * Proximal Calf Veins (* superficial vessels) Right Leg: Negative for DVT 4.2cm fluid collection noted laterally in right popiteal fossa Left Leg: Negative for DVT IMPRESSION: 1. Grayscale, color doppler, spectral doppler imaging performed of the deep veins of the lower extrem ities. There is normal flow, compressibility, vascular waveforms. 2. There is a nonspecific 4.2 cm popliteal fossa fluid collection in the right likely related to the popliteal fossa cyst.
[2020-11-03] MEDS: POTASSIUM CHLORIDE 10 MEQ in WATER FOR INJECTION 1 100ML.BAG IVPB SCH ×4 (10:50→19:02)
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
[2020-11-03] MEDS ORDERED: MAGNESIUM SULFATE-D5W PMX 1 GM in DEXTROSE/WATER 1 100ML.BAG IVPB ONE (11:30)
[2020-11-03] MEDS ORDERED: VANCOMYCIN 1,500 MG in SODIUM CHLORIDE 0.9% 250 ML IVPB ONE ×2 (12:00→16:00)
[2020-11-03 12:29] LABS: Glucose,Whole Blood 178 mg/dL (75-99)
[2020-11-03] MEDS: VANCOMYCIN 1,500 MG in SODIUM CHLORIDE 0.9% 250 ML IVPB SCH (13:28)
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
[2020-11-03] MEDS: HEPARIN SOD,PORK IN 0.45% NACL 25,000 UNIT in 0.45% NACL 1 250ML.BAG IV SCH (16:44)
[2020-11-03] MEDS: PIPERACILLIN-TAZOBACTAM 3.375 GM in SODIUM CHLORIDE 0.9% 100 ML IVPB SCH ×2 (17:06→23:24)
[2020-11-03 17:10] LABS: Glucose,Whole Blood 214 mg/dL (75-99)
[2020-11-03] MEDS: SYMBICORT 160-4.5 MCG INHALER INHALATION SCH (19:47)
[2020-11-03 19:54] LABS: Glucose,Whole Blood 263 mg/dL (75-99)
[2020-11-03] MEDS: GABAPENTIN 100 MG CAP PO SCH (20:33)
[2020-11-03] MEDS ORDERED: POTASSIUM CHLORIDE ER 20 MEQ TAB.ER PO STA (22:29)
[2020-11-04] MEDS ORDERED: POTASSIUM CHLORIDE ER 20 MEQ TAB.ER PO SCH
[2020-11-04] MEDS: SODIUM CHLORIDE 0.9% 1,000 ML IV SCH ×3 (03:37→21:47)
[2020-11-04] MEDS: VANCOMYCIN 1,500 MG in SODIUM CHLORIDE 0.9% 250 ML IVPB SCH ×2 (03:38→14:13)
[2020-11-04] MEDS: INSULIN ASPART (NovoLOG) 100 UNIT/ML VIAL SQ SCH ×4 (06:11→21:47)
[2020-11-04] MEDS: LEVOTHYROXINE 50 MCG TAB PO SCH (06:12)
[2020-11-04 06:13] LABS: Glucose,Whole Blood 172 mg/dL (75-99)
[2020-11-04 07:56] LABS: Albumin 2.8 g/dL (3.5-5.0); Calcium 7.8 mg/dL (8.4-10.2); Magnesium 1.8 mg/dL (1.6-2.3); Potassium 3.9 mmol/L (3.5-5.1); Total Bilirubin 0.5 mg/dL (0.2-1.3); Total Protein 5.4 g/dL (6.3-8.2)
[2020-11-04] MEDS: GABAPENTIN 100 MG CAP PO SCH ×2 (08:38→21:47)
[2020-11-04] MEDS: ATORVASTATIN 20 MG TAB PO SCH (08:38)
[2020-11-04] MEDS: PIPERACILLIN-TAZOBACTAM 3.375 GM in SODIUM CHLORIDE 0.9% 100 ML IVPB SCH ×3 (08:39→22:46)
[2020-11-04 08:40] LABS: Vancomycin,Random 25.9 ug/mL
[2020-11-04] MEDS: TIOTROPIUM 2.5 MCG INHALER INHALATION SCH (09:08)
[2020-11-04] MEDS: SYMBICORT 160-4.5 MCG INHALER INHALATION SCH ×2 (09:08→19:29)
[2020-11-04 11:36] LABS: Glucose,Whole Blood 250 mg/dL (75-99)
[2020-11-04] MEDS: NICOTINE 14MG/24HR PATCH TRANSDERM SCH (12:24)
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
--- NOTE | 2020-11-04 16:21 | P.PN ---
Subjective Progress Note Date: 11/04/20 This is a 75-year-old gentleman admitted with acute COPD exacerbation, interstitial lung disease, healthcare acquired pneumonia, acute hypoxic respiratory failure and multiple other medical issues. Maintained on nebulized bronchodilators, Zosyn, vancomycin. Remains off of metformin secondary to her renal failure, renal function improving, creatinine down to 1.01. Blood sugars elevated in the 200s Sodium improving with IV fluid hydration, up to 136. Potassium 3.9, normal magnesium. AST/ALT mildly trending up, T bili within normal limits. Maintaining O2 sats in the high 90s on 3 L nasal cannula. Afebrile. Objective - Vital Signs Vital signs: Vital Signs Temp 98.2 F 11/04/20 15:34 Pulse 81 11/04/20 15:34 Resp 18 11/04/20 15:34 BP 143/76 11/04/20 15:34 Pulse Ox 95 11/04/20 15:34 Intake & Output 11/03/20 11/04/20 11/04/20 18:59 06:59 18:59 Intake Total 125 472 Output Total 500 350 Balance -375 122 Weight 80 kg Intake: Oral 125 472 Output: Urine 500 350 Other: Voiding Method Incontinent Incontinent # Voids 1 1 - Exam PHYSICAL EXAMINATION: GENERAL: Sitting up in bed, alert and oriented x3, no acute distress, mumbles. HEENT: Pupils are round and equally reacting to light. EOMI. No scleral icterus. No conjunctival pallor. Normocephalic, atraumatic. No pharyngeal erythema. No thyromegaly. CARDIOVASCULAR: S1 and S2 present. No murmurs, rubs, or gallops. PULMONARY: Chest is clear to auscultation, fine bibasilar crackles, minimal expiratory wheezing ABDOMEN: Soft, nontender, nondistended, normoactive bowel sounds. No palpable organomegaly. MUSCULOSKELETAL: No joint swelling or deformity. EXTREMITIES: No cyanosis, clubbing, or pedal edema. NEUROLOGICAL: Gross neurological examination did not reveal any focal deficits. SKIN: No rashes. - Labs CBC & Chem 7: 11/03/20 03:16 11/04/20 07:03 Labs: Abnormal Lab Results - Last 24 Hours (Table) 11/03/20 11/03/20 11/04/20 Range/Units 17:08 19:51 06:09 Sodium (137-145) mmol/L Carbon Dioxide (22-30) mmol/L Glucose (74-99) mg/dL POC Glucose (mg/dL) 214 H 263 H 172 H (75-99) mg/dL Calcium (8.4-10.2) mg/dL AST (17-59) U/L ALT (4-49) U/L Total Protein (6.3-8.2) g/dL Albumin (3.5-5.0) g/dL 11/04/20 11/04/20 Range/Units 07:03 11:35 Sodium 136 L (137-145) mmol/L Carbon Dioxide 31 H (22-30) mmol/L Glucose 145 H (74-99) mg/dL POC Glucose (mg/dL) 250 H (75-99) mg/dL Calcium 7.8 L (8.4-10.2) mg/dL AST 162 H (17-59) U/L ALT 67 H (4-49) U/L Total Protein 5.4 L (6.3-8.2) g/dL Albumin 2.8 L (3.5-5.0) g/dL Microbiology - Last 24 Hours (Table) 11/02/20 14:59 Blood Culture - Preliminary Blood No Growth after 24 hours Assessment and Plan Assessment: -Shortness of breath, acute hypoxic respiratory failure secondary to severe healthcare-acquired pneumonia, acute COPD exacerbation -Acute renal failure prerenal azotemia, improving with IV fluid hydration -Hypokalemia and hypomagnesemia these electrolytes will be replaced and the hypokalemia secondary to IV fluids -Mildly elevated troponin secondary to hypoxemia. Troponin trended downwards -Hyponatremia hypovolemic hyponatremia, improved with IV fluid hydration -Interstitial lung disease -Type 2 diabetes mellitus -hypothyroidism -Diabetes mellitus -Gastroesophageal reflux disease -Hyperlipidemia -History of GI bleed Plan: Continue on current medication regime, monitoring and symptomatically treatment. Maintain IV antibiotics, nebulized bronchodilators. Nicotine patch added to med regimen, smoking sensation reinforced. PT/OT consulted. The impression and plan of care has been dictated as directed. : I performed a history and examination of this patient, discussed the same with the dictator. I agree with the dictator's note ,documented as a scribe. Any additional findings or plans will be noted.
[2020-11-04 17:19] LABS: Glucose,Whole Blood 211 mg/dL (75-99)
[2020-11-04] MEDS: HYDROcodone/APAP 10-325MG 1 EACH TAB PO PRN (17:45)
[2020-11-04] MEDS: ALBUTEROL HFA INHALER INHALATION PRN (19:29)
[2020-11-04 21:20] LABS: Glucose,Whole Blood 201 mg/dL (75-99)
[2020-11-05] MEDS: VANCOMYCIN 1,500 MG in SODIUM CHLORIDE 0.9% 250 ML IVPB SCH ×2 (01:17→16:27)
[2020-11-05] MEDS: SODIUM CHLORIDE 0.9% 1,000 ML IV SCH ×2 (05:04→16:27)
[2020-11-05 06:13] LABS: Glucose,Whole Blood 156 mg/dL (75-99)
[2020-11-05] MEDS: LEVOTHYROXINE 50 MCG TAB PO SCH (06:22)
[2020-11-05] MEDS: INSULIN ASPART (NovoLOG) 100 UNIT/ML VIAL SQ SCH ×4 (06:22→21:07)
[2020-11-05] MEDS: HYDROcodone/APAP 10-325MG 1 EACH TAB PO PRN ×2 (06:23→20:29)
[2020-11-05 08:44] LABS: Basophils % (A) 0 %; Eosinophils # (A) 0.2 k/uL (0-0.7); Eosinophils % (A) 2 %; HCT 28.3 % (39.0-53.0); HGB 9.5 gm/dL (13.0-17.5); Lymphocytes # (A) 1.5 k/uL (1.0-4.8); Lymphocytes % (A) 17 %; MCH 30.5 pg (25.0-35.0); MCHC 33.4 g/dL (31.0-37.0); MCV 91.3 fL (80.0-100.0); Mean Platelet Volume 7.3; Monocytes # (A) 0.5 k/uL (0-1.0); Monocytes % (A) 6 %; Neutrophils # (A) 6.3 k/uL (1.3-7.7); Neutrophils % (A) 72 %; Platelet Count 285 k/uL (150-450); RDW 14.4 % (11.5-15.5); WBC 8.8 k/uL (3.8-10.6)
[2020-11-05 09:01] LABS: African American GFR (CKD) >90 (>60 ml/min/1.73 sqM); Anion Gap 2 mmol/L; Blood Urea Nitrogen 13 mg/dL (9-20); Calcium 8.1 mg/dL (8.4-10.2); Carbon Dioxide 31 mmol/L (22-30); Chloride 106 mmol/L (98-107); Glucose 144 mg/dL (74-99); Non-African American GFR(CKD) 84 (>60 ml/min/1.73 sqM); Potassium 3.8 mmol/L (3.5-5.1); Sodium 139 mmol/L (137-145)
[2020-11-05] MEDS: PIPERACILLIN-TAZOBACTAM 3.375 GM in SODIUM CHLORIDE 0.9% 100 ML IVPB SCH ×3 (09:55→23:11)
[2020-11-05] MEDS: NICOTINE 14MG/24HR PATCH TRANSDERM SCH (09:55)
[2020-11-05] MEDS: SYMBICORT 160-4.5 MCG INHALER INHALATION SCH ×2 (09:55→20:14)
[2020-11-05] MEDS: ALBUTEROL HFA INHALER INHALATION PRN (09:55)
[2020-11-05] MEDS: ATORVASTATIN 20 MG TAB PO SCH (09:55)
[2020-11-05] MEDS: GABAPENTIN 100 MG CAP PO SCH ×2 (09:55→20:27)
[2020-11-05] MEDS: TIOTROPIUM 2.5 MCG INHALER INHALATION SCH (09:56)
[2020-11-05] MEDS ORDERED: IPRATROPIUM-ALBUTEROL 3 ML NEB INHALATION PRN (11:09)
--- NOTE | 2020-11-05 11:16 | P.PN ---
Subjective Progress Note Date: 11/05/20 This is a 75-year-old gentleman admitted with acute COPD exacerbation, interstitial lung disease, healthcare acquired pneumonia, acute hypoxic respiratory failure and multiple other medical issues. Maintained on nebulized bronchodilators, Zosyn, vancomycin. Remains off of metformin secondary to her renal failure, renal function improving, creatinine down to 1.01. Blood sugars elevated in the 200s Sodium improving with IV fluid hydration, up to 136. Potassium 3.9, normal magnesium. AST/ALT mildly trending up, T bili within normal limits. Maintaining O2 sats in the high 90s on 3 L nasal cannula. Afebrile. 11/05/2020 breathing improving, oxygen weaned down to 2 L nasal cannula, maintaining O2 sats in the 90s. Maintained on Zosyn, vancomycin. Creatinine down to 0.9.Occasional cough.Complains of mouth discomfort, mostly right lower jaw, secondary to his dentures-state will be bringing him denture cream. Consuming 50% with no nausea vomiting or diarrhea. No abdominal pain. Blood sugars controlled. Afebrile, normal WBC. Objective - Vital Signs Vital signs: Vital Signs Temp 98.3 F 11/05/20 08:20 Pulse 75 11/05/20 08:20 Resp 18 11/05/20 08:20 BP 121/71 11/05/20 08:20 Pulse Ox 97 11/05/20 09:56 Intake & Output 11/04/20 11/05/20 11/05/20 18:59 06:59 18:59 Intake Total 472 476 Output Total 675 350 Balance -203 126 Weight 82.5 kg Intake: Oral 472 476 Output: Urine 675 350 Other: Voiding Method Incontinent Diaper Diaper Incontinent Incontinent # Voids 1 1 - Exam PHYSICAL EXAMINATION: GENERAL: Sitting up in bed, alert and oriented x3, no acute distress, mumbles. Requires assistance with sitting up. HEENT: Pupils are round and equally reacting to light. EOMI. No scleral icterus. No conjunctival pallor. Normocephalic, atraumatic. No pharyngeal erythema. No thyromegaly. CARDIOVASCULAR: S1 and S2 present. No murmurs, rubs, or gallops. PULMONARY: Chest is clear to auscultation, scattered rhonchi ABDOMEN: Soft, nontender, nondistended, normoactive bowel sounds. No palpable organomegaly. MUSCULOSKELETAL: No joint swelling or deformity. EXTREMITIES: No cyanosis, clubbing, or pedal edema. NEUROLOGICAL: Gross neurological examination did not reveal any focal deficits. SKIN: No rashes. - Labs CBC & Chem 7: 11/05/20 07:55 11/05/20 07:55 Labs: Abnormal Lab Results - Last 24 Hours (Table) 11/04/20 11/04/20 11/04/20 Range/Units 11:35 17:16 21:17 RBC (4.30-5.90) m/uL Hgb (13.0-17.5) gm/dL Hct (39.0-53.0) % Carbon Dioxide (22-30) mmol/L Glucose (74-99) mg/dL POC Glucose (mg/dL) 250 H 211 H 201 H (75-99) mg/dL Calcium (8.4-10.2) mg/dL 11/05/20 11/05/20 11/05/20 Range/Units 06:12 07:55 07:55 RBC 3.10 L (4.30-5.90) m/uL Hgb 9.5 L (13.0-17.5) gm/dL Hct 28.3 L (39.0-53.0) % Carbon Dioxide 31 H (22-30) mmol/L Glucose 144 H (74-99) mg/dL POC Glucose (mg/dL) 156 H (75-99) mg/dL Calcium 8.1 L (8.4-10.2) mg/dL Microbiology - Last 24 Hours (Table) 11/02/20 14:59 Blood Culture - Preliminary Blood No Growth after 48 hours Assessment and Plan Assessment: -Shortness of breath, acute hypoxic respiratory failure secondary to severe healthcare-acquired pneumonia, acute COPD exacerbation -Acute renal failure prerenal azotemia, improving with IV fluid hydration -Hypokalemia and hypomagnesemia these electrolytes will be replaced and the hypokalemia secondary to IV fluids -Mildly elevated troponin secondary to hypoxemia. Troponin trended downwards -Hyponatremia hypovolemic hyponatremia, improved with IV fluid hydration -Interstitial lung disease -Type 2 diabetes mellitus -hypothyroidism -Diabetes mellitus -Gastroesophageal reflux disease -Hyperlipidemia -History of GI bleed Plan: Continue on current medication regime, monitoring and symptomatically treatment. Lidocaine section swallow for mouth pain secondary to dentures- to bring in denture cream. Continue IV antibiotics, nebulized bronchodilators. Close monitoring of renal function, electrolytes, hemoglobin with repeat labs ordered for a.m. Smoking sensation reinforced. PT/OT. Discharge planning in progress for subacute rehab, possibly tomorrow, pending pulmonary clearance and final DC recommendations. The impression and plan of care has been dictated as directed. : I performed a history and examination of this patient, discussed the same with the dictator. I agree with the dictator's note ,documented as a scribe. Any ad ditional findings or plans will be noted.
[2020-11-05 12:34] LABS: Glucose,Whole Blood 213 mg/dL (75-99)
[2020-11-05] MEDS: PANTOPRAZOLE 40 MG/10 ML VIAL IVP SCH (12:41)
[2020-11-05] MEDS: IPRATROPIUM-ALBUTEROL 3 ML NEB INHALATION SCH ×3 (12:47→20:14)
[2020-11-05] MEDS ORDERED: VANCOMYCIN TROUGH DUE 1 EACH MISC MISCELLANE ONE (13:00)
[2020-11-05 13:59] LABS: African American GFR (CKD) >90 (>60 ml/min/1.73 sqM); Non-African American GFR(CKD) 80 (>60 ml/min/1.73 sqM)
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
[2020-11-05] MEDS ORDERED: HALOPERIDOL LACTATE 5 MG/ML 1 ML VIAL IVP PRN (15:17)
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
[2020-11-05] MEDS: MAG HYDROX/AL HYDROX/SIMETH 30 ML, LIDOCAINE VISCOUS 30 ML, NYSTATIN 100,000 UNIT/ML SU... PO SCH ×6 (16:36→20:27)
[2020-11-05 16:49] LABS: Glucose,Whole Blood 262 mg/dL (75-99)
[2020-11-05] MEDS: QUEtiapine 50 MG TAB PO SCH (20:27)
[2020-11-05 20:49] LABS: Glucose,Whole Blood 254 mg/dL (75-99)
--- NOTE | 2020-11-05 21:37 | XR ---
EXAMINATION TYPE: XR chest 1V DATE OF EXAM: 11/05/2020 COMPARISON: 11/02/2020. HISTORY: Shortness of breath. TECHNIQUE: Single frontal view of the chest is obtained. FINDINGS: There is slight increase of bibasilar opacities, mild to moderate on the left and minimal on the right. There is probable trace left pleural effusion. No pneumothorax seen. The cardiac silho uette size is within normal limits. The osseous structures are intact. IMPRESSION: Increased bibasilar opacities.
[2020-11-05 23:20] LABS: Glucose,Whole Blood 200 mg/dL (75-99)
--- NOTE | 2020-11-05 23:58 | CT ---
EXAMINATION TYPE: CT brain wo con for TPA DATE OF EXAM: 11/05/2020 COMPARISON: 07/15/2019 HISTORY: Weakness CT DLP: Code stroke mGycm Automated exposure control for dose reduction was used. There is cerebral cortical atrophy. There is patchy hypodensity in the periventricular white matter. There is no mass effect nor midline shift. There is no sign of intracranial hemorrhage. There is no p neumatization of the mastoid sinuses. The calvarium is intact. IMPRESSION: Cerebral atrophy and chronic small vessel ischemia. No acute intracranial abnormality. No change.
--- NOTE | 2020-11-06 00:05 | CT ---
EXAMINATION TYPE: CT angio head neck DATE OF EXAM: 11/05/2020 COMPARISON: None HISTORY: Code stroke CT DLP: 1658.7 mGycm Automated exposure control for dose reduction was used. CONTRAST: Performed with IV Contrast, patient injected with 65 mL of Isovue 370. There are 3-D post processed images. Images were obtained from the aortic arch to the vertex of the b rain with IV contrast. FINDINGS: There is normal branching pattern of the great vessels on the aortic arch. There is bilateral arteria l flow in the subclavian arteries. There is arterial flow in the common carotid arteries. There is co mplete occlusion of the left internal carotid artery. There is some plaque formation at the left graham tid artery bifurcation. No significant stenosis seen of the left external carotid artery. There is some tortuosity of the right internal carotid artery. There is some plaque formation at the right carotid artery bifurcation and lumen narrowing less than 20%. There is arterial flow in both vertebral arteries. Left vertebral artery is much larger than the righ t. There is arterial flow in the vertebrobasilar artery system. Basilar artery appears to fill mostly from the left side. There is arterial flow in the anterior middle and posterior cerebral artery. The left middle cerebral artery and left anterior cerebral artery appear to fill through the posterior communicating artery a nd the anterior communicating artery. I see no evidence of intracranial aneurysm or neovascularity. T here is no mass effect. There is normal contrast opacification of the venous sinuses. I see no eviden ce of intracranial arterial stenosis. 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 There is m inimal plaque formation and no evidence of hemodynamic stenosis of the right internal carotid artery.
[2020-11-06 00:17] LABS: Basophils % (A) 0 %; Eosinophils # (A) 0.1 k/uL (0-0.7); Eosinophils % (A) 2 %; HCT 27.9 % (39.0-53.0); HGB 9.2 gm/dL (13.0-17.5); Lymphocytes # (A) 1.3 k/uL (1.0-4.8); Lymphocytes % (A) 17 %; MCH 30.2 pg (25.0-35.0); MCV 91.5 fL (80.0-100.0); Mean Platelet Volume 8.2; Monocytes # (A) 0.6 k/uL (0-1.0); Monocytes % (A) 7 %; Neutrophils # (A) 5.5 k/uL (1.3-7.7); Neutrophils % (A) 71 %; Platelet Count 294 k/uL (150-450); RBC 3.05 m/uL (4.30-5.90); RDW 14.3 % (11.5-15.5); WBC 7.8 k/uL (3.8-10.6)
[2020-11-06 00:19] LABS: Albumin 2.7 g/dL (3.5-5.0); Calcium 8.1 mg/dL (8.4-10.2); Potassium 3.6 mmol/L (3.5-5.1); Total Bilirubin 0.4 mg/dL (0.2-1.3); Total Protein 5.4 g/dL (6.3-8.2)
[2020-11-06 00:30] LABS: INR 0.9 (<1.2); Prothrombin Time 10.1 sec (9.0-12.0)
[2020-11-06] MEDS ORDERED: ATORVASTATIN 40 MG TAB PO STA (00:59)
[2020-11-06] MEDS ORDERED: CLOPIDOGREL 75 MG TAB PO STA (00:59)
[2020-11-06] MEDS: SODIUM CHLORIDE 0.9% 1,000 ML IV SCH ×3 (01:12→21:22)
[2020-11-06] MEDS: VANCOMYCIN 1,500 MG in SODIUM CHLORIDE 0.9% 250 ML IVPB SCH ×2 (01:12→15:07)
[2020-11-06 06:21] LABS: Glucose,Whole Blood 128 mg/dL (75-99)
[2020-11-06] MEDS: INSULIN ASPART (NovoLOG) 100 UNIT/ML VIAL SQ SCH ×4 (06:22→21:22)
[2020-11-06] MEDS: LEVOTHYROXINE 50 MCG TAB PO SCH (06:24)
[2020-11-06 08:00] LABS: Basophils % (A) 0 %; Eosinophils # (A) 0.2 k/uL (0-0.7); Eosinophils % (A) 3 %; HCT 26.8 % (39.0-53.0); HGB 8.8 gm/dL (13.0-17.5); Lymphocytes # (A) 1.6 k/uL (1.0-4.8); Lymphocytes % (A) 21 %; MCV 90.9 fL (80.0-100.0); Mean Platelet Volume 7.2; Monocytes # (A) 0.5 k/uL (0-1.0); Monocytes % (A) 7 %; Neutrophils % (A) 66 %; Platelet Count 311 k/uL (150-450); RBC 2.95 m/uL (4.30-5.90); RDW 14.4 % (11.5-15.5); WBC 7.5 k/uL (3.8-10.6)
[2020-11-06 08:14] LABS: African American GFR (CKD) >90 (>60 ml/min/1.73 sqM); Anion Gap 1 mmol/L; Blood Urea Nitrogen 11 mg/dL (9-20); Calcium 8.1 mg/dL (8.4-10.2); Carbon Dioxide 30 mmol/L (22-30); Chloride 108 mmol/L (98-107); Glucose 133 mg/dL (74-99); Non-African American GFR(CKD) 84 (>60 ml/min/1.73 sqM); Potassium 3.7 mmol/L (3.5-5.1); Sodium 139 mmol/L (137-145)
[2020-11-06] MEDS: SYMBICORT 160-4.5 MCG INHALER INHALATION SCH ×2 (09:05→20:45)
[2020-11-06] MEDS: IPRATROPIUM-ALBUTEROL 3 ML NEB INHALATION SCH ×4 (09:05→20:45)
[2020-11-06] MEDS: TIOTROPIUM 2.5 MCG INHALER INHALATION SCH (09:06)
[2020-11-06] MEDS: PIPERACILLIN-TAZOBACTAM 3.375 GM in SODIUM CHLORIDE 0.9% 100 ML IVPB SCH ×3 (10:39→22:57)
[2020-11-06] MEDS: ATORVASTATIN 20 MG TAB PO SCH (10:40)
[2020-11-06] MEDS: GABAPENTIN 100 MG CAP PO SCH ×2 (10:40→21:22)
[2020-11-06] MEDS: CLOPIDOGREL 75 MG TAB PO SCH (10:41)
[2020-11-06] MEDS: NICOTINE 14MG/24HR PATCH TRANSDERM SCH (10:41)
[2020-11-06] MEDS: MAG HYDROX/AL HYDROX/SIMETH 30 ML, LIDOCAINE VISCOUS 30 ML, NYSTATIN 100,000 UNIT/ML SU... PO SCH ×9 (10:41→21:22)
[2020-11-06] MEDS: PANTOPRAZOLE 40 MG/10 ML VIAL IVP SCH (10:41)
[2020-11-06] MEDS: HYDROcodone/APAP 10-325MG 1 EACH TAB PO PRN ×2 (10:47→21:26)
[2020-11-06 11:53] LABS: Glucose,Whole Blood 274 mg/dL (75-99)
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
--- NOTE | 2020-11-06 16:52 | P.PN ---
Subjective Progress Note Date: 11/06/20 This is a 75-year-old gentleman admitted with acute COPD exacerbation, interstitial lung disease, healthcare acquired pneumonia, acute hypoxic respiratory failure and multiple other medical issues. Maintained on nebulized bronchodilators, Zosyn, vancomycin. Remains off of metformin secondary to her renal failure, renal function improving, creatinine down to 1.01. Blood sugars elevated in the 200s Sodium improving with IV fluid hydration, up to 136. Potassium 3.9, normal magnesium. AST/ALT mildly trending up, T bili within normal limits. Maintaining O2 sats in the high 90s on 3 L nasal cannula. Afebrile. 11/05/2020 breathing improving, oxygen weaned down to 2 L nasal cannula, maintaining O2 sats in the 90s. Maintained on Zosyn, vancomycin. Creatinine down to 0.9.Occasional cough.Complains of mouth discomfort, mostly right lower jaw, secondary to his dentures-state will be bringing him denture cream. Consuming 50% with no nausea vomiting or diarrhea. No abdominal pain. Blood sugars controlled. Afebrile, normal WBC. 11/06/20 Yesterday confusion worsened accompanied by left-sided weakness, questionable dysarthria, code stroke called, neurology workup initiated with ne urology consulted. Brain CT reported no acute intracranial abnormality. CTA reported thrombosis of the entire left internal carotid artery up to the [place], no evidence of hemodynamic stenosis of the right internal carotid artery. Slept well. This morning feels much better. Speech mumbled as previously, left-sided weakness resolved. Continues on vancomycin and Zosyn. Sitting up in chair with congestive cough, maintaining O2 sats in the high 90s on 3 L nasal cannula. Afebrile. Objective - Vital Signs Vital signs: Vital Signs Temp 98.4 F 11/06/20 11:03 Pulse 69 11/06/20 11:38 Resp 18 11/06/20 11:03 BP 100/55 11/06/20 11:03 Pulse Ox 98 11/06/20 11:03 Intake & Output 11/05/20 11/06/20 11/06/20 18:59 06:59 18:59 Intake Total 1190 240 472 Output Total 1450 550 Balance -260 -310 472 Weight 83.5 kg Intake: Intake, IV Titration 350 Amount Piperacillin-Tazobactam 3 100 .375 gm In Sodium Chloride 0.9% 100 ml @ 25 mls/hr IVPB Q8HR [facility] Rx# :[id number] Vancomycin 1,500 mg In 250 Sodium Chloride 0.9% 250 ml @ 125 mls/hr IVPB Q12H [facility] Rx#:[id number] Oral 840 240 472 Output: Urine 1450 550 Other: Voiding Method Diaper Urinal Urinal Incontinent Diaper Diaper Incontinent Incontinent # Voids 1 1 1 # Bowel Movements 0 1 - Exam PHYSICAL EXAMINATION: GENERAL: Sitting up in bed, alert and oriented x3, no acute distress, mumbles. HEENT: Pupils are round and equally reacting to light. EOMI. No scleral icterus. No conjunctival pallor. Normocephalic, atraumatic. No pharyngeal erythema. No thyromegaly. CARDIOVASCULAR: S1 and S2 present. No murmurs, rubs, or gallops. PULMONARY: Chest is clear to auscultation, scattered rhonchi ABDOMEN: Soft, nontender, nondistended, normoactive bowel sounds. No palpable organomegaly. MUSCULOSKELETAL: No joint swelling or deformity. EXTREMITIES: No cyanosis, clubbing, or pedal edema. NEUROLOGICAL: Gross neurological examination did not reveal any focal deficits. SKIN: Warm and dry, No rashes. - Labs CBC & Chem 7: 11/06/20 07:22 11/06/20 07:22 Labs: Abnormal Lab Results - Last 24 Hours (Table) 11/05/20 11/05/20 11/05/20 Range/Units 16:42 20:46 23:17 RBC (4.30-5.90) m/uL Hgb (13.0-17.5) gm/dL Hct (39.0-53.0) % APTT (22.0-30.0) sec Chloride (98-107) mmol/L Glucose (74-99) mg/dL POC Glucose (mg/dL) 262 H 254 H 200 H (75-99) mg/dL Calcium (8.4-10.2) mg/dL AST (17-59) U/L ALT (4-49) U/L Alkaline Phosphatase (38-126) U/L Total Protein (6.3-8.2) g/dL Albumin (3.5-5.0) g/dL 11/05/20 11/05/20 11/05/20 Range/Units 23:56 23:56 23:56 RBC 3.05 L (4.30-5.90) m/uL Hgb 9.2 L (13.0-17.5) gm/dL Hct 27.9 L (39.0-53.0) % APTT 21.0 L (22.0-30.0) sec Chloride (98-107) mmol/L Glucose 173 H (74-99) mg/dL POC Glucose (mg/dL) (75-99) mg/dL Calcium 8.1 L (8.4-10.2) mg/dL AST 113 H (17-59) U/L ALT 78 H (4-49) U/L Alkaline Phosphatase 145 H (38-126) U/L Total Protein 5.4 L (6.3-8.2) g/dL Albumin 2.7 L (3.5-5.0) g/dL 11/06/20 11/06/20 11/06/20 Range/Units 06:13 07:22 07:22 RBC 2.95 L (4.30-5.90) m/uL Hgb 8.8 L (13.0-17.5) gm/dL Hct 26.8 L (39.0-53.0) % APTT (22.0-30.0) sec Chloride 108 H (98-107) mmol/L Glucose 133 H (74-99) mg/dL POC Glucose (mg/dL) 128 H (75-99) mg/dL Calcium 8.1 L (8.4-10.2) mg/dL AST (17-59) U/L ALT (4-49) U/L Alkaline Phosphatase (38-126) U/L Total Protein (6.3-8.2) g/dL Albumin (3.5-5.0) g/dL 11/06/20 Range/Units 11:51 RBC (4.30-5.90) m/uL Hgb (13.0-17.5) gm/dL Hct (39.0-53.0) % APTT (22.0-30.0) sec Chloride (98-107) mmol/L Glucose (74-99) mg/dL POC Glucose (mg/dL) 274 H (75-99) mg/dL Calcium (8.4-10.2) mg/dL AST (17-59) U/L ALT (4-49) U/L Alkaline Phosphatase (38-126) U/L Total Protein (6.3-8.2) g/dL Albumin (3.5-5.0) g/dL Microbiology - Last 24 Hours (Table) 11/02/20 14:59 Blood Culture - Preliminary Blood No Growth after 72 hours Assessment and Plan Assessment: -Acute hypoxic respiratory failure secondary to severe healthcare-acquired pneumonia, acute COPD exacerbation -Acute renal failure prerenal azotemia, improving with IV fluid hydration -Dysarthria, appears unchanged from admission, possible CVA, neurology consulted -Left carotid stenosis -Hypokalemia and hypomagnesemia these electrolytes will be replaced and the hypokalemia secondary to IV fluids -Mildly elevated troponin secondary to hypoxemia. Troponin trended downwards -Hyponatremia hypovolemic hyponatremia, improved with IV fluid hydration -Interstitial lung disease -Type 2 diabetes mellitus -hypothyroidism -Diabetes mellitus -Gastroesophageal reflux disease -Hyperlipidemia -History of GI bleed Plan: Continue on current medication regime, monitoring and symptomatically treatment. Neurology consult in place, continues on Plavix and Lipitor. Continue IV antibiotics, nebulized bronchodilators. Smoking sensation reinforced. PT/OT. Discharge planning in progress for subacute rehab. The impression and plan of care has been dictated as directed. : I performed a history and examination of this patient, discussed the same with the dictator. I agree with the dictator's note ,documented as a scribe. Any additional findings or plans will be noted.
[2020-11-06 17:19] LABS: Glucose,Whole Blood 232 mg/dL (75-99)
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
[2020-11-06 20:52] LABS: Glucose,Whole Blood 267 mg/dL (75-99)
[2020-11-06] MEDS: QUEtiapine 50 MG TAB PO SCH (21:22)
[2020-11-07] MEDS: VANCOMYCIN 1,500 MG in SODIUM CHLORIDE 0.9% 250 ML IVPB SCH (01:04)
[2020-11-07 06:11] LABS: Glucose,Whole Blood 139 mg/dL (75-99)
[2020-11-07] MEDS: LEVOTHYROXINE 50 MCG TAB PO SCH (06:24)
[2020-11-07] MEDS: HYDROcodone/APAP 10-325MG 1 EACH TAB PO PRN (06:24)
[2020-11-07] MEDS: INSULIN ASPART (NovoLOG) 100 UNIT/ML VIAL SQ SCH ×2 (06:24→12:39)
[2020-11-07] MEDS: SODIUM CHLORIDE 0.9% 1,000 ML IV SCH (06:26)
[2020-11-07 08:16] LABS: African American GFR (CKD) >90 (>60 ml/min/1.73 sqM); Anion Gap 1 mmol/L; Blood Urea Nitrogen 13 mg/dL (9-20); Calcium 8.1 mg/dL (8.4-10.2); Carbon Dioxide 30 mmol/L (22-30); Chloride 112 mmol/L (98-107); Cholesterol 100 mg/dL (<200); Glucose 132 mg/dL (74-99); HDL Cholesterol 34 mg/dL (40-60); LDL Cholesterol,Calculated 43 mg/dL (0-99); Non-African American GFR(CKD) 81 (>60 ml/min/1.73 sqM); Potassium 3.9 mmol/L (3.5-5.1); Sodium 143 mmol/L (137-145); Triglycerides 114 mg/dL (<150)
[2020-11-07] MEDS: IPRATROPIUM-ALBUTEROL 3 ML NEB INHALATION SCH ×2 (09:25→13:10)
[2020-11-07] MEDS: SYMBICORT 160-4.5 MCG INHALER INHALATION SCH (09:25)
[2020-11-07] MEDS: TIOTROPIUM 2.5 MCG INHALER INHALATION SCH (09:26)
--- NOTE | 2020-11-07 10:50 | ECHOF ---
Referral Reason:TIA/CVA MEASUREMENTS -------- HEIGHT: 180.3 cm WEIGHT: 84.4 kg BP: 109/62 RVIDd: 2.8 cm (< 3.3) IVSd: 0.9 cm (0.6 - 1.1) LVIDd: 4.3 cm (3.9 - 5.3) LVPWd: 1.1 cm (0.6 - 1.1) IVSs: 1.5 cm LVIDs: 2.6 cm LVPWs: 2.0 cm Ao Diam: 3.3 cm (2.0 - 3.7) AV Cusp: 1.9 cm (1.5 - 2.6) LA Diam: 3.4 cm (2.7 - 3.8) MV EXCURSION: 15.618 mm (> 18.000) MV EF SLOPE: 98 mm/s (70 - 150) EPSS: 0.6 cm MV E Christian: 0.98 m/s MV DecT: 195 ms MV A Christian: 1.00 m/s MV E/A Ratio: 0.98 RAP: 5.00 mmHg RVSP: 47.50 mmHg FINDINGS -------- This was a technically adequate study. The left ventricular size is normal. Left ventricular wall thickness is normal. Overall left vent ricular systolic function is normal with, an EF between 55 - 60 %. The right ventricle is normal in size. The left atrial size is normal. The right atrial size is normal. Contrast study was performed with 1 iv injection of 8 ccs of agitated normal saline at rest. Bubble study to rule out shunt. No shunt seen. The aortic valve is trileaflet and appears structurally normal. The mitral valve is normal. There is trace mitral regurgitation. The tricuspid valve appears structurally normal. Mild tricuspid regurgitation present. There is m ild pulmonary hypertension. The right ventricular systolic pressure, as measured by Doppler, is 47. 50mmHg. There is no pulmonic regurgitation present. The aortic root size is normal. IVC Not well visulized. There is no pericardial effusion. CONCLUSIONS -------- 1. The left ventricular size is normal. 2. Left ventricular wall thickness is normal. 3. Overall left ventricular systolic function is normal with, an EF between 55 - 60 %. 4. Contrast study was performed with 1 iv injection of 8 ccs of agitated normal saline at rest. 5. Bubble study to rule out shunt. No shunt seen. 6. There is trace mitral regurgitation. 7. Mild tricuspid regurgitation present. 8. There is mild pulmonary hypertension. 9. The right ventricular systolic pressure, as measured by Doppler, is 47.50mmHg. 10. There is no pericardial effusion. ALLERGY AND IMMUNOLOGY SPECIALIST: Parisa Gillespie RDCS
[2020-11-07] MEDS: PIPERACILLIN-TAZOBACTAM 3.375 GM in SODIUM CHLORIDE 0.9% 100 ML IVPB SCH (11:01)
[2020-11-07] MEDS: NICOTINE 14MG/24HR PATCH TRANSDERM SCH (11:02)
[2020-11-07] MEDS: CLOPIDOGREL 75 MG TAB PO SCH (11:02)
[2020-11-07] MEDS: ATORVASTATIN 20 MG TAB PO SCH (11:02)
[2020-11-07] MEDS: GABAPENTIN 100 MG CAP PO SCH (11:02)
[2020-11-07] MEDS: PANTOPRAZOLE 40 MG/10 ML VIAL IVP SCH (11:03)
[2020-11-07] MEDS: MAG HYDROX/AL HYDROX/SIMETH 30 ML, LIDOCAINE VISCOUS 30 ML, NYSTATIN 100,000 UNIT/ML SU... PO SCH ×3 (11:03)
--- NOTE | 2020-11-07 11:35 | P.DS ---
Providers Date of admission: 11/02/20 17:39 Expected date of discharge: 11/07/20 Attending physician: Heber Wright MD Consults: 11/02/20 17:39 Consult Physician Urgent Consulting Provider: Keon Avila Consult Reason/Comments: acute hypoxic resp failure, aecopd, HCAP Do you want consulting provider notified?: Yes 11/06/20 00:27 Consult Physician Urgent Consulting Provider: Becky Patel Consult Reason/Comments: Code Stroke Do you want consulting provider notified?: Yes, Notify in am Primary care physician: Nadia Fox [facility] Course: Final Diagnoses: -Acute hypoxic respiratory failure secondary to severe healthcare-acquired pneumonia, acute COPD exacerbation -Acute renal failure prerenal azotemia, improving with IV fluid hydration -Possible TIA, symptoms resolved ,neurology following -Delirium, Acute metabolic encephalopathy, multifactorial, secondary to all the above, sleep deprivation from being in hospital -Left carotid stenosis, outpatient monitoring recommended -Hypokalemia -Hypomagnesemia -Mildly elevated troponin secondary to hypoxemia. Troponin trended downwards -Hyponatremia hypovolemic, improved with IV fluid hydration -Interstitial lung disease -Type 2 diabetes mellitus -hypothyroidism -Diabetes mellitus -Gastroesophageal reflux disease -Hyperlipidemia -History of GI bleed Hospital course:This is a 75-year-old gentleman admitted with acute COPD exacerbation, interstitial lung disease, healthcare acquired pneumonia, acute hypoxic respiratory failure and multiple other medical issues. Maintained on nebulized bronchodilators, Zosyn, vancomycin. Remains off of metformin secondary to her renal failure, renal function improving, creatinine down to 1.01. Blood sugars elevated in the 200s Sodium improving with IV fluid hydration, up to 136. Potassium 3.9, normal magnesium. AST/ALT mildly trending up, T bili within normal limits. Maintaining O2 sats in the high 90s on 3 L nasal cannula. Afebrile. 11/05/2020 breathing improving, oxygen weaned down to 2 L nasal cannula, maintaining O2 sats in the 90s. Maintained on Zosyn, vancomycin. Creatinine down to 0.9.Occasional cough.Complains of mouth discomfort, mostly right lower jaw, secondary to his dentures-state will be bringing him denture cream. Consuming 50% with no nausea vomiting or diarrhea. No abdominal pain. Blood sugars controlled. Afebrile, normal WBC. 11/06/20 Yesterday confusion worsened accompanied by left-sided weakness, questionable dysarthria, code stroke called, neurology workup initiated with neurology consulted. Brain CT reported no acute intracranial abnormality. CTA reported thrombosis of the entire left internal carotid artery up to the [place], no evidence of hemodynamic stenosis of the right internal carotid artery. Slept well. This morning feels much better. Speech mumbled as previously, left-sided weakness resolved. Continues on vancomycin and Zosyn. Sitting up in chair with congestive cough, maintaining O2 sats in the high 90s on 3 L nasal cannula. Afebrile. Evaluated yesterday by a neurology, symptoms resolved; patient mumbles but no dysarthria, no aphasia. A & O 3. Maintained on Plavix for stroke prevention. Smoking cessation reinforced. 2-D echo with bubble study to rule out PFO pending. Patient will be discharged today to subacute rehab in a stable condition with guarded prognosis pending pulmonary clearance, echo results. The impression and plan of care has been dictated as directed. : I performed a history and examination of this patient, discussed the same with the dictator. I agree with the dictator's note ,documented as a scribe. Any additional findings or plans will be noted. Patient Condition at Discharge: Stable Plan - Discharge Summary Discharge Rx Participant: No New Discharge Prescriptions: New Ipratropium-Albuterol Nebulize [Duoneb 0.5 mg-3 mg/3 ml Soln] 3 ml INHALATION RT-QID ml Ipratropium-Albuterol Nebulize [Duoneb 0.5 mg-3 mg/3 ml Soln] 3 ml INHALATION Q4H PRN ml PRN Reason: Shortness Of Breath Or Wheezing Nicotine 14Mg/24Hr Patch [Habitrol] 1 patch TRANSDERM DAILY patch Mag Hydrox/Al Hydrox/Simeth [Maalox] 30 ml PO TID ml Gabapentin [Neurontin] 200 mg PO BID #12 cap HYDROcodone/APAP 10-325MG [[place] 10-325] 1 each PO Q6H PRN #12 tab PRN Reason: Pain Clopidogrel [Plavix] 75 mg PO DAILY tab QUEtiapine [SEROquel] 50 mg PO HS tab Tiotropium 2.5 Mcg/Puff [Spiriva Respimat 2.5 Mcg] 2 puff INHALATION RT-DAILY puff Albuterol Inhaler [Ventolin Hfa Inhaler] 2 puff INHALATION RT-QID PRN puff PRN Reason: Shortness Of Breath Or Wheezing Lidocaine Viscous [Xylocaine Viscous 2%] 30 ml PO TID ml INSULIN LISPRO (HumaLOG) [humaLOG] 0 unit SQ ACHS #1 vial Continue metFORMIN HCL 1,000 mg PO BID Atorvastatin Calcium [Lipitor] 20 mg PO DAILY Levothyroxine Sodium [Synthroid] 50 mcg PO DAILY Budesonide-Formot 160-4.5 Mcg [Symbicort 160-4.5 Mcg Inhaler] 2 puff INHALATION RT-BID #1 puff Discontinued HYDROcodone/APAP 10-325MG [[place] 10-325] 1 tab PO QID PRN PRN Reason: Pain Gabapentin [Neurontin] 300 mg PO BID Discharge Medication List metFORMIN HCL 1,000 mg PO BID 09/16/16 [History] Atorvastatin Calcium [Lipitor] 20 mg PO DAILY 10/12/20 [History] Levothyroxine Sodium [Synthroid] 50 mcg PO DAILY 10/12/20 [History] Budesonide-Formot 160-4.5 Mcg [Symbicort 160-4.5 Mcg Inhaler] 2 puff INHALATION RT-BID #1 puff 10/14/20 [Rx] Albuterol Inhaler [Ventolin Hfa Inhaler] 2 puff INHALATION RT-QID PRN puff 11/07/20 [Rx] Clopidogrel [Plavix] 75 mg PO DAILY tab 11/07/20 [Rx] Gabapentin [Neurontin] 200 mg PO BID #12 cap 11/07/20 [Rx] HYDROcodone/APAP 10-325MG [[place] 10-325] 1 each PO Q6H PRN #12 tab 11/07/20 [Rx] INSULIN LISPRO (HumaLOG) [humaLOG] 0 unit SQ ACHS #1 vial 11/07/20 [Rx] Ipratropium-Albuterol Nebulize [Duoneb 0.5 mg-3 mg/3 ml Soln] 3 ml INHALATION Q4H PRN ml 11/07/20 [Rx] Ipratropium-Albuterol Nebulize [Duoneb 0.5 mg-3 mg/3 ml Soln] 3 ml INHALATION RT-QID ml 11/07/20 [Rx] Lidocaine Viscous [Xylocaine Viscous 2%] 30 ml PO TID ml 11/07/20 [Rx] Mag Hydrox/Al Hydrox/Simeth [Maalox] 30 ml PO TID ml 11/07/20 [Rx] Nicotine 14Mg/24Hr Patch [Habitrol] 1 patch TRANSDERM DAILY patch 11/07/20 [Rx] QUEtiapine [SEROquel] 50 mg PO HS tab 11/07/20 [Rx] Tiotropium 2.5 Mcg/Puff [Spiriva Respimat 2.5 Mcg] 2 puff INHALATION RT-DAILY puff 11/07/20 [Rx] Follow up Appointment(s)/Referral(s): Nadia Fox DO [Primary Care Provider] - 1 Week (after dc from ECF) Activity/Diet/Wound Care/Special Instructions: Joss PAGE,BMP in 3 days 3lnc Discharge Disposition: HOME WITH HOME HEALTH SERVICES
--- NOTE | 2020-11-07 11:48 | CDI ---
Documentation Clarification Form Date: 11/07/2020 11:45 AM CDS: Myra JuniorDANIELE, CCDS Admit Date: 11/02/2020 17:39 Patient Name: Fredy Camacho V Discharge Date: ATTENTION: The Clinical Documentation Specialists (CDI) and [facility] Coding Staff appreciate your assistance in clarifying documentation. Please respond to the clarification below the line at the bottom and electronically sign. The CDI & [facility] Coding staff will review the response and follow-up if needed. Please note: Queries are made part of the Legal Health Record. If you have any questions, please contact the author of this message via ITS. Dear Dr. Becky Patel: Anemia is documented in the 11/06 Neurology Consult without further specificity. History/Risk Factors: COPD, IDDM II, Hypertension, GERD, Hypothyroid, Lower GI bleed. Smoker. Clinical indicators: Presented to the ED on 11/02 with SOB via EMS. Admit with COPD, Healthcare Acquired Pneumonia & GRIS. the patient was recently admitted with pneumonia. Home meds: Synthroid, INH Symbicort, Lipitor, INH Spiriva, Seroquel, Habitrol, INH Duoneb, Insulin sq, Neurontin, Plavix, INH Albuterol. Hemoglobin 11/02: 12.1. 11/03: 10.9*. 11/05: 9.5* - 9.2*. 11.06: 8.8* Hematocrit 11/02: 35.0*. 11/03: 32.4*. 11/05: 28.3* - 27.9*. 11/06: 26.8* Treatment: IV fluid bolus 1,000 mls @ 999 mls/hr q1H, IV Zosyn, IV Kcl, IV Vancomycin, IV Heparin, INH Ventolin, INH Spiriva, INH Symbicort, INH Duoneb, Insulin sq, IV MagSulfate, IV Haldol, O2 3-4Lnc. In order to capture the severity of condition, please clarify the type of anemia and etiology if known:. Acute blood loss anemia Acute on chronic blood loss anemia Chronic blood loss anemia Iron deficiency anemia Drug induced anemia Nutritional anemia Anemia of Chronic Disease, please specify: Unable to determine Other, please specify (Last Form Revision: December 2019) Patient has B12 deficiency noted on the test which may be the cause. For any additional causes please check with patient's IM/PCP MTDD
[2020-11-07 12:03] LABS: Glucose,Whole Blood 204 mg/dL (75-99)
[2020-11-07 12:09] VITALS: RESP 18
[2020-11-07] MEDS ORDERED: VANCOMYCIN TROUGH DUE 1 EACH MISC MISCELLANE ONE (13:00)
[2020-11-07 13:05] VITALS: BP 134/65; TEMP 98.6
[2020-11-07 13:41] VITALS: BMI 26.7
[2020-11-07] MEDS ORDERED: VANCOMYCIN 1,250 MG in SODIUM CHLORIDE 0.9% 250 ML IVPB SCH (14:00)
[2020-11-07 14:15] LABS: Hemoglobin A1C 9.3 % (4.0-6.0)
[2020-11-07 14:18] VITALS: PULSE 68
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
[2020-11-07 16:26] LABS: Folate, Serum 4.6 ng/mL
== END 2020-11-07 14:32 | DRG 871 ==
LOC: EC 13:39 → 3SCARD 17:39
PROVIDERS: ADMIT Family Medicine; ATTEND Family Medicine
DX: A41.9 Sepsis, unspecified organism (principal); J18.9 Pneumonia, unspecified organism; J96.01 Acute respiratory failure with hypoxia; G93.41 Metabolic encephalopathy; J44.1 Chronic obstructive pulmonary disease with (acute) exacerbation; J44.0 Chronic obstructive pulmonary disease with (acute) lower respiratory infection; N17.9 Acute kidney failure, unspecified; J98.11 Atelectasis; E87.2 Acidosis; E87.1 Hypo-osmolality and hyponatremia; G45.9 Transient cerebral ischemic attack, unspecified; G81.94 Hemiplegia, unspecified affecting left nondominant side; F05 Delirium due to known physiological condition; R65.20 Severe sepsis without septic shock; Z20.822 Contact with and (suspected) exposure to COVID-19; E11.9 Type 2 diabetes mellitus without complications; J84.10 Pulmonary fibrosis, unspecified; R47.1 Dysarthria and anarthria; E83.42 Hypomagnesemia; E87.6 Hypokalemia; Y95 Nosocomial condition; E86.1 Hypovolemia; D51.9 Vitamin B12 deficiency anemia, unspecified; I65.22 Occlusion and stenosis of left carotid artery; I10 Essential (primary) hypertension; E78.5 Hyperlipidemia, unspecified; K21.9 Gastro-esophageal reflux disease without esophagitis; E03.9 Hypothyroidism, unspecified; G89.29 Other chronic pain; M54.5 Low back pain; M19.019 Primary osteoarthritis, unspecified shoulder; M77.9 Enthesopathy, unspecified; F17.200 Nicotine dependence, unspecified, uncomplicated; Z72.820 Sleep deprivation; Z71.6 Tobacco abuse counseling; Z90.49 Acquired absence of other specified parts of digestive tract; Z79.84 Long term (current) use of oral hypoglycemic drugs; Z79.51 Long term (current) use of inhaled steroids; Z79.890 Hormone replacement therapy; Z79.899 Other long term (current) drug therapy; Z87.828 Personal history of other (healed) physical injury and trauma; Z86.010 Personal history of colon polyps; Z87.19 Personal history of other diseases of the digestive system; Z83.3 Family history of diabetes mellitus; Z81.1 Family history of alcohol abuse and dependence; Z98.890 Other specified postprocedural states
CPT/HCPCS: 36415; 70450; 70496; 70498; 71045; 71250; 78582; 80048; 80053; 80061; 80202; 82565; 82607; 82746; 83036; 83605; 83735; 83880; 84132; 84443; 84484; 85025; 85379; 85610; 85730; 87040; 87636; 93005; 93306; 93970; 94640; 94760; 96361; 96365; 96366; 96367; 96368; 99285

== ENCOUNTER 2022-05-18 01:45 | Emergency (ER) | payer MEDICARE ==
[2022-05-18 01:58] VITALS: RESP 18; TEMP 98.1
[2022-05-18] MEDS ORDERED: dexAMETHasone 2 MG TAB PO STA (02:00)
[2022-05-18] MEDS ORDERED: FAMOTIDINE 20 MG TAB PO STA (02:00)
[2022-05-18] MEDS ORDERED: hydrOXYzine HCL 25 MG TAB PO ONE (02:00)
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
[2022-05-18 02:50] VITALS: BP 139/71; PULSE 71
== END 2022-05-18 02:50 | disposition home or self-care (01) ==
LOC: EC 01:45
DX: T14.8XXA Other injury of unspecified body region, initial encounter (principal); W57.XXXA Bitten or stung by nonvenomous insect and other nonvenomous arthropods, initial encounter; J44.9 Chronic obstructive pulmonary disease, unspecified; E11.9 Type 2 diabetes mellitus without complications; I10 Essential (primary) hypertension; E07.9 Disorder of thyroid, unspecified; F17.200 Nicotine dependence, unspecified, uncomplicated; Z79.899 Other long term (current) drug therapy
CPT/HCPCS: 99281; J8540

== ENCOUNTER 2022-06-10 16:24 | Emergency (ER) | payer MEDICARE ==
[2022-06-10 16:29] VITALS: TEMP 97.4
[2022-06-10] MEDS ORDERED: dexAMETHasone 2 MG TAB PO STA (17:10)
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
[2022-06-10 18:10] VITALS: BP 128/75
[2022-06-10] MEDS ORDERED: HYDROcodone/APAP 10-325MG 1 EACH TAB PO ONE (18:44)
[2022-06-10] MEDS ORDERED: ACET/COD 300 MG/30 MG STARTER PACK 6 TAB BTL PO STA (18:55)
[2022-06-10] MEDS ORDERED: hydrOXYzine HCL 25 MG TAB PO STA (18:56)
[2022-06-10 19:58] VITALS: PULSE 75; RESP 20
[2022-06-10] MEDS ORDERED: TRIAMCINOLONE ACET 0.1% OINTMENT 15 GM TUBE TOPICAL SCH (21:00)
== END 2022-06-10 19:58 | disposition home or self-care (01) ==
LOC: EC 16:24
DX: T14.8XXA Other injury of unspecified body region, initial encounter (principal); L30.9 Dermatitis, unspecified; I10 Essential (primary) hypertension; J44.9 Chronic obstructive pulmonary disease, unspecified; E07.9 Disorder of thyroid, unspecified; Z79.899 Other long term (current) drug therapy; F17.200 Nicotine dependence, unspecified, uncomplicated
CPT/HCPCS: 99282; J8540